=== PATIENT | male | born 1945 | race Caucasian/White ===

== ENCOUNTER 2020-02-03 16:01 | Outpatient (CLI) | payer MEDICARE, SELFPAY ==
--- NOTE | ~2020-02-03 | US_ITS ---
EXAMINATION: US venous doppler [facility] DATE: 02/03/2020 16:40 INDICATION: Right lower limb pain. TECHNIQUE: Grayscale ultrasound images without and with compression and Doppler ultrasound images of the bilateral lower extremity veins were obtained. COMPARISON: Ultrasound 01/27/2019 FINDINGS: The visualized portions of right common femoral vein, profunda (deep) femoral vein, femoral vein, pop liteal vein, peroneal veins, posterior tibial veins, and greater saphenous vein outflow are patent. The visualized portions of left common femoral vein, profunda femoral vein, femoral vein, popliteal v ein, peroneal veins, posterior tibial veins, and greater saphenous vein outflow are patent. IMPRESSION: 1. No deep venous thrombosis. Reviewed, dictated and finalized at location B.
== END 2020-02-03 16:02 | disposition home or self-care (01) ==
PROVIDERS: PCP Family Medicine; Visit Provider Physician Assistant Surgical
DX: M25.561 Pain in right knee (principal); R60.0 Localized edema
CPT/HCPCS: 93970

== ENCOUNTER 2020-06-23 09:00 | Outpatient (RCR) | payer MEDICARE, SELFPAY ==
--- NOTE | 2020-05-31 10:12 | PTOPEVAL ---
PHYSICAL THERAPY EVALUATION AND PLAN OF CARE 05-31-2020 Thank you for referring Orlando Dial to [facility] Rao is scheduled to be seen for therapy? 2-3 x/week for 3 weeks. Please review, sign, date and return this plan of care REEMA. I agree with and certify that the following plan of care is medically necessary. 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 ; Cardiovascular History Hx Hypertension Yes: Meds; Respiratory History Hx Respiratory Disorders No Significant History Gastrointestinal History Hx Gastrointestinal Disorders No Significant History Genitourinary History Hx Genitourinary Disorders No Significant History Musculoskeletal History Hx Musculoskeletal Disorders No Significant History Hematological History Hx Hematological Disorders No Significant History Endocrine History Hx Diabetes Yes: med control HEENT History Hx HEENT Disorders No Significant History Evaluation Information Problem Diagnosis B LE lymphedema Onset Jan 27, 2020 Prior Level of Function Activity Level (Last 3 Months) Occupation retired Activity of Daily Living Ability Independent Indoor/Home Mobility Independent Community Mobility Independent Stairs Ability Independent Functional Cognition (Planning, Shopping Independent , Taking Medications) Cooking Yes Cleaning Yes Laundry Yes Shopping Yes Driving Yes Home Setting Home Type House,Multiple Levels Environmental Barriers Stairs, Greater than 4 Living Situation With Spouse Mobility Assistive Devices (Used Last 3 None,Cane Months) Comments Additional Prior Level of Function have steps at home, but stays Comments on main level most of the time ; use cane in community and for distances; no falls since fall in January, that started swelling problems; Pain Assessment Timing of Pain Assessment Timing of Pain Assessment Assessment Self Report Self Report Pain Level 0 Pain Score Pain Score 0: Self Report Additional Pain Score Comments no
--- NOTE | 2020-06-14 14:23 | PCPTNOTE ---
Patient called & cancelled scheduled appointment this date due to broke her arm.]
--- NOTE | 2020-06-16 09:22 | PCPTNOTE ---
pt called and canceled today's appt due to having to care for his , who broke her arm and cannot be left alone at this time.
--- NOTE | 2020-06-23 09:53 | PTOPEVAL ---
PHYSICAL THERAPY DISCHARGE 06-23-2020 Refer to clinical summary below, for his status at discharge. He had been educated on lymphedema care and has compression knee highs, 20-30 mmHg to manage it. Thank you for referring Orlando Dial to [facility].? Please review, sign, date and return this discharge REEMA. I agree with and certify that the following plan of care is medically necessary. Referring Physician Date Attending Provider: Marquez Murray MD Document 06/23/20 09:05 AMAN (Rec: 06/23/20 09:44 AMAN [id number]) Assessment Status Discharge Subjective Information Rao reports: using the Query Text:As Reported By Patient/ compression knee highs; saw Family few days ago, have lost 35# ; is trying to walk more, but has been busy helping , since she fell and fractured her arm; agrees to discharge from PT services. Pain Assessment Timing of Pain Assessment Timing of Pain Assessment Assessment Self Report Self Report Pain Level 0 Pain Score Pain Score 0: Self Report Lower Extremity Range of Motion General Lower Extremity Range of Motion Gross Lower Extremity Range of Motion sitting: hip ER with R and L Comments is able to place foot on thigh - just above knee, with assist of UE's to move Lower Extremity Muscle Strength Testing General Lower Extremity Strength Gross Lower Extremity Strength supine R and L LE: SLR and hip abduction x 20 reps; indep with HEP for LE strengthening and increase walking and activity as toleraated; Gait Assessment Gait Assessment Ambulation Assistive Devices None,Cane Ambulation Ability Independent Additional Ambulation Comments use of cane in community/ at home is not using; Lymphedema Therapy Skin Inspection Location Left Lower Extremity,Right Lower Extremity Skin Observations Absence of Leg Hair,Dorsum Foot Swelling, Hyperpigmentation Lymphedema Stage I Skin Inspection Comment R lower leg with minimal to moderate brown discoloration, without redness; no fibrosis or tenderness over lower leg; minimal dorsum foot edema; L lower leg with minimal brown discoloration without redness
== END 2020-08-15 12:15 | disposition home or self-care (01) ==
LOC: ANHPT 09:00
PROVIDERS: PCP Family Medicine; Visit Provider Plastic Surgery
DX: I89.0 Lymphedema, not elsewhere classified (principal)
CPT/HCPCS: 97140; 97161

== ENCOUNTER 2020-10-19 17:54 | Emergency (ER) | payer MEDICARE, SELFPAY ==
--- NOTE | ~2020-10-19 | XR_ITS ---
EXAMINATION: XR ribs RT 2V w CXR 2V DATE: 10/19/2020 19:06 INDICATION: Lower right back and rib pain post fall TECHNIQUE: PA and lateral views of the chest and 4 views of the right ribs were obtained. COMPARISON: Chest radiograph dated 01/27/2019 FINDINGS: Chronic eventration along the right hemidiaphragm. Again seen are predominantly streaky opacities in the left mid and bilateral lower lung zones. No pleural effusion or pneumothorax. Cardiomegaly. No ev ident rib fractures. Moderate right glenohumeral osteoarthritis. There are bridging osteophytes at mu ltiple levels in the spine, consistent with diffuse idiopathic skeletal hyperostosis (DISH). IMPRESSION: 1. No rib fractures identified. 2. Streaky opacities in the left mid and bilateral lower lung zones and favor atelectasis over pneumo ella. 3. Cardiomegaly. Reviewed, dictated and finalized at location A. IMPRESSION: 1. No rib fractures identified. 2. Streaky opacities in the left mid and bilateral lower lung zones and favor a telectasis over pneumonia. 3. Cardiomegaly.
--- NOTE | ~2020-10-19 | CT_ITS ---
EXAMINATION: CT brain wo con DATE: 10/19/2020 18:54 INDICATION: Fall with head injury in a patient on blood thinners. TECHNIQUE: Computed tomography (CT) of the head was performed without intravenous contrast. Sagittal and coronal reconstructions were performed. The mA was adjusted according to patient size. Iterative reconstruction technique was employed. The dose-length product was 681.00 mGy-cm. COMPARISON: head CT dated 04/21/2009 FINDINGS: No fracture. Small old lacunar infarcts in the right rashid and in the body of the left caudate nucleus and adjacent left frontal davis radiata. No acute intracranial hemorrhage, acute infarction or abno rmal extra axial fluid collection. There is mild scattered white matter hypoattenuation consistent wi th chronic small vessel ischemic disease. Symmetric prominence of the sulci consistent with mild age -appropriate diffuse cerebral volume loss. Ventricles are normal and symmetric. No mass/mass effect. The orbits, paranasal sinuses and mastoid air cells are normal. Intracranial calcified cerebral athe rosclerosis is noted. IMPRESSION: 1. No fracture or acute intracranial process. 2. Small old lacunar infarcts at the left caudate nucleus and right rashid. 3. Age-related changes including mild diffuse volume loss and mild scattered white matter hypoattenua tion consistent with chronic small vessel ischemic disease. Reviewed, dictated and finalized at location A. IMPRESSION: 1. No fracture or acute intracranial process. 2. Small old lacunar infarcts at the left caudate nucleus and right rashid. 3. Age-related changes including mild diffuse volume loss and mild scattered wh ite matter hypoattenuation consistent with chronic small vessel ischemic diseas e.
[2020-10-19 18:23] VITALS: BP 140/64; PULSE 57; RESP 16; TEMP 36.1; O2SAT 95
--- NOTE | 2020-10-19 18:28 | ECG_ITS ---
Measurements Intervals [place] Rate: 60 P: [place]: 0 QRS: -35 QRSD: 85 T: 0 QT: 417 QTc: 418 Interpretive Statements ATRIAL FIBRILLATION LOW QRS VOLTAGE IN PRECORDIAL LEADS ANTEROSEPTAL INFARCT, AGE INDETERMINATE INFERIOR INFARCT, AGE INDETERMINATE BASELINE ARTIFACT- I, II, V4-V6 ABNORMAL ECG Electronically Signed On 10-20-2020 7:06:44 CDT by Richardson Berger D.O.
--- NOTE | 2020-10-19 22:05 | ED.FALL ---
HPI - Fall General Chief Complaint: Fall Stated Complaint: fall with head and back injury, takes coumadin Time Seen by Provider: 10/19/20 21:05 Source: patient Mode of arrival: ambulatory Limitations: no limitations History of Present Illness HPI Narrative: Patient is a 75-year-old male complaining of head and right rib pain after he slipped and fell at home. Patient states that his pain is moderate. Patient denies any neck, chest, back, pelvis, hip or any extremity pain/injury. Related Data Allergies Allergy/AdvReac Type Severity Reaction Status Date / Time No Known Allergies Allergy Verified 06/07/20 14:50 Review of Systems Review of Systems: All systems reviewed & are unremarkable except as noted in HPI and below Constitutional: Constitutional: Denies body ache(s), Denies chills, Denies excessive sweating, Denies fatigue, Denies fever(s), Denies headache(s), Denies lethargy, Denies malaise, Denies weakness and Denies weight loss Eyes: Eyes: Denies blurry vision, Denies change in vision and Denies loss of vision ENT: Denies dizziness, Denies ear discharge, Denies headache(s), Denies lip swelling, Denies epistaxis, Denies nasal congestion, Denies neck pain, Denies throat swelling and Denies tongue swelling Cardiovascular: Cardiovascular: Denies chest pain, Denies chest pain at rest, Denies chest pain with activity, Denies diaphoresis, Denies rapid heart rate, Denies edema, Denies irregular heart rhythm, Denies lightheadedness, Denies palpitations, Denies dyspnea and Denies dyspnea on exertion Respiratory: Respiratory: Denies chest congestion, Denies cough, Denies hemoptysis, Denies dyspnea and Denies dyspnea on exertion Gastrointestinal: Gastrointestinal: Denies abdominal pain, Denies melena, Denies hematochezia, Denies diarrhea, Denies nausea, Denies vomiting and Denies hematemesis Musculoskeletal: Musculoskeletal: Denies abnormal gait, Denies deformity, Denies joint swelling, Denies limited range of motion, Denies neck pain and Denies numbness Neurologic: Denies Abnormal speech present, Denies abnormal gait, Denies confusion, Denies dizziness, Denies headache(s), Denies focal weakness, Denies loss of vision, Denies numbness, Denies Other visual disturbances, Denies Sensory deficit (Neuro) and Denies weakness Psychiatric: Psychiatric: Denies confusion, Denies depression, Denies auditory hallucinations, Denies homicidal ideation and Denies suicidal ideation Endocrine: Endocrine: Denies cold intolerance, Denies excessive sweating, Denies fatigue, Denies heat intolerance and Denies palpitations Hematologic/Lymphatic: Hematologic/Lymphatic: Denies easy bleeding and Denies easy bruising Allergic/Immunologic: Allergic/Immunologic: Denies lip swelling, Denies throat swelling and Denies tongue swelling PMFSH Past Medical History Medical History Arthritis Cancer Cardiac arrhythmia Diabetes Essential hypertension Myocardial infarction Right knee pain Stroke Testicular hypofunction Surgical History Surgical History History of cataract extraction History of tonsillectomy Family History Family History Mother Hypertension Family history of cardiovascular disease Cerebrovascular accident Father Hypertension Cerebrovascular accident Sibling Family history of cardiovascular disease Social History Social History Smoking status: Never smoker Second hand tobacco smoke exposure: No Alcohol intake: never Substance use: never Substance use type: does not use Gender identity (if verbalized by the patient): Male Spiritual care concerns: Yes Agree to blood products: Yes Exam Const: General: cooperative, healthy appearing, comfortable, no acute distress, well developed, alert and awake; No
[2020-10-19] MEDS: HYDROcodone/acetaminophen (*CRX) 5-325 MG TABLET 1 TAB PO (22:53)
[2020-10-19] MEDS: TETANUS,DIPHTHERIA,AC PERTUSSIS ADULT (0.5 ML) BOOSTRIX IM (22:53)
[2020-10-20 00:03] LABS: Glucose Point of Care 225 (65-105)
[2020-10-20 00:39] VITALS: BP 132/86; PULSE 75; RESP 16; TEMP 36.3; O2SAT 97
== END 2020-10-20 00:40 | disposition home or self-care (01) ==
PROVIDERS: Emergency Provider Emergency Medicine; PCP Physician Assistant
DX: S20.211A Contusion of right front wall of thorax, initial encounter (principal); S09.90XA Unspecified injury of head, initial encounter; I48.91 Unspecified atrial fibrillation; Z23 Encounter for immunization; M19.90 Unspecified osteoarthritis, unspecified site; I10 Essential (primary) hypertension; E11.9 Type 2 diabetes mellitus without complications; I25.2 Old myocardial infarction; Z86.73 Personal history of transient ischemic attack (TIA), and cerebral infarction without residual deficits; Z98.49 Cataract extraction status, unspecified eye; Z79.01 Long term (current) use of anticoagulants; R94.31 Abnormal electrocardiogram [ECG] [EKG]; W01.0XXA Fall on same level from slipping, tripping and stumbling without subsequent striking against object, initial encounter
CPT/HCPCS: 70450; 71046; 71100; 82948; 90471; 90715; 93005; 99284; A9270

== ENCOUNTER 2021-08-01 10:27 | Outpatient (CLI) | payer MEDICARE, SELFPAY ==
--- NOTE | ~2021-08-01 | US_ITS ---
EXAMINATION: US venous doppler LE RT DATE: 08/01/2021 11:17 INDICATION: Open wound at the right lower limb. TECHNIQUE: Grayscale ultrasound images without and with compression and Doppler ultrasound images of the right lower extremity veins were obtained. COMPARISON: 02/03/2020 FINDINGS: The visualized portions of right common femoral vein, profunda (deep) femoral vein, femoral vein, pop liteal vein, peroneal trunk, posterior tibial veins, peroneal veins, gastrocnemius vein and greater s aphenous vein outflow are patent. IMPRESSION: 1. No deep venous thrombosis in the right lower limb. Reviewed, dictated and finalized at location A. ERENTIAL SPECIALIST
== END 2021-08-01 10:28 | disposition home or self-care (01) ==
PROVIDERS: PCP Family Medicine; Visit Provider Family Medicine
DX: M79.89 Other specified soft tissue disorders (principal)
CPT/HCPCS: 93971

== ENCOUNTER 2021-08-18 07:29 | Outpatient (RCR) | payer MEDICARE, SELFPAY ==
[2021-08-10 09:38] VITALS: BMI 40.9
--- NOTE | 2021-08-17 09:02 | PCWOUND ---
WOCN NOTE patient called to cancel appointment for today due to the weather conditions. Rescheduled for tomorrow 08/18/21 at 1230. Patient to call and cancel if weather still bad.
--- NOTE | 2021-08-29 15:15 | PCWOUND ---
WOCN NOTE patient called to cancel his appointment on 08/31/21, states that the wound is healed. Will contact wound center for any questions or concerns in the future.
== END 2021-10-31 08:47 | disposition home or self-care (01) ==
LOC: ANHWOC 07:29
PROVIDERS: PCP Family Medicine; Visit Provider Family Medicine
DX: I83.009 Varicose veins of unspecified lower extremity with ulcer of unspecified site (principal); L97.909 Non-pressure chronic ulcer of unspecified part of unspecified lower leg with unspecified severity
CPT/HCPCS: 99212; G0463

== ENCOUNTER → 2021-10-31 11:06 | Outpatient (CLI) | payer MEDICARE, SELFPAY ==
--- NOTE | ~2021-10-31 | XR_ITS ---
XR chest 2V DATE: 10/31/2021 11:43 INDICATION: Shortness of breath TECHNIQUE: 2 projections, 3 radiographs COMPARISON: October 19, 2020 PA and lateral chest FINDINGS: Cardiomegaly. Aortic arch calcification. There is pulmonary vascular congestion and redistribution. There infiltrates and/atelectasis in the m id and particularly lower lung zones. There is mild blunting of costophrenic angle suggesting bilater al small pleural effusions. Diffuse osteopenia. IMPRESSION: Cardiac megaly, congestive change Bilateral mid and predominantly lower lung infiltrate and/or atelectasis Reviewed, dictated and finalized at location B.
== END ==
PROVIDERS: PCP Family Medicine; Visit Provider Physician Assistant
DX: R06.02 Shortness of breath (principal); I51.7 Cardiomegaly
CPT/HCPCS: 71046

== ENCOUNTER 2021-11-24 10:04 | Outpatient (CLI) | payer MEDICARE, SELFPAY ==
--- NOTE | ~2021-11-24 | NM_ITS ---
EXAMINATION: NM kimberly stress w perfusion DATE: 11/24/2021 13:30 INDICATION: Obesity presenting with heart failure TECHNIQUE: Rest images were obtained following intravenous administration of 9.8 mCi Tc99m tetrofosmi n (Myoview). The patient was infused intravenously with Lexiscan (Regadenoson). Then, 21.77 mCi Tc99m tetrofosmin (Myoview) was administered intravenously, and stress images were obtained. Data was gadiel nstructed into short axis and horizontal and vertical long axis SPECT images. Gated SPECT images were also obtained. COMPARISON: None. FINDINGS: Perfusion defect on the stress images at the apical anterior, apical lateral, mid anterolat eral, mid inferolateral and basilar inferolateral segments which is primarily reversible consistent w ith ischemia. Small mild nonreversible infarct evident on the rest images at the apical lateral and m id anterolateral segments. There is normal left ventricular chamber size, wall motion and ejection f raction. Left ventricular ejection fraction measures >70%. IMPRESSION: 1. Mild predominantly reversible ischemia involving a significant portion of the left circumflex yony nary artery vascular distribution with small mild nonreversible infarct at the apical lateral and mid anterolateral segments. 2. Left ventricular ejection fraction measuring >70%. Reviewed, dictated and finalized at location B. IMPRESSION: 1. Mild predominantly reversible ischemia involving a significant portion of th e left circumflex coronary artery vascular distribution with small mild nonreve rsible infarct at the apical lateral and mid anterolateral segments. 2. Left ventricular ejection fraction measuring >70%.
--- NOTE | 2021-11-24 10:14 | EST_ITS ---
Patient Info Name: Orlando Dial Age: 76 years : 1945 Gender: Male Ht: 72 in Wt: 299 lbs BSA: 2.68 m2 Exam Date: 11/24/2021 11:22 AM Exam Location: [facility] Stress Patient Status: Outpatient Admit Date: 11/24/2021 Staff Ordering Physician: Richardson Berger DO Attending Provider: Richardson Berger DO Exercise Technologist: Betzaida Lara RDCS Exercise Physician: Richardson Berger DO Exam Type: CA stress kimberly w NM Study Info Indications - HEART FAILURE A regadenoson stress test was performed. Summary 1. 1. Negative lexiscan stress test for ischemic ST changes by ECG criteria. 2. 2. Baseline hypertension. 3. 3. Nuclear scan to follow and will be reported separately. Please correlate with it. 4. 4. Patient informed of the above results. Protocol: Lexiscan Stress ECG Details Stage: REST Duration (min): 0 min : 48 sec HR (bpm): 76 SBP (mmHg): 143 DBP (mmHg): 97 Stage: REST Duration (min): 6 min : 17 sec HR (bpm): 77 SBP (mmHg): 143 DBP (mmHg): 97 Stage: STAGE 1 Duration (min): 1 min : 0 sec HR (bpm): 89 SBP (mmHg): 125 DBP (mmHg): 82 Stage: RECOVERY Duration (min): 1 min : 0 sec HR (bpm): 83 SBP (mmHg): 125 DBP (mmHg): 82 Stage: RECOVERY Duration (min): 2 min : 0 sec HR (bpm): 87 SBP (mmHg): 153 DBP (mmHg): 70 Stage: RECOVERY Duration (min): 3 min : 0 sec HR (bpm): 84 SBP (mmHg): 153 DBP (mmHg): 70 Stage: RECOVERY Duration (min): 3 min : 25 sec HR (bpm): 77 SBP (mmHg): 134 DBP (mmHg): 68 Rest HR: 77 bpm Peak HR: 95 bpm Rest Sys BP: 143 mmHg Peak Sys BP: 153 mmHg Max Pred HR: 142 bpm % Max Pred HR: 67 % Target HR: 121 bpm Max RPP: 14,535 bpm*mmHg Termination Reason: Completed protocol Cardiac Symptoms: None Total Time: 1 min : 0 sec Rest Tsang BP: 97 mmHg Peak Tsang BP: 70 mmHg Total Dose: 0.4 mg Resting ECG Atrial fibrillation, low voltage in diffuse leads, borderline ST abnormality in diffuse leads. Stress ECG No ST changes. Arrhythmias None. Report Signatures
== END 2021-11-24 10:05 | disposition home or self-care (01) ==
PROVIDERS: PCP Family Medicine; Visit Provider Internal Medicine Cardiovascular Disease
DX: I50.9 Heart failure, unspecified (principal)
CPT/HCPCS: 78452; 93017; A9502; J2785

== ENCOUNTER 2021-11-27 07:25 | Outpatient (CLI) | payer MEDICARE, SELFPAY ==
--- NOTE | 2021-11-27 07:30 | ECHO_ITS ---
Patient Info Name: Orlando Dial Age: 76 years : 1945 Gender: Male Ht: 72 in Wt: 300 lbs BSA: 2.69 m2 HR: 70 bpm BP: 127 / 69 mmHg Heart Rhythm: Atrial Fibrillation Technical Quality: Fair Exam Date: 11/27/2021 8:03 AM Exam Location: [facility] Patient Status: Outpatient Admit Date: 11/27/2021 Staff Ordering Physician: Richardson Berger DO Facilities Engineering Manager: Betzaida Lara RDCS Attending Provider: Richardson Berger DO Referring Physician: Ab HERNANDEZ; Exam Type: CA echo doppler color flow Study Info Indications I50.9 - Heart failure, unspecified Complete two-dimensional, color flow and Doppler transthoracic echocardiogram is performed. Summary 1. Complete two-dimensional, color flow and Doppler transthoracic echocardiogram is performed. 2. Left ventricular chamber dimension is normal. 3. Left ventricular systolic function is normal, estimated at 50-55%. 4. The left ventricular diastolic function is abnormal. 5. E/e' 11 is mildly elevated. 6. Global longitudinal strain is abnormal at -12.8%. 7. Atrial fibrillation. 8. Right ventricular chamber dimension is mildly enlarged. 9. Right ventricular systolic function is moderately reduced and with abnormal TAPSE 1.3 cm. 10. Left atrial chamber dimension is severely enlarged. 11. Right atrial chamber dimension is severely enlarged. 12. There is mild aortic valve sclerosis. 13. There is mild mitral valve regurgitation. 14. There is trace tricuspid valve regurgitation. 15. Severe pulmonary hypertension, estimated pulmonary arterial systolic pressure is 64 mmHg. 16. There is trace pulmonic regurgitation. 17. Dilated inferior vena cava with >50% collapse upon inspiration consistent with elevated right atrial pressure, 10 mmHg. 18. There is small circumferential pericardial effusion. Left Ventricle E/e' 11 is mildly elevated. Global longitudinal strain is abnormal at -12.8%. Atrial fibrillation. Left ventricular chamber dimension is normal. Left ventricular systolic function is normal, estimated at 50-55%. The left ventricular diastolic function is abnormal. Right Ventricle Right ventricular systolic function is moderately reduced and with abnormal TAPSE 1.3 cm. Right ventricular chamber dimension is mildly enlarged. Left Atria Left atrial chamber dimension is severely enlarged. Right Atria Right atrial chamber dimension is severely enlarged. Aortic Valve The aortic valve is trileaflet. There is mild aortic valve sclerosis. There is no aortic valve stenosis. There is no aortic valve regurgitation. Pulmonic Valve There is trace pulmonic regurgitation. Mitral Valve There is no mitral valve stenosis. There is mild mitral valve regurgitation. Tricuspid Valve There is trace tricuspid valve regurgitation. Severe pulmonary hypertension, estimated pulmonary arterial systolic pressure is 64 mmHg. Pericardium/Pleural There is small circumferential pericardial effusion. Inferior Vena Cava Dilated inferior vena cava with >50% collapse upon inspiration consistent with elevated right atrial pressure, 10 mmHg. Aorta The aortic root size at the sinus of Valsalva is normal. Left Ventricular Outflow Tract Name Value Normal LVOT 2D LVOT Rolanda
== END 2021-11-27 07:26 | disposition home or self-care (01) ==
PROVIDERS: PCP Family Medicine; Visit Provider Internal Medicine Cardiovascular Disease
DX: I50.9 Heart failure, unspecified (principal); I48.91 Unspecified atrial fibrillation; R93.1 Abnormal findings on diagnostic imaging of heart and coronary circulation; I08.3 Combined rheumatic disorders of mitral, aortic and tricuspid valves; I27.20 Pulmonary hypertension, unspecified; I31.3 Pericardial effusion (noninflammatory)
CPT/HCPCS: 93306

== ENCOUNTER 2023-04-03 09:19 | Outpatient (CLI) | payer MEDICARE, SELFPAY ==
[2023-04-03 10:50] LABS: Influenza A QL RT-PCR Negative (Negative); Influenza B QL RT-PCR Negative (Negative); RSV RNA, RT-PCR Negative (Negative); SARS-CoV-2 RNA PCR Negative (Negative)
== END 2023-04-03 09:20 | disposition home or self-care (01) ==
LOC: ANHLAB 09:21
PROVIDERS: PCP Family Medicine; Visit Provider Physician Assistant
DX: R05.9 Cough, unspecified (principal); Z20.822 Contact with and (suspected) exposure to COVID-19
CPT/HCPCS: 87637

== ENCOUNTER 2023-10-08 09:43 | Emergency (ER) | payer MEDICARE, SELFPAY ==
[2023-10-08] VITALS (22 sets, daily range): BP systolic 120–149; BP diastolic 61–83; PULSE 51–72; RESP 13–30; TEMP 36.5; O2SAT 94–98
--- NOTE | ~2023-10-08 | XR_ITS ---
XR chest 1V 10/08/2023 11:35 Indication: CVA. Hypertension. Procedure: AP view of the chest Comparison: No prior studies for comparison. Findings: Cardiomegaly. Mild interstitial edema appear elevated right diaphragm. No significant effus ion. No pneumothorax. Impression: 1: Cardiomegaly with interstitial edema. Reviewed, dictated and finalized at location B. Impression: 1: Cardiomegaly with interstitial edema.
--- NOTE | ~2023-10-08 | CT_ITS ---
EXAMINATION: CTA BRAIN/CAROTID DATE: 10/08/2023 11:27 INDICATION: Stroke with 3 days of dizziness TECHNIQUE: Computed tomographic angiography (CTA) of the head and neck was performed with 100 mL Omni paque-350 intravenous contrast. Multiplanar reconstructions and maximum intensity projection 3D-recon structions of the carotid arteries and of the intracranial arteries were created by the technologist on a separate workstation. Precontrast CT of the head was also obtained. Automated exposure control and iterative reconstruction technique were employed.The dose-length product was 1876.77 mGy-cm. COMPARISON: None. FINDINGS: Carotid arteries: Visualized aortic arch is normal in caliber with no dissection. There is a small amount of nonhemodyn amically significant atherosclerotic plaque along the bilateral common carotid arteries. There is sma ll amount of atherosclerotic plaque with 0% stenosis of the right carotid bulb relative to normal dis earl artery lumen diameter (NASCET criteria). The more cephalad cervical portion of the bilateral inte rnal carotid arteries are tortuous. Visualized upper lungs are clear. 1.3 cm left thyroid nodule. Cer vical soft tissues and superior mediastinum are unremarkable. Mild thoracic spondylosis. Head: Small old lacunar infarct at the left parietal lobe davis radiata. No acute intracranial hemorrhage, acute infarction or abnormal extra axial fluid collection. There is mild scattered white matter hypo attenuation consistent with chronic small vessel ischemic disease. Symmetric prominence of the sulci consistent with mild to moderate age-appropriate diffuse cerebral volume loss. Ventricles are normal and symmetric. No mass/mass effect. Changes of bilateral intraocular lens replacement. The orbits, paranasal sinuses and mastoid air cells are normal. Intracranial arteries Right vertebral artery is dominant. There is small amount of nonhemodynamically significant atheroscl erotic plaque along the bilateral vertebral arteries and at the bilateral carotid siphons. Bilateral A1 and P1 segments are patent. There is also a patent anterior communicating artery. There is some at herosclerotic plaque along the bilateral M1 segments. In addition there are irregular contours to sev eral of the smaller arteries including the left M1 and bilateral P1 segments and the left vertebral a rteries segments with beads on a string appearance which can be seen with fibromuscular dysplasia. Th ere is a severe >70% stenosis at the bifurcation of the left M1 segment. There is a moderate 50-70% s tenosis at the left P1 segment and along the left vertebral artery. There are no aneurysms identified . Cerebral arterial arborization appears symmetric. IMPRESSION: 1. Small amount of atherosclerotic plaque with 0% stenosis of the right and left carotid bulbs relati ve to normal distal artery lumen diameter (NASCET criteria). 2. Irregular contour to many of the smaller intracranial arteries with beads on a string appearance c onsistent with fibromuscular dysplasia. This is most prominent at the left vertebral and left P1 segm ents where there is of 50-70% stenosis and at the bifurcation of the left M1 segment where there is a >70% stenosis. 3. Small old lacunar infarct at the left parietal lobe davis radiata. 3. Age-related changes including mild to moderate diffuse volume loss and mild scattered white matter hypoattenuation consistent with chronic small vessel ischemic disease. Reviewed, dictated and finalized at location A. IMPRESSION: 1. Small amount of atherosclerotic plaque with 0% stenosis of the right and lef t carotid bulbs relative to normal distal artery lumen diameter (NASCET criteri a). 2. Irregular contour to many of the smaller intracranial arteries with beads on a string appearance c
--- NOTE | 2023-10-08 10:15 | ECG_ITS ---
SEE SCANNED COPY FOR CONFIRMED REPORT MTDD
[2023-10-08 10:29] LABS: Basophils Absolute Auto 0.1 K/mm3 (0.0-0.1); Basophils Percent Auto 0.8 % (0.2-1.2); Eosinophils Absolute Auto 0.2 K/mm3 (0-0.3); Eosinophils Percent Auto 2.2 % (0-4.4); Hematocrit 44.7 % (42.0-52.0); Hemoglobin 14.4 g/dL (14.0-18.0); Immature Granulocyte Absolute 0.04 K/mm3 (0.00-0.031); Immature Granulocyte Percent A 0.5 % (0-0.5); Immature Platelet Fraction Pct 2.8 % (0.9-11.2); Lymphocytes Absolute Auto 1.37 K/mm3 (0.9-3.2); Lymphocytes Percent Auto 16.2 % (18.3-44.2); Mean Corpuscular HGB Conc 32.2 g/dl (32-36); Mean Corpuscular Hemoglobin 29.2 pg (26-34); Mean Corpuscular Volume 90.7 fl (80-100); Mean Platelet Volume 10.2 fl (7.4-10.4); Monocytes Absolute Auto 0.6 K/mm3 (0.1-0.6); Monocytes Percent Auto 6.6 % (2.6-8.5); Neutrophils Absolute Auto 6.3 K/mm3 (1.3-6.7); Neutrophils Percent Auto 73.7 % (45.5-73.1); Platelet Count Result 132 k/mm3 (150-375); Red Blood Count 4.93 M/mm3 (4.6-6.20); Red Cell Distribution Width 15.4 % (11.5-14.5); White Blood Count 8.5 K/mm3 (4.5-10.0)
[2023-10-08 10:37] LABS: Alanine Aminotransferase 15 U/L (6-50); Albumin Level 4.2 g/dL (3.5-5.1); Alkaline Phosphatase 107 U/L (38-126); Anion Gap 9 mmol/L (4-12); Aspartate Amino Transferase 22 U/L (17-59); Bilirubin,Total 1.4 mg/dL (0.2-1.3); Blood Urea Nitrogen 28 mg/dL (9-20); Calcium 9.2 mg/dL (8.4-10.2); Carbon Dioxide 24 mmol/L (22-30); Chloride 107 mmol/L (98-107); Estimated CRCL calculation 81 ml/min; Estimated Glomerular Filt Rate > 60; Glucose 169 mg/dL (65-110); Sodium 140 mmol/L (137-145)
[2023-10-08 10:43] LABS: INR 2.3; Prothrombin Time 26.8 Seconds (11.1-14.7)
--- NOTE | 2023-10-08 10:43 | ED.DIZZY ---
HPI - Dizziness General Chief Complaint: Dizziness Stated Complaint: dizzy Time Seen by Provider: 10/08/23 10:07 History of Present Illness HPI Narrative: 78-year-old male presenting to the emergency department for evaluation of onset vertigo symptoms that started at 2:00 a.m.. Patient states he is having no symptoms yesterday but woke up at 2:00 a.m. to walk to the bathroom he was having increased spinning sensation. Patient states when he is at rest he has no associated numbness weakness language changes or dizziness. But when he ambulates he has onset of a spinning sensation. 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 Related Data Allergies Allergy/AdvReac Type Severity Reaction Status Date / Time No Known Allergies Allergy Verified 10/08/23 09:52 Review of Systems Review of Systems: All systems reviewed & are unremarkable except as noted in HPI and below PMFSH Past Medical History Medical History Arthritis Cancer Cardiac arrhythmia Diabetes Essential hypertension Myocardial infarction Right knee pain Stroke Testicular hypofunction Urinary symptom or sign Surgical History Surgical History History of cataract extraction History of tonsillectomy Family History Family History Mother Hypertension Family history of cardiovascular disease Cerebrovascular accident Father Hypertension Cerebrovascular accident Sibling Family history of cardiovascular disease Social History Social History Smoking status: Never smoker Second hand tobacco smoke exposure: No Alcohol intake: never Substance use: never Substance use type: does not use Do You Feel Safe in your Home?: Yes Lack of Transportation: No Lack of Food: Never True Current Housing: I Have Housing Concerned About Future Housing: No Difficulty Paying Gas/Electric Bills: No Difficulty Paying for Meds: No Currently Unemployed: No Education: Master's Degree or Higher Difficulty w/ Childcare or Family Care: No Living arrangements: with family Occupation/Education: retired Gender identity (if verbalized by the patient): Male Spiritual care concerns: Yes Agree to blood products: Yes Exam Narrative: APPEARANCE: Well appearing, no pain, no distress, well-nourished. HEAD: normocephalic, atraumatic. EYES: PERRLA/EOMI, conjunctivae clear. NOSE: Normal no drainage EARS:TMS clear with good light reflex. THROAT: Pharynx clear, no exudate. NECK: Supple. No adenopathy, no masses. RESPIRATORY: Airway patent, respirations nonlabored. Clear to auscultation bilaterally, no rales, rhonchi, wheezing. CARDIOVASCULAR: Regular rate and rhythm without murmurs rubs or gallops. ABDOMINAL: Soft, nontender, nondistended, normal bowel sounds MUSCULOSKELETAL: Moves all extremities. Strength/ROM intact, No edema, No calf tenderness. NEURO: Alert. Cranial nerves II through XII intact. Normal strength reflexes with no focal deficit SKIN: Warm, dry. Normal Color Course Course Emergency Course: Patient did feel improved with treatment. Vital Signs Vital signs: Vital Signs Temperature 97.7 F 10/08/23 09:49 Pulse Rate 64 10/08/23 09:49 Respiratory Rate 18 10/08/23 09:49 Blood Pressure 130/61 10/08/23 09:49 Pulse Oximetry 97 10/08/23 09:49 Oxygen Delivery Room Air 10/08/23 09:49 Temperature 97.7 F 10/08/23 09:49 Pulse Rate 57 L 10/08/23 13:15 Respiratory Rate 21 H 10/08/23 13:15 Blood Pressure 130/70 10/08/23 13:01 Pulse Oximetry 97 10/08/23 13:15 Oxygen Delivery Room Air 10/08/23 09:49 MDM - Dizziness MDM Narrative Medical decision making narrative: 78-year-old male presenting to the emergency department for evaluation for acute onset of intermittent vertigo starting
[2023-10-08 10:44] LABS: Partial Thromboplastin Time 46.5 Seconds (22.3-36.8)
[2023-10-08 10:49] LABS: Troponin I < 0.012 ng/mL (0.000-0.034)
[2023-10-08] MEDS: MECLIZINE HCL 25 MG TABLET PO (11:47)
== END 2023-10-08 14:03 | disposition home or self-care (01) ==
PROVIDERS: Emergency Provider Emergency Medicine; PCP Family Medicine
DX: R42 Dizziness and giddiness (principal); I10 Essential (primary) hypertension; I25.2 Old myocardial infarction; E11.9 Type 2 diabetes mellitus without complications; M19.90 Unspecified osteoarthritis, unspecified site; Z86.73 Personal history of transient ischemic attack (TIA), and cerebral infarction without residual deficits; Z98.49 Cataract extraction status, unspecified eye; I51.7 Cardiomegaly; J81.1 Chronic pulmonary edema; I48.91 Unspecified atrial fibrillation
CPT/HCPCS: 36415; 70496; 70498; 71045; 80053; 84484; 85025; 85055; 85610; 85730; 93005; 99284; A9270; Q9967

== ENCOUNTER 2023-12-02 10:29 | Inpatient (IN) | payer MEDICARE, SELFPAY ==
--- NOTE | ~2023-12-02 | XR_ITS ---
XR foot RT min 3V Ordering provider: Rolando Felder APRN History: . fall yesterday pain RT ANKLE RADIATING INTO FOOT . Comparison: None. FINDINGS: BONES: Fracture of the medial and lateral malleolus is noted. Fracture of the distal calcaneus is als o noted. Fracture at the base of the proximal phalanx of the second and third toe with no displacemen t. The fractures are most likely extending to the joint. JOINT SPACES: Normal. No tarsal coalition. SOFT TISSUES: Normal. IMPRESSION: Fracture of the medial and lateral malleoli. Fracture of the distal calcaneus. Highly suggestive fracture at the base of the proximal phalanx of the second and third toes. Reviewed, dictated and finalized at location A. IMPRESSION: Fracture of the medial and lateral malleoli. Fracture of the distal calcaneus. Highly suggestive fracture at the base of the proximal phalanx of the second an d third toes.
--- NOTE | ~2023-12-02 | CT_ITS ---
EXAMINATION: CT ankle RT wo con DATE: 12/02/2023 12:12 INDICATION: Right ankle fracture TECHNIQUE: Computed tomography (CT) of the right ankle was performed without intravenous contrast. Au tomated exposure control and iterative reconstruction technique were employed. The dose-length produc t was 526.38 mGy-cm. COMPARISON: Right ankle radiographs dated 12/02/2023 FINDINGS: Marked diffuse osteopenia suspicious for pablito osteoporosis. Trimalleolar fracture at the right ankle with minimally displaced mildly comminuted fractures of the distal fibula which extends the oblique coronal plane from possible posteriorly to distal anteriorly with the fracture margin extending acros s the medial cortex anteriorly at the level of the tibiotalar joint line. There is also a minimally d isplaced transverse fracture across the medial malleolus and a nondisplaced coronally oriented fractu re extending across the posterior malleolus. There is also subtle linear calcific densities overlying the anteromedial and medial margins of the medial malleolus suspicious for mildly elevated small cor tical avulsion fractures. Alignment remains near-anatomic with congruent ankle mortise. No other frac tures identified at the talus or visualized mid or hindfoot. Prominent soft tissue in the subcutaneou s edema about the distal lower leg, ankle and extending over the dorsum of the hindfoot. No significa nt ankle joint effusion. Small enthesophytes and tiny enthesopathic ossicles at the calcaneal inserti on of the distal quadriceps tendon. IMPRESSION: 1. Minimally displaced trimalleolar fracture of the right ankle which remains in near-anatomic alignm ent. 2. Marked diffuse osteopenia suspicious for pablito osteoporosis. Reviewed, dictated and finalized at location A. IMPRESSION: 1. Minimally displaced trimalleolar fracture of the right ankle which remains i n near-anatomic alignment. 2. Marked diffuse osteopenia suspicious for pablito osteoporosis.
--- NOTE | ~2023-12-02 | XR_ITS ---
Right ankle Technique: AP, oblique, and lateral views were obtained. Clinical History: Pain Findings: There is an acute, oblique, mildly displaced fracture of the lateral meniscus, at and just proximal to the level ankle mortise. There is a transverse, minimally fracture of the medial malleolu s. Questionable posterior malleolus fracture on lateral view. Fractures overall minimally displaced. Ankle mortise and other visualized joint spaces are preserved. Diffuse soft tissue swelling noted. Impression: Acute fractures of the medial and lateral malleoli, as detailed above, with questionable additional p osterior malleolus fracture. Consider CT to confirm or exclude posterior malleolus fracture, as indic ated. Alignment of the ankle mortise is near anatomic. Soft tissue swelling. Reviewed, dictated and finalized at location . Impression: Acute fractures of the medial and lateral malleoli, as detailed above, with que stionable additional posterior malleolus fracture. Consider CT to confirm or ex clude posterior malleolus fracture, as indicated. Alignment of the ankle mortise is near anatomic. Soft tissue swelling.
[2023-12-02 10:30] VITALS: BP 161/58; PULSE 72; RESP 18; TEMP 36.4; O2SAT 96
--- NOTE | 2023-12-02 11:16 | ED.LOWEXIN ---
HPI - Extremity Injury (Lower) General Chief Complaint: Extremity Injury, Lower <Rolando Felder APRN - Last Filed: 12/02/23 15:37> Stated Complaint: fall, R. ankle pain <Rolando Felder APRN - Last Filed: 12/02/23 15:37> Time Seen by Provider: 12/02/23 10:32 <Rolando Felder APRN - Last Filed: 12/02/23 15:37> Source: patient <Rolando Felder APRN - Last Filed: 12/02/23 15:37> Mode of arrival: ambulatory <Rolando Felder APRN - Last Filed: 12/02/23 15:37> Limitations: no limitations <Rolando Felder APRN - Last Filed: 12/02/23 15:37> History of Present Illness HPI Narrative: Orlando is an 78-year-old male patient presenting to the emergency room with complaints of fall that occurred last night when coming down the stairs. He reports he injured his right ankle. Has right ankle swelling and tenderness. Is unable to bear weight without significant pain. <Rolando Felder APRN - Last Filed: 12/02/23 15:37> Related Data Home Medications: Home Medications Medication Instructions Recorded Confirmed insulin glargine 100 unit/mL (3 40 unit subcut HS 12/02/23 12/02/23 mL) subcutaneous pen (Lantus Solostar U-100 Insulin) metformin 500 mg tablet,extended 2,000 mg PO HS 12/02/23 12/02/23 release 24 hr <Rolando Felder APRN - Last Filed: 12/02/23 15:37> Allergies/Adverse Reactions: Allergies Allergy/AdvReac Type Severity Reaction Status Date / Time No Known Allergies Allergy Verified 10/15/23 09:17 <Rolando Felder APRN - Last Filed: 12/02/23 15:37> Review of Systems Review of Systems: Pertinent positives per HPI. Patient denies any fever, chills, rash, headache, visual changes, dizziness, cough, runny nose, sore throat, shortness of breath, chest pain, palpitations, nausea, vomiting, diarrhea, constipation, abdominal pain, or any urinary issues. <Rolando Felder APRN - Last Filed: 12/02/23 15:37> [facility] Past Medical History Medical History: Medical History Arthritis Cancer prostate cancer Cardiac arrhythmia atrial fibrillation Diabetes Essential hypertension Myocardial infarction Right knee pain Stroke Testicular hypofunction Urinary symptom or sign <Rolando Felder APRN - Last Filed: 12/02/23 15:37> Surgical History Surgical History: Surgical History History of cataract extraction History of tonsillectomy <Rolando Felder APRN - Last Filed: 12/02/23 15:37> Family History Family History: Family History Mother Hypertension Family history of cardiovascular disease Cerebrovascular accident Father Hypertension Cerebrovascular accident Sibling Family history of cardiovascular disease <Rolando Felder APRN - Last Filed: 12/02/23 15:37> Social History Social History: Social History Smoking status: Never smoker Second hand tobacco smoke exposure: No Alcohol intake: never Substance use: never Substance use type: does not use Do You Feel Safe in your Home?: Yes Lack of Transportation: No Lack of Food: Never True Current Housing: I Have Housing Concerned About Future Housing: No Difficulty Paying Gas/Electric Bills: No Difficulty Paying for Meds: No Currently Unemployed: No Education: Master's Degree or Higher Difficulty w/ Childcare or Family Care: No Living arrangements: with family Occupation/Education: retired Gender identity (if verbalized by the patient): Male Spiritual care concerns: Yes Agree to blood products: Yes <Rolando Felder APRN - Last Filed: 12/02/23 15:37> Comments At the time of my signature, I reviewed and agree with the nursing past medical, surgical, social, and family his
[2023-12-02] MEDS: HYDROcodone/acetaminophen (*CRX) 7.5-325 MG TABLET 1 TAB PO (12:59)
[2023-12-02 14:24] VITALS: BP 115/50; PULSE 66; RESP 18; O2SAT 98
--- NOTE | 2023-12-02 14:25 | PC.NURSE ---
Pt contacted for evaluation at this time.
[2023-12-02 16:08] VITALS: BP 123/56; PULSE 66; RESP 18; TEMP 36.4; O2SAT 95
[2023-12-02 16:19] LABS: Basophils Percent Auto 0.4 % (0.2-1.2); Eosinophils Absolute Auto 0.1 K/mm3 (0-0.3); Eosinophils Percent Auto 1.2 % (0-4.4); Hematocrit 42.2 % (42.0-52.0); Hemoglobin 13.5 g/dL (14.0-18.0); Immature Granulocyte Absolute 0.03 K/mm3 (0.00-0.031); Immature Granulocyte Percent A 0.3 % (0-0.5); Lymphocytes Absolute Auto 1.34 K/mm3 (0.9-3.2); Lymphocytes Percent Auto 14.5 % (18.3-44.2); Mean Corpuscular Hemoglobin 29.6 pg (26-34); Mean Corpuscular Volume 92.5 fl (80-100); Mean Platelet Volume 10.7 fl (7.4-10.4); Monocytes Absolute Auto 0.8 K/mm3 (0.1-0.6); Neutrophils Absolute Auto 6.9 K/mm3 (1.3-6.7); Neutrophils Percent Auto 74.6 % (45.5-73.1); Platelet Count Result 109 k/mm3 (150-375); Red Blood Count 4.56 M/mm3 (4.6-6.20); Red Cell Distribution Width 15.6 % (11.5-14.5); White Blood Count 9.3 K/mm3 (4.5-10.0)
--- NOTE | 2023-12-02 16:25 | PM.IMHP ---
H&P: HPI History of Present Illness Date/Time: 12/02/23 16:25 Chief Complaint: Fall Narrative: This is a pleasant 78-year-old gentleman with a past medical history significant for arthritis, prostate cancer, atrial fibrillation on Coumadin, diabetes on Lantus, hypertension, and stroke. The patient reported to the emergency room after sustaining a fall yesterday. He provides the following history. He states he was coming up the stairs from the basement when he tripped on the last step causing him to fall and injure his right ankle. He was able to walk on his foot with some discomfort, therefore he thought he had sprained his ankle. Over the next 24 hours pain increased and he had moderate swelling and ecchymosis to his right ankle. These symptoms prompted him to come to the emergency room for further evaluation. In the ER x-ray of his right ankle shows acute fractures of the medial and lateral malleoli with questionable posterior med malleolus fracture. Foot x-ray shows fracture of distal calcaneal and vanna suggestive fracture at the base of the proximal phalanx of the 2nd 3rd toes. There is also fracture of the medial and lateral malleoli as previously stated. Soft tissue swelling also noted. Further imaging under CT showed minimally displaced trimalleolar fracture of the right ankle in near anatomic alignment with marked diffuse osteopenia. Orthopedics was consulted and recommended posterior OCL splint placed with Radha and abdominal pad to the posterior heel. Patient is to be nonweightbearing. The patient was unable to tolerate crutch walking and therefore required admission for PT OT consult with need for possible placement in the interim until swelling can decrease in surgery can be performed. Cardiology was also consulted in the ER given patient's Coumadin. Cardiology is okay with holding Coumadin 5 days prior to surgery. They have been consulted for surgical clearance. In the ED lab significant for hemoglobin 13.5, platelet 109, BUN 30, creatinine 1.0, glucose 276. His vitals are stable with a blood pressure 123/56, heart rate 66. His medications have been reviewed and restarted. [facility] Past Medical History Medical History Arthritis Cancer prostate cancer Cardiac arrhythmia atrial fibrillation Diabetes Essential hypertension Myocardial infarction Right knee pain Stroke Testicular hypofunction Urinary symptom or sign Surgical History Surgical History History of cataract extraction History of tonsillectomy Family History Family History Mother Hypertension Family history of cardiovascular disease Cerebrovascular accident Father Hypertension Cerebrovascular accident Sibling Family history of cardiovascular disease Social History Social History Smoking status: Never smoker Second hand tobacco smoke exposure: No Alcohol intake: never Substance use: never Substance use type: does not use Do You Feel Safe in your Home?: Yes Lack of Transportation: No Lack of Food: Never True Current Housing: I Have Housing Concerned About Future Housing: No Difficulty Paying Gas/Electric Bills: No Difficulty Paying for Meds: No Currently Unemployed: No Education: Master's Degree or Higher Difficulty w/ Childcare or Family Care: No Living arrangements: with family Occupation/Education: retired Gender identity (if verbalized by the patient): Male Spiritual care concerns: Yes Agree to blood products: Yes Meds Home Medications and Allergies Home Medications Medication Instructions Recorded Confirmed Type blood sugar diagnostic #100 ea 03/01/21 12/02/23 Rx furosemide 40 mg tablet See Rx Instructions .Route 07/10/22 12/02/23 Rx .COMPLEX #180 tabs warfarin 1
[2023-12-02 16:27] LABS: Alanine Aminotransferase 15 U/L (6-50); Albumin Level 3.9 g/dL (3.5-5.1); Alkaline Phosphatase 97 U/L (38-126); Anion Gap 8 mmol/L (4-12); Aspartate Amino Transferase 20 U/L (17-59); Bilirubin,Total 1.1 mg/dL (0.2-1.3); Blood Urea Nitrogen 30 mg/dL (9-20); Calcium 8.5 mg/dL (8.4-10.2); Carbon Dioxide 23 mmol/L (22-30); Chloride 106 mmol/L (98-107); Estimated CRCL calculation 74 ml/min; Estimated Glomerular Filt Rate > 60; Glucose 276 mg/dL (65-110); Potassium 4.2 mmol/L (3.4-5.0); Sodium 137 mmol/L (137-145)
--- NOTE | 2023-12-02 16:37 | ADMGEN ---
This patient, Orlando Dial, was admitted to Medical Room 341-01. Patient/family oriented to hospital policies and general routines including ID bracelet, bed and alarms, visiting hours, pain management, procedures, bathroom and other care routines, personal items, smoking policy, room service/diet, and visiting hours. Information on how to activate the Rapid Response Team has been discussed. Patient/Family are encouraged to report perceived risks to care and to ask questions if they do not understand what they are told or what they should do.
[2023-12-02 17:20] VITALS: BMI 40.4
[2023-12-02] MEDS: ACETAMINOPHEN 325 MG TABLET 650 MG PO (20:47)
[2023-12-02] MEDS: TAMSULOSIN HCL 0.4 MG CAPSULE PO (20:53)
[2023-12-02 21:02] VITALS: BP 151/68; PULSE 68; RESP 18; TEMP 36.3; O2SAT 96
[2023-12-02] MEDS: INSULIN GLARGINE (*BKC) 100 UNITS/ML 32 UNITS SUB-Q (21:05)
[2023-12-02 21:38] LABS: Glucose Point of Care 209 mg/dl (65-105)
[2023-12-03] MEDS: ACETAMINOPHEN 325 MG TABLET 650 MG PO ×3 (01:02→20:19)
[2023-12-03 04:20] VITALS: BP 126/58; PULSE 68; RESP 18; TEMP 36.5; O2SAT 96
[2023-12-03 06:29] LABS: Basophils Percent Auto 0.5 % (0.2-1.2); Eosinophils Absolute Auto 0.3 K/mm3 (0-0.3); Eosinophils Percent Auto 3.3 % (0-4.4); Hematocrit 40.6 % (42.0-52.0); Hemoglobin 12.9 g/dL (14.0-18.0); Immature Granulocyte Absolute 0.03 K/mm3 (0.00-0.031); Immature Granulocyte Percent A 0.4 % (0-0.5); Immature Platelet Fraction Pct 4.1 % (0.9-11.2); Lymphocytes Absolute Auto 1.55 K/mm3 (0.9-3.2); Lymphocytes Percent Auto 18.7 % (18.3-44.2); Mean Corpuscular HGB Conc 31.8 g/dl (32-36); Mean Corpuscular Hemoglobin 29.7 pg (26-34); Mean Corpuscular Volume 93.5 fl (80-100); Mean Platelet Volume 11.3 fl (7.4-10.4); Monocytes Absolute Auto 0.8 K/mm3 (0.1-0.6); Neutrophils Absolute Auto 5.6 K/mm3 (1.3-6.7); Neutrophils Percent Auto 67.1 % (45.5-73.1); Platelet Count Result 93 k/mm3 (150-375); Red Blood Count 4.34 M/mm3 (4.6-6.20); Red Cell Distribution Width 15.8 % (11.5-14.5); White Blood Count 8.3 K/mm3 (4.5-10.0)
[2023-12-03 07:15] LABS: Alanine Aminotransferase 11 U/L (6-50); Albumin Level 3.5 g/dL (3.5-5.1); Alkaline Phosphatase 85 U/L (38-126); Anion Gap 7 mmol/L (4-12); Aspartate Amino Transferase 19 U/L (17-59); Bilirubin,Total 1.5 mg/dL (0.2-1.3); Blood Urea Nitrogen 30 mg/dL (9-20); Calcium 8.6 mg/dL (8.4-10.2); Carbon Dioxide 28 mmol/L (22-30); Chloride 105 mmol/L (98-107); Estimated CRCL calculation 74 ml/min; Estimated Glomerular Filt Rate > 60; Glucose 155 mg/dL (65-110); Potassium 4.6 mmol/L (3.4-5.0); Sodium 140 mmol/L (137-145)
[2023-12-03 07:45] LABS: Magnesium 2.2 mg/dL (1.6-2.3)
[2023-12-03] MEDS: allopurinoL 300 MG TABLET PO (08:23)
[2023-12-03] MEDS: DOCUSATE SODIUM 100 MG CAPSULE PO ×2 (08:23→17:18)
[2023-12-03] MEDS: FUROSEMIDE 40 MG TABLET BY MOUTH (08:24)
[2023-12-03] MEDS: SIMVASTATIN 10 MG TABLET PO (08:24)
[2023-12-03] MEDS: IRBESARTAN 150 MG TABLET 300 MG PO (08:24)
[2023-12-03] MEDS: EMPAGLIFLOZIN 25 MG TABLET BY MOUTH (08:39)
[2023-12-03] MEDS: glipiZIDE XL 5 MG TABCR 10 MG BY MOUTH (08:39)
[2023-12-03 08:46] LABS: Glucose Point of Care 170 mg/dl (65-105)
[2023-12-03 09:29] VITALS: O2SAT 96
--- NOTE | 2023-12-03 10:09 | P.PNIM_ITS ---
Progress Note: A&P Assessment and Plan (1) Closed trimalleolar fracture: Qualifiers: Encounter type: initial encounter Laterality: right Qualified Code(s): S82.851A - Displaced trimalleolar fracture of right lower leg, initial encounter for closed fracture Code(s): S82.853A - Displaced trimalleolar fracture of unspecified lower leg, initial encounter for closed fracture Status: Acute Assessment and Plan: 12/02/23: Orthopedics recommending splint and non-weight bearing status. Will need surgical intervention once the swelling has decreased. * splint placed in the ED * PT/OT consult for placement--may need fpc short stay until surgery can be completed * NWB to right foot * Tylenol, ibuprofen, norco, morphine for pain per scale * Elevate and ICE RLE 12/03/23: * Continue with pain control * Nonweightbearing right lower extremity * Continue to elevate and ice right lower extremity * PT and OT ordered * Plan for surgery once swelling has decreased (2) CHF (congestive heart failure): Code(s): I50.9 - Heart failure, unspecified Status: Acute Assessment and Plan: 12/02/23: Stable. Appears euvolemic. * Continue Lasix 40 mg, Irbesartan in 300 mg, * ECHO from 2021 shows LV systolic function normal with EF of 50-55%, abnormal diastolic dysfunction, a-fib, RV systolic function moderately reduced, left and right atrial chambers severely enlarged. * Repeat ECHO if recommended by cards 12/03/23: * No change to current treatment plan (3) Atrial fibrillation and flutter: Code(s): I48.91 - Unspecified atrial fibrillation; I48.92 - Unspecified atrial flutter Status: Acute Assessment and Plan: 12/02/23: EKG ordered and pending collection History of a-fib on Coumadin Coumadin currently on hold due to edema and surgery pending. Cardiology consulted for surgical clearance. 12/03/23: * Coumadin currently on hold due to pending surgery * Cardiology to see patient today for cardiac clearance for surgery (4) Diabetes: Qualifiers: Diabetes mellitus complication status: with hyperglycemia Diabetes mellitus usp insulin use: without intermediate school teacher use Diabetes mellitus type: type 2 Qualified Code(s): E11.65 - Type 2 diabetes mellitus with hyperglycemia Code(s): E11.9 - Type 2 diabetes mellitus without complications Status: Acute Assessment and Plan: 12/02/23: * Hgb A1C 7.9% * Lantus restarted at 20% reduction of home dose * high dose SSI * hypoglycemia protocol 12/03/23: * Blood glucose ranging 155-170 * Continue high-dose sliding scale insulin * Continue hypoglycemic protocol * Increase Lantus to 40 units subQ HS * Continue glipizide * Continue to hold metformin (5) BENNY on CPAP: Code(s): G47.33 - Obstructive sleep apnea (adult) (pediatric); Z99.89 - Dependence on other enabling machines and devices Status: Acute Assessment and Plan: 12/02/23: * Auto titration of home CPAP settings 12/03/23: * No change to current treatment plan Time Spent With Patient Time with patient: 25 - 35 minutes Subjective Date/time seen: 12/03/23 10:09 Interval history: 12/02/23: This is a pleasant 78-year-old gentleman with a past medical history significant for arthritis, prostate cancer, atrial fibrillation on Coumadin, diabetes on Lantus, hypertension, and stroke. The patient reported to the emergency room after sustaining a fall yesterday. He provides the following history. He states he was coming up the stairs from the bas
--- NOTE | 2023-12-03 10:09 | PM.IMPN ---
Progress Note: A&P Assessment and Plan (1) Closed trimalleolar fracture: Qualifiers: Encounter type: initial encounter Laterality: right Qualified Code(s): S82.851A - Displaced trimalleolar fracture of right lower leg, initial encounter for closed fracture Code(s): S82.853A - Displaced trimalleolar fracture of unspecified lower leg, initial encounter for closed fracture Status: Acute Assessment and Plan: 12/02/23: Orthopedics recommending splint and non-weight bearing status. Will need surgical intervention once the swelling has decreased. splint placed in the ED PT/OT consult for placement--may need care home short stay until surgery can be completed NWB to right foot Tylenol, ibuprofen, norco, morphine for pain per scale Elevate and ICE RLE 12/03/23: Continue with pain control Nonweightbearing right lower extremity Continue to elevate and ice right lower extremity PT and OT ordered Plan for surgery once swelling has decreased (2) CHF (congestive heart failure): Code(s): I50.9 - Heart failure, unspecified Status: Acute Assessment and Plan: 12/02/23: Stable. Appears euvolemic. Continue Lasix 40 mg, Irbesartan in 300 mg, ECHO from 2021 shows LV systolic function normal with EF of 50-55%, abnormal diastolic dysfunction, a-fib, RV systolic function moderately reduced, left and right atrial chambers severely enlarged. Repeat ECHO if recommended by cards 12/03/23: No change to current treatment plan (3) Atrial fibrillation and flutter: Code(s): I48.91 - Unspecified atrial fibrillation; I48.92 - Unspecified atrial flutter Status: Acute Assessment and Plan: 12/02/23: EKG ordered and pending collection History of a-fib on Coumadin Coumadin currently on hold due to edema and surgery pending. Cardiology consulted for surgical clearance. 12/03/23: Coumadin currently on hold due to pending surgery Cardiology to see patient today for cardiac clearance for surgery (4) Diabetes: Qualifiers: Diabetes mellitus complication status: with hyperglycemia Diabetes mellitus alf insulin use: without supervisor intermediates use Diabetes mellitus type: type 2 Qualified Code(s): E11.65 - Type 2 diabetes mellitus with hyperglycemia Code(s): E11.9 - Type 2 diabetes mellitus without complications Status: Acute Assessment and Plan: 12/02/23: Hgb A1C 7.9% Lantus restarted at 20% reduction of home dose high dose SSI hypoglycemia protocol 12/03/23: Blood glucose ranging 155-170 Continue high-dose sliding scale insulin Continue hypoglycemic protocol Increase Lantus to 40 units subQ HS Continue glipizide Continue to hold metformin (5) BENNY on CPAP: Code(s): G47.33 - Obstructive sleep apnea (adult) (pediatric); Z99.89 - Dependence on other enabling machines and devices Status: Acute Assessment and Plan: 12/02/23: Auto titration of home CPAP settings 12/03/23: No change to current treatment plan Time Spent With Patient Time with patient: 25 - 35 minutes Subjective Date/time seen: 12/03/23 10:09 Interval history: 12/02/23: This is a pleasant 78-year-old gentleman with a past medical history significant for arthritis, prostate cancer, atrial fibrillation on Coumadin, diabetes on Lantus, hypertension, and stroke. The patient reported to the emergency room after sustaining a fall yesterday. He provides the following history. He states he was coming up the stairs from the basement when he tripped on the last step causing him to fall and injure his right ankle. He was able to walk on his foot with some discomfort, therefore he thought he had sprained his ankle. Over the next 24 hours pain increased and he had moderate swelling and ecchymosis to his right ankle. These symptoms prompted him to come to the emergency room for further evaluation. In the ER x-ray of his right ankle shows acute fractures of
--- NOTE | 2023-12-03 10:30 | ECG_ITS ---
Test Date: 2023-12-03 10:29:53 Measurements Intervals [place] Rate: 74 P: 0 HI: 0 QRS: -6 QRSD: 88 T: -5 QT: 371 QTc: 413 Interpretive Statements ATRIAL FIBRILLATION LOW QRS VOLTAGE IN PRECORDIAL LEADS [QRS DEFLECTION < 1.0 mV IN CHEST LEADS] INFERIOR MYOCARDIAL INFARCTION , PROBABLY OLD [40+ ms Q WAVE AND/OR ST/T ABNORMALITY IN II/aVF] No previous ECG available for comparison Electronically Signed On 12-03-2023 10:54:02 CDT by Claudio Vides M.D.
[2023-12-03 12:37] LABS: Glucose Point of Care 156 mg/dl (65-105)
[2023-12-03 14:00] VITALS: BP 137/63; PULSE 80; RESP 18; TEMP 36.1; O2SAT 98
--- NOTE | 2023-12-03 14:53 | PCOTNOTE ---
Pt declines therapy this afternoon due to being too fatigued and getting back to bed recently.
[2023-12-03 17:14] LABS: Glucose Point of Care 188 mg/dl (65-105)
[2023-12-03 20:00] VITALS: PULSE 72; RESP 18; O2SAT 94
[2023-12-03] MEDS: INSULIN GLARGINE (*BKC) 100 UNITS/ML 40 UNITS SUB-Q (20:19)
[2023-12-03 20:37] VITALS: BP 123/51; PULSE 72; RESP 18; TEMP 36.8; O2SAT 94
[2023-12-03 22:30] VITALS: PULSE 72; RESP 23; O2SAT 97
[2023-12-03 22:43] LABS: Glucose Point of Care 261 mg/dl (65-105)
--- NOTE | 2023-12-04 | ECHO_ITS ---
Patient Info Name: Orlando Dial Age: 78 years : 1945 Gender: Male Ht: 72 in Wt: 297 lbs BSA: 2.67 m2 HR: 95 bpm BP: 153 / 90 mmHg Technical Quality: Fair Exam Date: 12/04/2023 12:17 PM Exam Location: Echo Lab Patient Status: Inpatient Admit Date: 12/02/2023 Staff Ordering Physician: Sarai Seals APRN Real Estate Representative: Sonali Chiu RDCS Attending Provider: Danya Cardona APRN Referring Physician: Arnel JESUS; Exam Type: CA echo doppler color flow Study Info Indications I48.1 - Persistent atrial fibrillation Complete two-dimensional, color flow and Doppler transthoracic echocardiogram is performed. Summary 1. Complete two-dimensional, color flow and Doppler transthoracic echocardiogram is performed. 2. Left ventricular chamber dimension is normal. 3. D shape interventricular septum in systole and diastole suggests right ventricular pressure and volume overload. 4. Left ventricular systolic function is normal, estimated at 60-65%. 5. The left ventricular diastolic function is indeterminate. 6. Atrial fibrillation. 7. Right ventricular chamber dimension is mildly enlarged. 8. Left atrial chamber dimension is moderately enlarged. 9. There is moderate aortic valve sclerosis. 10. The mitral valve has mildly calcified annulus. 11. There is mild tricuspid valve regurgitation. 12. Moderate pulmonary hypertension, estimated pulmonary arterial systolic pressure is 51 mmHg. Left Ventricle Tissue doppler is not performed. Atrial fibrillation. D shape interventricular septum in systole and diastole suggests right ventricular pressure and volume overload. Left ventricular chamber dimension is normal. Left ventricular systolic function is normal, estimated at 60-65%. The left ventricular diastolic function is indeterminate. Right Ventricle Right ventricular systolic function is normal and with normal TAPSE 2.1 cm. Right ventricular chamber dimension is mildly enlarged. Left Atria Left atrial chamber dimension is moderately enlarged. Right Atria Right atrial chamber dimension is normal. Aortic Valve The aortic valve is trileaflet. There is moderate aortic valve sclerosis. There is no aortic valve stenosis. There is no aortic valve regurgitation. Pulmonic Valve There is no pulmonic regurgitation. Mitral Valve The mitral valve has mildly calcified annulus. There is no mitral valve stenosis. There is no mitral valve regurgitation. Tricuspid Valve There is mild tricuspid valve regurgitation. Moderate pulmonary hypertension, estimated pulmonary arterial systolic pressure is 51 mmHg. Pericardium/Pleural There is no pericardial effusion. Inferior Vena Cava Normal inferior vena cava with >50% collapse upon inspiration consistent with normal right atrial pressure, 5 mmHg. Aorta The aortic root size at the sinus of Valsalva is normal. Left Ventricular Outflow Tract Name Value Normal LVOT 2D LVOT Diameter 2.2 cm LVOT Doppler LVOT Peak Gradient 3 mmHg LVOT Mean Gradient 2 mmHg LVOT VTI 17 cm LVOT VTI/AV VTI Ratio 0.9 LVOT Stroke Volume
[2023-12-04 05:34] VITALS: BP 153/90; PULSE 65; RESP 20; TEMP 36.4; O2SAT 94
[2023-12-04 05:42] LABS: Basophils Absolute Auto 0.1 K/mm3 (0.0-0.1); Basophils Percent Auto 0.6 % (0.2-1.2); Eosinophils Absolute Auto 0.4 K/mm3 (0-0.3); Eosinophils Percent Auto 3.9 % (0-4.4); Hematocrit 39.9 % (42.0-52.0); Hemoglobin 12.6 g/dL (14.0-18.0); Immature Granulocyte Absolute 0.07 K/mm3 (0.00-0.031); Immature Granulocyte Percent A 0.8 % (0-0.5); Immature Platelet Fraction Pct 3.3 % (0.9-11.2); Lymphocytes Absolute Auto 1.39 K/mm3 (0.9-3.2); Lymphocytes Percent Auto 14.9 % (18.3-44.2); Mean Corpuscular HGB Conc 31.6 g/dl (32-36); Mean Corpuscular Hemoglobin 29.5 pg (26-34); Mean Corpuscular Volume 93.4 fl (80-100); Mean Platelet Volume 10.7 fl (7.4-10.4); Monocytes Absolute Auto 0.9 K/mm3 (0.1-0.6); Monocytes Percent Auto 10.1 % (2.6-8.5); Neutrophils Absolute Auto 6.5 K/mm3 (1.3-6.7); Neutrophils Percent Auto 69.7 % (45.5-73.1); Platelet Count Result 111 k/mm3 (150-375); Red Blood Count 4.27 M/mm3 (4.6-6.20); Red Cell Distribution Width 15.6 % (11.5-14.5); White Blood Count 9.3 K/mm3 (4.5-10.0)
[2023-12-04 05:55] LABS: Alanine Aminotransferase 11 U/L (6-50); Albumin Level 3.6 g/dL (3.5-5.1); Alkaline Phosphatase 87 U/L (38-126); Anion Gap 5 mmol/L (4-12); Aspartate Amino Transferase 15 U/L (17-59); Bilirubin,Total 1.2 mg/dL (0.2-1.3); Blood Urea Nitrogen 28 mg/dL (9-20); Calcium 8.3 mg/dL (8.4-10.2); Carbon Dioxide 27 mmol/L (22-30); Chloride 107 mmol/L (98-107); Estimated CRCL calculation 82 ml/min; Estimated Glomerular Filt Rate > 60; Glucose 167 mg/dL (65-110); Magnesium 2.2 mg/dL (1.6-2.3); Potassium 3.7 mmol/L (3.4-5.0); Sodium 139 mmol/L (137-145)
--- NOTE | 2023-12-04 07:46 | PM.PNORT ---
Progress Note: A&P Assessment and Plan (1) Closed trimalleolar fracture: Qualifiers: Encounter type: initial encounter Laterality: right Qualified Code(s): S82.851A - Displaced trimalleolar fracture of right lower leg, initial encounter for closed fracture Code(s): S82.853A - Displaced trimalleolar fracture of unspecified lower leg, initial encounter for closed fracture Status: Acute Plan I have just discovered that the patient is admitted. I spoke to the emergency room physician about him on 12/01. There was a question of whether he would be admitted and in fact he was admitted but I was never notified of the admission nor was the patient's name put on our patient list and I think the same holds true with . The ER nurse practitioner put in a consult for both of us. I have spoken to the special weapons unit officer and she will call Dr. Berger and put the patient's name on Dr. Berger's list as well. Patient has a right trimalleolar ankle fracture that has some displacement of the medial and lateral malleoli. There is a minimally displaced posterior malleolus fracture that on the CT scan shows minimal displacement and could be left alone. There is an x-ray report on his foot x-ray of the right foot that indicates a calcaneus fracture. I did not appreciate that on my review of the x-rays and the CT scan of the hindfoot includes the calcaneus and I did not see a calcaneus fracture nor did the radiologist note 1. Patient was admitted with significant swelling and his Coumadin was put on hold. He has never had an INR during this hospitalization and I will order daily INRs to start with today. Swelling usually takes approximately 2 weeks to sufficiently resolved to the point it is safe to proceed with surgery. I am going to plan on scheduling his surgery for 12/16/2023. He has a history of a small chronic lacunar stroke seen on prior CT scan. I do not know of a history of an embolic stroke from his atrial fibrillation. The question would be whether to keep him off the Coumadin until surgery and if that route were chosen, because of his morbid obesity and age, I would recommend DVT prophylaxis with Lovenox 40 mg subQ daily. The Lovenox would then be stopped 1 day before surgery. The other option would be to continue with his Coumadin, resuming it and then stopping it 5 days before surgery to make sure that his INR returns to normal for his surgery. DVT prophylaxis dosing of Lovenox 40 mg once daily could be started the day after his last dose of Coumadin for a little added protection and then stopped 1 day before surgery. I will defer that decision to the energy manager and his recommendation. The meantime he will require strict elevation and strict nonweightbearing on the right ankle. Physical therapy can work with him for transfers as long as he can maintain strict nonweightbearing status Subjective Subjective Date/Time Seen: 12/04/23 07:46 Objective Data Vital Signs Vital Signs: Vital Signs - 24 hr 12/03/23 08:00 12/03/23 09:29 12/03/23 14:00 Temperature 36.1 C L Pulse Rate 80 Respiratory Rate 18 Blood Pressure 137/63 Pulse Oximetry 96 98 Oxygen Delivery Room Air Room Air Fraction of Inspired Oxygen 21 12/03/23 20:37 12/03/23 20:00 12/03/23 22:30 Temperature 36.8 C Pulse Rate 72 72 72 Respiratory Rate 18 18 23 H Blood Pressure 123/51 L Pulse Oximetry 94 94 97 Oxygen Delivery Room Air Autopap Fraction of Inspired Oxygen 12/04/23 05:34 Temperature 36.4 C L Pulse Rate 65 Respiratory Rate 20 Blood Pressure 153/90 H Pulse Oximetry 94 Oxygen Delivery Fraction of Inspired Oxygen Intake/Output Intake/Output: Intake & Output 12/01/23 12/02/23 12/03/23 12/04/23 23:59 23:59 23:59 23:59 Intake Total 480 1790 480 Output Total 400 1900 1050 Balance 80 110 -903 Meds/Results Medications: Active Medications Generic Name Dose Route Start Last Admin Tra
--- NOTE | 2023-12-04 07:55 | P.PNIM_ITS ---
Progress Note: A&P Assessment and Plan (1) Closed trimalleolar fracture: Qualifiers: Encounter type: initial encounter Laterality: right Qualified Code(s): S82.851A - Displaced trimalleolar fracture of right lower leg, initial encounter for closed fracture Code(s): S82.853A - Displaced trimalleolar fracture of unspecified lower leg, initial encounter for closed fracture Status: Acute (2) CHF (congestive heart failure): Code(s): I50.9 - Heart failure, unspecified Status: Acute (3) Atrial fibrillation and flutter: Code(s): I48.91 - Unspecified atrial fibrillation; I48.92 - Unspecified atrial flutter Status: Acute (4) Diabetes: Qualifiers: Diabetes mellitus complication status: with hyperglycemia Diabetes mellitus technician terminal and repeater insulin use: without senior living use Diabetes mellitus type: type 2 Qualified Code(s): E11.65 - Type 2 diabetes mellitus with hyperglycemia Code(s): E11.9 - Type 2 diabetes mellitus without complications Status: Acute (5) BENNY on CPAP: Code(s): G47.33 - Obstructive sleep apnea (adult) (pediatric); Z99.89 - Dependence on other enabling machines and devices Status: Acute (6) Obesity: Code(s): E66.9 - Obesity, unspecified Status: Acute Plan Closed trimalleolar fracture * Orthopedics recommending splint and non-weight bearing status. Will need surgical intervention once the swelling has decreased. * Surgery planned for 12/15 * splint placed in the ED * PT/OT consult for placement--may need group home short stay until surgery can be completed * NWB to right foot * Tylenol, ibuprofen, norco, morphine for pain per scale * Elevate and ICE RLE * Will need to be off Anticoagulation prior to surgery * cardiology consulted for cardiac clearance * Echo pending * Lovenox DVT prophylaxis pending Cardiology recommendation Chronic diastolic heart failure with reserved EF * Stable * cardiology consulted * Resumed PO Lasix * previous echocardiogram results 2021: EF of 50-55%, abnormal diastolic dysfunction, a-fib, RV systolic function moderately reduced, left and right atrial chambers severely enlarged. * echocardiogram pending * EKG: AFIB AFIB/AFLUTTER * EKG AFIB controlled * Coumadin on hold for surgery but surgery is not until 12/15 * ECHO pending * Cardiology consulted for clearance and recommendations on anticoagulation prior to surgery Diabetes * Accu-Cheks a.c. HS * sliding scale insulin * hold oral diabetic medications * resume patient's home long-acting * Diabetic diet * consult to dietitian * encourage lifestyle modifications and weight loss * Optimize Sarkis inhibitors and statins. * Watch for hypoglycemia/hypoglycemic protocol ordered Obesity * encourage increased on physical activity and lifestyle modifications * encourage outpatient weight loss clinic * BMI . * Diet exercise counseling done. * consult to dietitian HX BENNY: resumed CPAP Code status: Full Code DVT prophylaxis: Lovenox Stress ulcer prophylaxis: Protonix 40 daily PT/OT notes: non-weight bearing Disposition: Patient admitted to the medical unit for RT ankle fracture with non-weight bearing status. Surgery will not be scheduled until 12/15 to allow for swelling to improve. CC currently working on short stay to [facility]/SNF prior to surgery. Time Spent With Patient Time with patient: 15 - 25 minutes Subjective Date/time seen: 12/04/23 07:
--- NOTE | 2023-12-04 07:55 | PM.IMPN ---
Progress Note: A&P Assessment and Plan (1) Closed trimalleolar fracture: Qualifiers: Encounter type: initial encounter Laterality: right Qualified Code(s): S82.851A - Displaced trimalleolar fracture of right lower leg, initial encounter for closed fracture Code(s): S82.853A - Displaced trimalleolar fracture of unspecified lower leg, initial encounter for closed fracture Status: Acute (2) CHF (congestive heart failure): Code(s): I50.9 - Heart failure, unspecified Status: Acute (3) Atrial fibrillation and flutter: Code(s): I48.91 - Unspecified atrial fibrillation; I48.92 - Unspecified atrial flutter Status: Acute (4) Diabetes: Qualifiers: Diabetes mellitus complication status: with hyperglycemia 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 Will need surgical intervention once the swelling has decreased. Surgery planned for 12/15 splint placed in the ED PT/OT consult for placement--may need long term short stay until surgery can be completed NWB to right foot Tylenol, ibuprofen, norco, morphine for pain per scale Elevate and ICE RLE Will need to be off Anticoagulation prior to surgery cardiology consulted for cardiac clearance Echo pending Lovenox DVT prophylaxis pending Cardiology recommendation Chronic diastolic heart failure with reserved EF Stable cardiology consulted Resumed PO Lasix previous echocardiogram results 2021: EF of 50-55%, abnormal diastolic dysfunction, a-fib, RV systolic function moderately reduced, left and right atrial chambers severely enlarged. echocardiogram pending EKG: AFIB AFIB/AFLUTTER EKG AFIB controlled Coumadin on hold for surgery but surgery is not until 12/15 ECHO pending Cardiology consulted for clearance and recommendations on anticoagulation prior to surgery Diabetes Accu-Cheks a.c. HS sliding scale insulin hold oral diabetic medications resume patient's home long-acting Diabetic diet consult to dietitian encourage lifestyle modifications and weight loss Optimize Sarkis inhibitors and statins. Watch for hypoglycemia/hypoglycemic protocol ordered Obesity encourage increased on physical activity and lifestyle modifications encourage outpatient weight loss clinic BMI . Diet exercise counseling done. consult to dietitian HX BENNY: resumed CPAP Code status: Full Code DVT prophylaxis: Lovenox Stress ulcer prophylaxis: Protonix 40 daily PT/OT notes: non-weight bearing Disposition: Patient admitted to the medical unit for RT ankle fracture with non-weight bearing status. Surgery will not be scheduled until 12/15 to allow for swelling to improve. CC currently working on short stay to [facility]/SNF prior to surgery. Time Spent With Patient Time with patient: 15 - 25 minutes Subjective Date/time seen: 12/04/23 07:55 Interval history: 12/02/23: This is a pleasant 78-year-old gentleman with a past medical history significant for arthritis, prostate cancer, atrial fibrillation on Coumadin, diabetes on Lantus, hypertension, and stroke. The patient reported to the emergency room after sustaining a fall yesterday. He provides the following history. He states he was coming up the stairs from the basement when he tripped on the last step causing him to fall and injure his right ankle. He was able to walk on his vinh
[2023-12-04 08:15] LABS: Glucose Point of Care 181 mg/dl (65-105)
[2023-12-04 08:35] LABS: INR 1.7; Prothrombin Time 20.2 Seconds (11.1-14.7)
[2023-12-04] MEDS: DOCUSATE SODIUM 100 MG CAPSULE PO ×2 (09:30→17:21)
[2023-12-04] MEDS: IRBESARTAN 150 MG TABLET 300 MG PO (09:31)
[2023-12-04] MEDS: EMPAGLIFLOZIN 25 MG TABLET BY MOUTH (09:31)
[2023-12-04] MEDS: FUROSEMIDE 40 MG TABLET BY MOUTH (09:31)
[2023-12-04] MEDS: allopurinoL 300 MG TABLET PO (09:31)
[2023-12-04] MEDS: PANTOPRAZOLE 40 MG TABLET PO (09:31)
[2023-12-04] MEDS: SIMVASTATIN 10 MG TABLET PO (09:31)
[2023-12-04] MEDS: polyethylene glycoL 3350 17 GM POWD.PACK PO (09:33)
[2023-12-04] MEDS: ENOXAPARIN 40 MG/0.4 ML SYRINGE SUB-Q (09:33)
--- NOTE | 2023-12-04 12:03 | PM.CNCAR ---
Assessment and Plan Assessment and plan (1) Preop cardiovascular exam: Code(s): Z01.810 - Encounter for preprocedural cardiovascular examination Status: Acute Assessment and Plan: He is at low cardiac risk and he may proceed to noncardiac surgery without further cardiac workup. He has been holding Warfarin for a couple of days and INR today is 1.7. On Lovenox 40 mg daily for DVT prophylaxis. I would rather start him on Eliquis 5 mg BID until 2 days prior to scheduled surgery and resume a day after surgery if OK with surgeon. Stop Lovenox. (2) Atrial fibrillation: Qualifiers: Atrial fibrillation type: paroxysmal Qualified Code(s): I48.0 - Paroxysmal atrial fibrillation Code(s): I48.91 - Unspecified atrial fibrillation Status: Acute Assessment and Plan: Asymptomatic. Rate is normal. [id number] which is high risk for cardioembolism off anticoagulation. Was on Warfarin and was getting INR regularly and being followed by PCP for it. (3) Essential hypertension: Code(s): I10 - Essential (primary) hypertension Status: Acute Assessment and Plan: Stable. (4) Dyslipidemia: Code(s): E78.5 - Hyperlipidemia, unspecified Status: Acute Assessment and Plan: On Simvastatin. History of Present Illness History of Present Illness Consult date/time: 12/04/23 12:03 Reason For Visit: Closed Trimalleolar Frac of the R Ankle/R Calcanea Narrative: Patient is a 78 yr old man who is my regular cardiology patient presents to hospital for fractured ankle. He has a history of atrial fibrillation ([id number] at least 4. On Coumadin and rate control. Asymptomatic. INR being followed by PCP.), hypertension, DM, dyslipidemia, CVA (Had a total of 5 strokes with slurred speech and weakness, resolved. Unknown etiology.), PAD, BENNY intolerant of CPAP. States he was walking up from basement, made it to top step and twisted his ankle and fell. He has fractured right ankle needing surgery. He has GIBBS at minimal distance and edema of both legs are improving with lasix. Denies chest pain, sob, orthopnea, palpitations. Cardiovascular Procedures Head Of Stock:: 12/22/[address] Garcia: Ectatic coronaries with sluggish flow but no focal stenosis. Echo/MUGA:: 11/27/21 Echo: EF 50-55%, diastolic dysfunction (E/e' 11), mild RVE and mod hypokinesis, severe biatrial enlargement, mild MR, trace TR, RVSP 64 mmHg, small pericardial effusion. Echo (EF 60-65%, mod LVE, mod LVH, diastolic dysfunction (E/e' 12), atrial fib, mild LAE, mild-mod MR, RVSP 50 mmHg, trace PI, trace pericardial effusion.) - 03/03/2019 Electrophysiology:: 11/17/21 EKG: Atrial fibrillation at 44 bpm, PVC, PRWP, consider anterior infarct, low voltage in diffuse leads, borderline ST-T wave in diffuse leads. 10/19/20 EKG: Atrial fibrillation at 60, anteroseptal infarct, inferior infarct, age indeterminate. EKG (Atrial fibrillation with HR 59 bpm, low voltage, BRWP, borderline T wave in inferior leads.) - 01/27/2019 Stress Tests:: 11/24/21 Lexiscan myoview: Abnormal with mild ischemia of LCx distribution and fixed apical lateral and mid anterolateral defects; EF >70%. NADEEM (NADEEM right 0.97, TBI 0.51; NADEEM left 1.13, TBI 0.6.) - 03/06/2019 Venous Duplex (Negative for DVT of right leg.) - 01/27/2019 Sleep Study (Mod BENNY with desaturation to 86%.) - 10/16/2016 Review of Systems Review of Systems: All systems reviewed & are unremarkable except as noted in HPI and below Constitutional: Constitutional: Reports as per HPI, Denies chills and Denies fever(s) Cardiovascular: Cardiovascular: Reports as per HPI, Denies chest pain and Denies irregular heart rhythm Respiratory: Respiratory: Reports as per HPI and Denies dyspnea Gastrointestinal: Gastrointestinal: Reports as per HPI and Denies abdominal pain Genitourinary: Genitourinary: Reports as per HPI and Denies dysuria Musculoskeletal: Musculoskeletal: Reports as per HPI and Reports arthralg
--- NOTE | 2023-12-04 12:11 | PCPTNOTE ---
The patient treatment was not able to be completed due to patient receiving test at bedside. Will plan to continue treatment per plan of care.
[2023-12-04 12:58] LABS: Glucose Point of Care 175 mg/dl (65-105)
[2023-12-04 14:12] VITALS: BP 128/62; PULSE 72; RESP 20; TEMP 36.2; O2SAT 97
[2023-12-04] MEDS: ACETAMINOPHEN 325 MG TABLET 650 MG PO ×2 (14:37→20:54)
[2023-12-04 17:05] LABS: Glucose Point of Care 165 mg/dl (65-105)
--- NOTE | 2023-12-04 17:11 | PM.CNOR ---
Assessment and Plan Assessment and plan (1) Closed trimalleolar fracture: Qualifiers: Encounter type: initial encounter Laterality: right Qualified Code(s): S82.851A - Displaced trimalleolar fracture of right lower leg, initial encounter for closed fracture Code(s): S82.853A - Displaced trimalleolar fracture of unspecified lower leg, initial encounter for closed fracture Status: Acute Assessment and Plan: 78-year-old male who has a displaced unstable right trimalleolar ankle fracture. Again it is most likely going to take approximately 10 days for the swelling to go down so that it is safe to proceed with surgery. It is not going to be a safe situation for the patient to go home as he has minimal help. He is also morbidly obese and there is a risk that he is going to step on the right ankle at home since he does not have the help he needs there. Is going to be best for the patient to go to rehab facility so that he has proper care and has a safe environment to keep leg elevated to get the swelling down to proceed with surgery. Cardiology is seeing the patient today and has done an echo and has been cleared for surgery. He has been taken off his Coumadin and Eliquis 5 mg b.i.d. has been started. the Eliquis 48 hours prior to surgery and then resume it the day after surgery. Cardiology is in agreement with this plan. We will plan to do surgery on Saturday the to proceed with ORIF of the medial and lateral malleolus. Surgical procedures well as risks and complications were discussed in detail all questions were answered. I am going to order a vitamin-D 25 hydroxy as well as an hemoglobin A1c since he is diabetic. Care coordination has been consulted they will get the patient to a rehab facility. History of Present Illness HPI Consult date: 12/04/23 Chief complaint: Closed Trimalleolar Frac of the R Ankle/R Calcanea Narrative: 78-year-old male who is well known to myself who fell Saturday 3 days ago at home. He missed this footing and fell landing awkwardly on the right lower extremity. He had pain and swelling in the ankle. At he thought he only had sprained it and he walked on it throughout the day on Saturday and Saturday morning he continued pain that became more severe in the ankle and was brought to the emergency room by ambulance. X-rays in the ER demonstrate a displaced medial and lateral malleolar fracture of the right ankle. He had a CT scan done of the ankle which also showed some small fracturing of the posterior malleolus. Patient was placed into a posterior OCL splint. He was admitted due to the inability to care for himself at home due to the fact that he is strict nonweightbearing. Patient has been on Coumadin chronically for his AFib and Dr. Mann at spoke to the ER physician prior to patient being placed in a splint. Patient already had significant swelling in the foot and ankle. Typically these trimalleolar ankle fractures will swell quite a bit but also with the patient being on Coumadin this is going to increase the swelling unfortunately. felt that the safest course of action would be to allow the swelling to improve over the course of the next 10 days before proceeding with surgery. This is a displaced trimalleolar fracture and it will need to be fixed with ORIF of the medial and lateral malleolus. The small fracture to the posterior malleolus will be allowed to heal without surgical intervention. Patient has past medical history of AFib as well as type 2 diabetes. [facility] Past Medical History Medical History Arthritis Cancer prostate cancer Cardiac arrhythmia atrial fibrillation Diabetes Essential hypertension Myocardial infarction Right knee pain Stroke Testicular hypofunction Urinary symptom or sign Surgical History Surgical History History of cataract ex
[2023-12-04 19:18] LABS: Vitamin D 25 Hydroxy 47.1 ng/mL
[2023-12-04 20:00] VITALS: PULSE 72; RESP 20; O2SAT 97
[2023-12-04 20:33] LABS: Hemoglobin A1C 7.3 % (<5.7)
[2023-12-04 20:50] LABS: Glucose Point of Care 200 mg/dl (65-105)
[2023-12-04] MEDS: APIXABAN 5 MG TABLET PO (20:54)
[2023-12-04] MEDS: INSULIN GLARGINE (*BKC) 100 UNITS/ML 40 UNITS SUB-Q (20:55)
[2023-12-04 21:05] VITALS: BP 106/59; PULSE 60; RESP 20; TEMP 36.1; O2SAT 98
[2023-12-04] MEDS: TOLNAFTATE 1% POWDER 45 GM BTL 1 APPLIC TOPICAL (21:45)
[2023-12-05 06:00] VITALS: BP 112/67; PULSE 77; RESP 18; TEMP 35.9; O2SAT 97
[2023-12-05 06:13] LABS: Hematocrit 40.7 % (42.0-52.0); Hemoglobin 12.7 g/dL (14.0-18.0); Immature Platelet Fraction Pct 3.9 % (0.9-11.2); Mean Corpuscular HGB Conc 31.2 g/dl (32-36); Mean Corpuscular Volume 92.9 fl (80-100); Mean Platelet Volume 10.4 fl (7.4-10.4); Platelet Count Result 130 k/mm3 (150-375); Red Blood Count 4.38 M/mm3 (4.6-6.20); Red Cell Distribution Width 15.6 % (11.5-14.5); White Blood Count 9.1 K/mm3 (4.5-10.0)
[2023-12-05 06:21] LABS: Alanine Aminotransferase 11 U/L (6-50); Albumin Level 3.6 g/dL (3.5-5.1); Alkaline Phosphatase 90 U/L (38-126); Anion Gap 6 mmol/L (4-12); Aspartate Amino Transferase 18 U/L (17-59); Bilirubin,Total 1.4 mg/dL (0.2-1.3); Blood Urea Nitrogen 26 mg/dL (9-20); Calcium 8.5 mg/dL (8.4-10.2); Carbon Dioxide 31 mmol/L (22-30); Chloride 102 mmol/L (98-107); Estimated CRCL calculation 68 ml/min; Estimated Glomerular Filt Rate > 60; Glucose 148 mg/dL (65-110); Potassium 4.1 mmol/L (3.4-5.0); Sodium 139 mmol/L (137-145)
[2023-12-05 06:22] LABS: INR 1.6; Prothrombin Time 19.7 Seconds (11.1-14.7)
--- NOTE | 2023-12-05 07:38 | PM.PNCARD ---
Progress Note: A&P Assessment and Plan (1) Preop cardiovascular exam: Code(s): Z01.810 - Encounter for preprocedural cardiovascular examination Status: Acute Assessment and Plan: He is at low cardiac risk and he may proceed to noncardiac surgery without further cardiac workup. He has been holding Warfarin for a couple of days and INR was 1.7. On Lovenox 40 mg daily for DVT prophylaxis. Started 12/04/23 on Eliquis 5 mg BID until 2 days prior to scheduled surgery and resume a day after surgery if OK with surgeon. Stopped Lovenox. Will sign off. Please call with any questions. He has regular f/u with me already. (2) Atrial fibrillation: Qualifiers: Atrial fibrillation type: paroxysmal Qualified Code(s): I48.0 - Paroxysmal atrial fibrillation Code(s): I48.91 - Unspecified atrial fibrillation Status: Acute Assessment and Plan: Asymptomatic. Rate is normal. [id number] which is high risk for cardioembolism off anticoagulation. Was on Warfarin and was getting INR regularly and being followed by PCP for it. (3) Essential hypertension: Code(s): I10 - Essential (primary) hypertension Status: Acute Assessment and Plan: Stable. (4) Dyslipidemia: Code(s): E78.5 - Hyperlipidemia, unspecified Status: Acute Assessment and Plan: On Simvastatin. Subjective Date/time seen: 12/05/23 07:38 Interval history: Denies chest pain or sob. Exam Const: General: cooperative, healthy appearing, comfortable and obese Nutritional Appearance: obese Orientation/consciousness: oriented to person, oriented to place and oriented to time Resp: Auscultation: clear to auscultation bilaterally, no crackles, no rales, no rhonchi and no wheezes Cardio: Rate: regular rate Rhythm: abnormal rhythm Heart sounds: no murmurs Peripheral pulses: dorsalis pedis present Neuro: General: oriented to person, oriented to place and oriented to time Extrem: Left lower extremity: no edema Other: Right leg wrapped Objective Data Vital Signs Vital Signs: Vital Signs - 24 hr 12/04/23 08:00 12/04/23 11:32 12/04/23 14:12 Temperature 97.2 F L Pulse Rate 72 Respiratory Rate 20 Blood Pressure 128/62 Pulse Oximetry 97 Oxygen Delivery Room Air Room Air Fraction of Inspired Oxygen 12/04/23 20:00 12/04/23 21:05 12/05/23 06:00 Temperature 96.9 F L 96.7 F L Pulse Rate 72 60 77 Respiratory Rate 20 20 18 Blood Pressure 106/59 L 112/67 Pulse Oximetry 97 98 97 Oxygen Delivery Room Air Fraction of Inspired Oxygen 21 Intake/Output Intake/Output: Intake & Output 12/02/23 12/03/23 12/04/23 12/05/23 23:59 23:59 23:59 23:59 Intake Total 480 1790 1500 480 Output Total 400 1900 1650 675 Balance 80 -110 -150 -195 Meds/Results Medications: Active Medications Generic Name Dose Route Start Last Admin Trade Name Freq PRN Reason Stop Dose Admin Acetaminophen 650 mg 12/02/23 17:19 12/04/23 20:54 Acetaminophen 325 Mg Tablet PO 650 mg Q4H PRN Administration Mild Pain (1-3) or Fever Hydrocodone Bitart/Acetaminophen 1 tab 12/02/23 17:19 Hydrocodone/Acetaminophen (*Crx) 5-325 Mg Tablet PO Q4H PRN Moderate Pain (4-6) Allopurinol 300 mg 12/03/23 09:00 12/04/23 09:31 Allopurinol 300 Mg Tablet PO 300 mg DAILY RHODA Administration Apixaban 5 mg 12/04/23 21:00 12/04/23 20:54 Apixaban 5 Mg Tablet PO 12/13/23 21:00 5 mg Q12HR RHODA Administration Dextrose 12.5 gm 12/02/23 17:24 Dextrose 50% 25 Gm/50 Ml Syringe IV PUSH PRN PRN Hypoglycemia Protocol Docusate Sodium 100 mg 12/03/23 09:00 12/04/23 17:21 Docusate Sodium 100 Mg Capsule PO 100 mg BID RHODA Administration Empagliflozin 25 mg 12/03/23 09:00 12/04/23 09:31 Empagliflozin 25 Mg Tablet BY MOUTH 25 mg DAILY RHODA Administration Furosemide 40 mg 12/03/23 09:00 12/04/23 09:31 Furosemide 40 Mg Tablet B
--- NOTE | 2023-12-05 08:12 | P.PNIM_ITS ---
Progress Note: A&P Assessment and Plan (1) Closed trimalleolar fracture: Qualifiers: Encounter type: initial encounter Laterality: right Qualified Code(s): S82.851A - Displaced trimalleolar fracture of right lower leg, initial encounter for closed fracture Code(s): S82.853A - Displaced trimalleolar fracture of unspecified lower leg, initial encounter for closed fracture Status: Acute (2) CHF (congestive heart failure): Code(s): I50.9 - Heart failure, unspecified Status: Acute (3) Atrial fibrillation and flutter: Code(s): I48.91 - Unspecified atrial fibrillation; I48.92 - Unspecified atrial flutter Status: Acute (4) Diabetes: Qualifiers: Diabetes mellitus complication status: with hyperglycemia 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 Will need surgical intervention once the swelling has decreased. * Surgery planned for 12/15 * splint placed in the ED * PT/OT consult for placement--may need [facility] short stay until surgery can be completed * NWB to right foot * Tylenol, ibuprofen, norco, morphine for pain per scale * Elevate and ICE RLE * Will need to be off Anticoagulation prior to surgery * cardiology consulted for cardiac clearance * Echo pending * Lovenox DVT prophylaxis pending Cardiology recommendation Chronic diastolic heart failure with reserved EF * Stable * cardiology consulted * Resumed PO Lasix * previous echocardiogram results 2021: EF of 50-55%, abnormal diastolic dysfunction, a-fib, RV systolic function moderately reduced, left and right atrial chambers severely enlarged. * echocardiogram pending * EKG: AFIB AFIB/AFLUTTER * EKG AFIB controlled * Coumadin on hold for surgery but surgery is not until 12/15 * ECHO pending * Cardiology consulted for clearance and recommendations on anticoagulation prior to surgery Diabetes * Accu-Cheks a.c. HS * sliding scale insulin * hold oral diabetic medications * resume patient's home long-acting * Diabetic diet * consult to dietitian * encourage lifestyle modifications and weight loss * Optimize Sarkis inhibitors and statins. * Watch for hypoglycemia/hypoglycemic protocol ordered Obesity * encourage increased on physical activity and lifestyle modifications * encourage outpatient weight loss clinic * BMI . * Diet exercise counseling done. * consult to dietitian HX BENNY: resumed CPAP Code status: Full Code DVT prophylaxis: Eliquis Stress ulcer prophylaxis: Protonix 40 daily PT/OT notes: non-weight bearing Disposition: Patient admitted to the medical unit for RT ankle fracture with non-weight bearing status. Surgery will not be scheduled until 12/15 to allow for swelling to improve. CC currently working on short stay to [facility]NF prior to surgery. Time Spent With Patient Time with patient: 15 - 25 minutes Subjective Date/time seen: 12/05/23 08:
--- NOTE | 2023-12-05 08:12 | PM.IMPN ---
Progress Note: A&P Assessment and Plan (1) Closed trimalleolar fracture: Qualifiers: Encounter type: initial encounter Laterality: right Qualified Code(s): S82.851A - Displaced trimalleolar fracture of right lower leg, initial encounter for closed fracture Code(s): S82.853A - Displaced trimalleolar fracture of unspecified lower leg, initial encounter for closed fracture Status: Acute (2) CHF (congestive heart failure): Code(s): I50.9 - Heart failure, unspecified Status: Acute (3) Atrial fibrillation and flutter: Code(s): I48.91 - Unspecified atrial fibrillation; I48.92 - Unspecified atrial flutter Status: Acute (4) Diabetes: Qualifiers: Diabetes mellitus complication status: with hyperglycemia 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 Will need surgical intervention once the swelling has decreased. Surgery planned for 12/15 splint placed in the ED PT/OT consult for placement--may need group home short stay until surgery can be completed NWB to right foot Tylenol, ibuprofen, norco, morphine for pain per scale Elevate and ICE RLE Will need to be off Anticoagulation prior to surgery cardiology consulted for cardiac clearance Echo pending Lovenox DVT prophylaxis pending Cardiology recommendation Chronic diastolic heart failure with reserved EF Stable cardiology consulted Resumed PO Lasix previous echocardiogram results 2021: EF of 50-55%, abnormal diastolic dysfunction, a-fib, RV systolic function moderately reduced, left and right atrial chambers severely enlarged. echocardiogram pending EKG: AFIB AFIB/AFLUTTER EKG AFIB controlled Coumadin on hold for surgery but surgery is not until 12/15 ECHO pending Cardiology consulted for clearance and recommendations on anticoagulation prior to surgery Diabetes Accu-Cheks a.c. HS sliding scale insulin hold oral diabetic medications resume patient's home long-acting Diabetic diet consult to dietitian encourage lifestyle modifications and weight loss Optimize Sarkis inhibitors and statins. Watch for hypoglycemia/hypoglycemic protocol ordered Obesity encourage increased on physical activity and lifestyle modifications encourage outpatient weight loss clinic BMI . Diet exercise counseling done. consult to dietitian HX BENNY: resumed CPAP Code status: Full Code DVT prophylaxis: Eliquis Stress ulcer prophylaxis: Protonix 40 daily PT/OT notes: non-weight bearing Disposition: Patient admitted to the medical unit for RT ankle fracture with non-weight bearing status. Surgery will not be scheduled until 12/15 to allow for swelling to improve. CC currently working on short stay to [facility]NF prior to surgery. Time Spent With Patient Time with patient: 15 - 25 minutes Subjective Date/time seen: 12/05/23 08:12 Interval history: 12/02/23: This is a pleasant 78-year-old gentleman with a past medical history significant for arthritis, prostate cancer, atrial fibrillation on Coumadin, diabetes on Lantus, hypertension, and stroke. The patient reported to the emergency room after sustaining a fall yesterday. He provides the following history. He states he was coming up the stairs from the basement when he tripped on the last step causing him to fall and injure his right ankle. He was able to walk on his vinh
[2023-12-05 08:28] LABS: Glucose Point of Care 189 mg/dl (65-105)
[2023-12-05] MEDS: SIMVASTATIN 10 MG TABLET PO (08:41)
[2023-12-05] MEDS: PANTOPRAZOLE 40 MG TABLET PO (08:41)
[2023-12-05] MEDS: TOLNAFTATE 1% POWDER 45 GM BTL 1 APPLIC TOPICAL (08:42)
[2023-12-05] MEDS: TAMSULOSIN HCL 0.4 MG CAPSULE PO (08:42)
[2023-12-05] MEDS: polyethylene glycoL 3350 17 GM POWD.PACK PO (08:42)
[2023-12-05] MEDS: IRBESARTAN 150 MG TABLET 300 MG PO (08:42)
[2023-12-05] MEDS: allopurinoL 300 MG TABLET PO (08:42)
[2023-12-05] MEDS: APIXABAN 5 MG TABLET PO (08:42)
[2023-12-05] MEDS: EMPAGLIFLOZIN 25 MG TABLET BY MOUTH (08:42)
[2023-12-05] MEDS: FUROSEMIDE 40 MG TABLET BY MOUTH (08:42)
[2023-12-05] MEDS: DOCUSATE SODIUM 100 MG CAPSULE PO (08:42)
[2023-12-05] MEDS: HYDROcodone/acetaminophen (*CRX) 5-325 MG TABLET 1 TAB PO (08:45)
[2023-12-05 11:49] LABS: Glucose Point of Care 197 mg/dl (65-105)
--- NOTE | 2023-12-05 12:47 | P.DS_ITS ---
DS: Admitting Diagnosis Discharge Date 12/05/2023 Admitting Diagnosis Closed trimalleolar fracture: DS: Discharge Diagnosis Discharge Diagnosis (1) Closed trimalleolar fracture: Qualifiers: Encounter type: initial encounter Laterality: right Qualified Code(s): S82.851A - Displaced trimalleolar fracture of right lower leg, initial encounter for closed fracture Code(s): S82.853A - Displaced trimalleolar fracture of unspecified lower leg, initial encounter for closed fracture Status: Acute (2) CHF (congestive heart failure): Code(s): I50.9 - Heart failure, unspecified Status: Acute (3) Atrial fibrillation and flutter: Code(s): I48.91 - Unspecified atrial fibrillation; I48.92 - Unspecified atrial flutter Status: Acute (4) Diabetes: Qualifiers: Diabetes mellitus complication status: with hyperglycemia Diabetes mellitus senior living insulin use: without senior living use Diabetes mellitus type: type 2 Qualified Code(s): E11.65 - Type 2 diabetes mellitus with hyperglycemia Code(s): E11.9 - Type 2 diabetes mellitus without complications Status: Acute (5) BENNY on CPAP: Code(s): G47.33 - Obstructive sleep apnea (adult) (pediatric); Z99.89 - Dependence on other enabling machines and devices Status: Acute (6) Obesity: Code(s): E66.9 - Obesity, unspecified Status: Acute Plan Plan Closed trimalleolar fracture * Orthopedics recommending splint and non-weight bearing status. Will need surgical intervention once the swelling has decreased. * Surgery planned for 12/15 * splint placed in the ED * PT/OT consult for placement--may need group home short stay until surgery can be completed * NWB to right foot * Tylenol, ibuprofen, norco, morphine for pain per scale * Elevate and ICE RLE * Will need to be off Anticoagulation prior to surgery * cardiology consulted for cardiac clearance * Echo pending * Lovenox DVT prophylaxis pending Cardiology recommendation Chronic diastolic heart failure with reserved EF * Stable * cardiology consulted * Resumed PO Lasix * previous echocardiogram results 2021: EF of 50-55%, abnormal diastolic dysfunction, a-fib, RV systolic function moderately reduced, left and right atrial chambers severely enlarged. * echocardiogram pending * EKG: AFIB AFIB/AFLUTTER * EKG AFIB controlled * Coumadin on hold for surgery but surgery is not until 12/15 * ECHO pending * Cardiology consulted for clearance and recommendations on anticoagulation prior to surgery Diabetes * Accu-Cheks a.c. HS * sliding scale insulin * hold oral diabetic medications * resume patient's home long-acting * Diabetic diet * consult to dietitian * encourage lifestyle modifications and weight loss * Optimize Sarkis inhibitors and statins. * Watch for hypoglycemia/hypoglycemic protocol ordered Obesity * encourage increased on physical activity and lifestyle modifications * encourage outpatient weight loss clinic * BMI . * Diet exercise counseling done. * consult to dietitian HX BENNY: resumed CPAP Code status: Full Code DVT prophylaxis: Lovenox Stress ulcer prophylaxis: Protonix 40 daily PT/OT notes: non-weight bearing Disposition: Patient admitted to the medical unit for RT ankle fracture with non-weight bearing status. Surgery will not be scheduled until 12/15 to allow for swelling to improve. CC currently working on short stay to [facility]NF prior to surgery. DS: Summary
--- NOTE | 2023-12-05 12:47 | PM.DS ---
DS: Admitting Diagnosis Discharge Date 12/05/2023 Admitting Diagnosis Closed trimalleolar fracture: DS: Discharge Diagnosis Discharge Diagnosis (1) Closed trimalleolar fracture: Qualifiers: Encounter type: initial encounter Laterality: right Qualified Code(s): S82.851A - Displaced trimalleolar fracture of right lower leg, initial encounter for closed fracture Code(s): S82.853A - Displaced trimalleolar fracture of unspecified lower leg, initial encounter for closed fracture Status: Acute (2) CHF (congestive heart failure): Code(s): I50.9 - Heart failure, unspecified Status: Acute (3) Atrial fibrillation and flutter: Code(s): I48.91 - Unspecified atrial fibrillation; I48.92 - Unspecified atrial flutter Status: Acute (4) Diabetes: Qualifiers: Diabetes mellitus complication status: with hyperglycemia Diabetes mellitus jail insulin use: without jail use Diabetes mellitus type: type 2 Qualified Code(s): E11.65 - Type 2 diabetes mellitus with hyperglycemia Code(s): E11.9 - Type 2 diabetes mellitus without complications Status: Acute (5) BENNY on CPAP: Code(s): G47.33 - Obstructive sleep apnea (adult) (pediatric); Z99.89 - Dependence on other enabling machines and devices Status: Acute (6) Obesity: Code(s): E66.9 - Obesity, unspecified Status: Acute Plan Plan Closed trimalleolar fracture Orthopedics recommending splint and non-weight bearing status. Will need surgical intervention once the swelling has decreased. Surgery planned for 12/15 splint placed in the ED PT/OT consult for placement--may need detention short stay until surgery can be completed NWB to right foot Tylenol, ibuprofen, norco, morphine for pain per scale Elevate and ICE RLE Will need to be off Anticoagulation prior to surgery cardiology consulted for cardiac clearance Echo pending Lovenox DVT prophylaxis pending Cardiology recommendation Chronic diastolic heart failure with reserved EF Stable cardiology consulted Resumed PO Lasix previous echocardiogram results 2021: EF of 50-55%, abnormal diastolic dysfunction, a-fib, RV systolic function moderately reduced, left and right atrial chambers severely enlarged. echocardiogram pending EKG: AFIB AFIB/AFLUTTER EKG AFIB controlled Coumadin on hold for surgery but surgery is not until 12/15 ECHO pending Cardiology consulted for clearance and recommendations on anticoagulation prior to surgery Diabetes Accu-[place]atherks aDarrylcDarryl HS sliding scale insulin hold oral diabetic medications resume patient's home long-acting Diabetic diet consult to dietitian encourage lifestyle modifications and weight loss Optimize Sarkis inhibitors and statins. Watch for hypoglycemia/hypoglycemic protocol ordered Obesity encourage increased on physical activity and lifestyle modifications encourage outpatient weight loss clinic BMI . Diet exercise counseling done. consult to dietitian HX BENNY: resumed CPAP Code status: Full Code DVT prophylaxis: Lovenox Stress ulcer prophylaxis: Protonix 40 daily PT/OT notes: non-weight bearing Disposition: Patient admitted to the medical unit for RT ankle fracture with non-weight bearing status. Surgery will not be scheduled until 12/15 to allow for swelling to improve. CC currently working on short stay to [facility] prior to surgery. DS: Summary Hospital Course Reason for hospitalization: Closed trimalleolar fracture: Hospital Course: Interval history: 12/02/23: This is a pleasant 78-year-old gentleman with a past medical history significant for arthritis, prostate cancer, atrial fibrillation on Coumadin, diabetes on Lantus, hypertension, and stroke. The patient reported to the emergency room after sustaining a fall yesterday. He provides the following history. He states he was coming up the stairs from the basement whe
[2023-12-05 13:26] LABS: SARS-CoV-2 RNA PCR Negative (Negative)
== END 2023-12-05 15:38 | DRG 563 ==
LOC: ANHED 15:24 → ANH3MED 16:04
PROVIDERS: Nurse Practitioner Acute Care; Physician Assistant Surgical; Admitting Provider Internal Medicine; Emergency Provider Nurse Practitioner Family; PCP Family Medicine; Visit Provider Nurse Practitioner Family
DX: S82.851A Displaced trimalleolar fracture of right lower leg, initial encounter for closed fracture (principal); I48.92 Unspecified atrial flutter; I50.32 Chronic diastolic (congestive) heart failure; S92.514A Nondisplaced fracture of proximal phalanx of right lesser toe(s), initial encounter for closed fracture; S92.044A Nondisplaced other fracture of tuberosity of right calcaneus, initial encounter for closed fracture; I11.0 Hypertensive heart disease with heart failure; I48.0 Paroxysmal atrial fibrillation; E11.65 Type 2 diabetes mellitus with hyperglycemia; W19.XXXA Unspecified fall, initial encounter; G47.33 Obstructive sleep apnea (adult) (pediatric); E78.5 Hyperlipidemia, unspecified; M19.90 Unspecified osteoarthritis, unspecified site; I73.9 Peripheral vascular disease, unspecified; E66.01 Morbid (severe) obesity due to excess calories; Z68.34 Body mass index [BMI] 34.0-34.9, adult; Z11.52 Encounter for screening for COVID-19; Z85.46 Personal history of malignant neoplasm of prostate; I25.2 Old myocardial infarction; Z86.73 Personal history of transient ischemic attack (TIA), and cerebral infarction without residual deficits; Z98.49 Cataract extraction status, unspecified eye; Z79.01 Long term (current) use of anticoagulants
CPT/HCPCS: 29515; 36415; 73610; 73630; 73700; 80053; 82306; 82948; 83036; 83735; 85025; 85027; 85055; 85610; 87635; 93005; 93306; 97110; 97161; 97166; 97530; 99285; A9270; J1650; J1815

== ENCOUNTER 2023-12-10 13:34 | Outpatient (CLI) | payer MEDICARE, SELFPAY | END 2023-12-10 13:35 | disposition home or self-care (01) | LOC: ANHSURGERY 13:39 | PROVIDERS: PCP Family Medicine; Visit Provider Orthopaedic Surgery | DX: Z01.818 Encounter for other preprocedural examination (principal); S82.891A Other fracture of right lower leg, initial encounter for closed fracture | CPT/HCPCS: 87081 ==

== ENCOUNTER 2023-12-17 13:47 | Observation (INO) | payer MEDICARE, SELFPAY ==
--- NOTE | 2023-12-09 11:52 | PC.NURSE ---
Report to the Outpatient Waiting Room, entrance under the green pavilion located off [facility], at time ___6:00 AM____ on date _12/16/23 . Planned Procedure Time: _7:30 AM . Time changes happen often and if your time is changed the preop area will call you the afternoon before. - You and your visitor will be asked to self-screen and do not enter if you have any COVID symptoms. - A mask is optional within the hospital at this time. Patients may have clear liquids (water, carbonated beverages, clear teas, apple juice) until 3 hours prior to surgery( 4:30 AM) with a maximum of 20 ounces. - No food from midnight until time of surgery - Infants may have breast milk until 4 hours before surgery, infant formula 6 hours prior to surgery. - Children will be allowed to drink immediately following surgery. If applicable, please bring a bottle or sippy cup to assist with drinking. Juice, water, soda, and popsicles are readily available. For infants on formula, please bring formula the day of surgery. Pacifiers are allowed. Take the following medications with a SIP of water the morning of surgery: _MAY TAKE HYDROCODONE IF NEEDED FOR PAIN DO NOT STOP ANY OF YOUR OTHER PRESCRIPTION MEDICATIONS PRIOR TO SURGERY ?EXCEPT THE FOLLOWING Medications to discontinue per physician ___HOLD ELIQUIS 2 DAYS PRE OP .PER DR WILD/DR MORA . LAST DOSE 12/13/23 Please no make-up, nail gibraltarian, hairspray, perfume, deodorant, or body powder the day of surgery. No jewelry (including any body piercings) or valuables the day of surgery, leave them at home. Please take a shower or bath the night before, or the morning of, surgery with an antibacterial soap. Wear comfortable, loose fitting clothing. Children are encouraged to wear pajamas. - Jewelry must be removed prior to entering the operating room. Rings and piercings that are not removed may be cut off. - The hospital will not accept responsibility for valuables. - Please leave all valuables, including medications, at home the day of surgery. If you are going home after surgery, a licensed special needs bus driver must drive you home. - NO public transportation without another adult if you receive anesthesia. - We recommend that an adult stay with you for 24 hours following discharge. - We also recommend that you do not drive, make important decision, drink alcoholic beverages, or take any drugs that were not prescribed by your health care provider for at least 24 hours after your discharge time. Follow any additional instructions given to you from your surgeon. If you or anyone in your household have experienced Covid symptoms in the past week, please notify your surgeon or the nurse liaison at the phone number below for possible testing. Telephone instructions given to _FAXED TO [facility] ATTEN: RODRIGO SHANKAR and asked if any additional questions and then verbalized understanding. Patient advised to call surgeon office or pre surgery nurse liaison [phone] if any additional questions.
[2023-12-09 12:02] VITALS: BMI 40.4
--- NOTE | 2023-12-13 11:24 | PM.IMHP ---
H&P: HPI History of Present Illness Date/Time: 12/13/23 11:24 Chief Complaint: Right trimalleolar ankle fracture Narrative: 78-year-old male who fell on 12/01 at home. He had immediate pain in the ankle is brought to the emergency room here at [facility] x-ray showed displaced right trimalleolar ankle fracture. He was placed into a posterior OCL splint. He was admitted. Patient was on Coumadin chronically due to AFib and had significant amount of swelling in the ankle and a surgery for the ankle had to be delayed to allow swelling to decrease. Patient has been nonweightbearing since 12/01. He has been in a rehab facility keeping the leg elevated to decrease the swelling. When patient was admitted to the hospital he had echocardiogram done he is also seen by Dr. Berger the wellness ambassador. He was switched to Eliquis off of his Coumadin and cardiology plans on keeping him on Eliquis chronically after surgery as well. His Eliquis was stopped on Saturday night. Patient presents today for ORIF of the right ankle today. Review of Systems Review of Systems: All systems reviewed & are unremarkable except as noted in HPI and below PMFSH Past Medical History Medical History Arthritis Cancer prostate cancer Cardiac arrhythmia atrial fibrillation Diabetes Essential hypertension Myocardial infarction Right knee pain Stroke Testicular hypofunction Urinary symptom or sign Surgical History Surgical History History of cataract extraction History of tonsillectomy Family History Family History Mother Hypertension Family history of cardiovascular disease Cerebrovascular accident Father Hypertension Cerebrovascular accident Sibling Family history of cardiovascular disease Social History Social History Smoking status: Never smoker Second hand tobacco smoke exposure: No Alcohol intake: never Substance use: never Substance use type: does not use Do You Feel Safe in your Home?: Yes Lack of Transportation: No Lack of Food: Never True Current Housing: I Have Housing Concerned About Future Housing: No Difficulty Paying Gas/Electric Bills: No Difficulty Paying for Meds: No Currently Unemployed: No Education: Master's Degree or Higher Difficulty w/ Childcare or Family Care: No Living arrangements: retirement Occupation/Education: retired Gender identity (if verbalized by the patient): Male Spiritual care concerns: No Agree to blood products: Yes Meds Home Medications and Allergies Home Medications Medication Instructions Recorded Confirmed Type blood sugar diagnostic #100 ea 03/01/21 12/02/23 Rx furosemide 40 mg tablet See Rx Instructions .Route 07/10/22 12/09/23 Rx .COMPLEX #180 tabs blood sugar diagnostic (OneTouch #100 ea 04/10/23 12/02/23 Rx Ultra Test strips) glipizide 10 mg tablet, extended See Rx Instructions .Route 06/26/23 12/09/23 Rx release 24 hr .COMPLEX #90 tabs lancets 30 gauge (OneTouch Delica See Rx Instructions .Route 07/12/23 12/09/23 Rx Plus Lancet) .COMPLEX #100 ea empagliflozin 25 mg tablet See Rx Instructions .Route 08/28/23 12/09/23 Rx (Jardiance) .COMPLEX #90 tabs simvastatin 10 mg tablet See Rx Instructions .Route 08/28/23 12/09/23 Rx .COMPLEX #90 tabs allopurinol 300 mg tablet 300 mg PO DAILY #90 tabs 10/15/23 12/09/23 Rx irbesartan 300 mg tablet See Rx Instructions .Route 10/15/23 12/09/23 Rx .COMPLEX #90 tabs meclizine 25 mg tablet 25 mg PO BID PRN dizziness #20 tabs 10/15/23 12/09/23 Rx pen needle, diabetic 31 gauge x #100 ea 10/15/23 12/02/23 Rx 5/16 (Advocate Pen Needle) tamsulosin 0.4 mg capsule 0.4 mg PO QHS #30 caps 10/28/23 12/09/23 Rx insulin glargine 100 unit/mL (3 40 unit subcut HS 12/02/2312/08
[2023-12-16] VITALS (18 sets, daily range): BP systolic 98–136; BP diastolic 45–69; PULSE 62–81; RESP 14–20; TEMP 35.6–36.9; O2SAT 94–99
[2023-12-16] MEDS: LACTATED RINGERS 1,000 ML 30 ML IV CONT ×2 (06:45→10:44)
[2023-12-16] MEDS: VANCOMYCIN 2,000 MG/NS 500 ML BAG 250 MG IVPB (06:50)
[2023-12-16] MEDS: KETOROLAC 15 MG/ML VIAL (*BKC) IV PUSH (06:54)
[2023-12-16] MEDS: ACETAMINOPHEN 500 MG TABLET 1000 MG PO (06:55)
[2023-12-16 07:04] LABS: Glucose Point of Care 140 mg/dl (65-105)
--- NOTE | 2023-12-16 07:04 | WPDANESEPPF ---
Anes - Initial Pre Proc Eval Procedure: Operation Date: 12/16/23 07:30 Proposed Procedures p Open Reduction Internal Fixation Right Ankle Trimalleolar Fracture, Possible Open Reduction Internal Fixation Medial Malleolar Fracture - Dennis Mann MD Date/Time: 12/16/23 07:04 Surgeon: Dennis Mann MD Pre Op Diagnosis: Rt Trimalleolar Ankle Fx Patient Data Age: 78 Gender: M Height: 1.83 m Weight: 133.4 kg Allergies Allergy/AdvReac Type Severity Reaction Status Date / Time No Known Allergies Allergy Verified 12/16/23 06:36 Home Medications Medication Instructions Recorded Confirmed Type blood sugar diagnostic #100 ea 03/01/21 12/02/23 Rx furosemide 40 mg tablet See Rx Instructions .Route 07/10/22 12/09/23 Rx .COMPLEX #180 tabs blood sugar diagnostic (OneTouch #100 ea 04/10/23 12/02/23 Rx Ultra Test strips) glipizide 10 mg tablet, extended See Rx Instructions .Route 06/26/23 12/09/23 Rx release 24 hr .COMPLEX #90 tabs lancets 30 gauge (OneTouch Delica See Rx Instructions .Route 07/12/23 12/09/23 Rx Plus Lancet) .COMPLEX #100 ea empagliflozin 25 mg tablet See Rx Instructions .Route 08/28/23 12/09/23 Rx (Jardiance) .COMPLEX #90 tabs simvastatin 10 mg tablet See Rx Instructions .Route 08/28/23 12/09/23 Rx .COMPLEX #90 tabs allopurinol 300 mg tablet 300 mg PO DAILY #90 tabs 10/15/23 12/09/23 Rx irbesartan 300 mg tablet See Rx Instructions .Route 10/15/23 12/09/23 Rx .COMPLEX #90 tabs meclizine 25 mg tablet 25 mg PO BID PRN dizziness #20 tabs 10/15/23 12/09/23 Rx pen needle, diabetic 31 gauge x #100 ea 10/15/23 12/02/23 Rx 5/16 (Advocate Pen Needle) tamsulosin 0.4 mg capsule 0.4 mg PO QHS #30 caps 10/28/23 12/09/23 Rx insulin glargine 100 unit/mL (3 40 unit subcut HS 12/02/23 12/09/23 History mL) subcutaneous pen (Lantus Solostar U-100 Insulin) metformin 500 mg tablet,extended 2,000 mg PO HS 12/02/23 12/09/23 History release 24 hr apixaban 5 mg tablet (Eliquis) 5 mg PO Q12HR AIFB #18 tabs 12/05/23 12/09/23 Rx docusate sodium 100 mg capsule 100 mg PO BID #60 caps 12/05/23 12/09/23 Rx hydrocodone 5 mg-acetaminophen 325 1 tablet PO Q6-8H PRN Moderate 12/05/23 12/09/23 Rx mg tablet Pain (4-6) #25 tabs pantoprazole 40 mg tablet,delayed 40 mg PO QAM #9 tabs 12/05/23 12/09/23 Rx release acetaminophen 325 mg tablet 650 mg PO PRN PRN Pain 12/09/23 12/09/23 History tolnaftate 1 % topical powder 1 applic topical Q12HR BILAT GROIN 12/09/23 12/09/23 History Laboratory Tests 12/16/23 07:01 POC Capillary Glucose 140 H mg/dl (65-105) Patient hx anesthesia problems: none Family hx anesthesia problems: none Results Review: All pre-operative results and documents have been reviewed as part of the pre-operative evaluation. [facility] Past Medical History Medical History Arthritis Cancer prostate cancer Cardiac arrhythmia atrial fibrillation Diabetes Essential hypertension Myocardial infarction Right knee pain Stroke Testicular hypofunction Urinary symptom or sign Surgical History Surgical History History of cataract extraction History of tonsillectomy Family History Family History Mother Hypertension Family history of cardiovascular disease Cerebrovascular accident Father Hypertension Cerebrovascular accident Sibling Family history of cardiovascular disease Social History Social History Smoking status: Never smoker Second hand tobacco smoke exposure: No Alcohol intake: never Substance use: never Substance use type: does not use Do You Feel Safe in your Home?: Yes Lack of Transportation: No Lack of Food: Never True Current Housing: I Have Housing Concerned About Future Housing: No Difficul
--- NOTE | 2023-12-16 07:13 | WPDHPUPDATE1 ---
History and Physical Update Update Date/Time: 12/16/23 07:13 History and Physical has been reviewed, including an updated exam of the patient. There are NO changes in the patient's condition. Risks, benefits, and alternatives have been discussed and questions answered. Patient agrees to proceed with procedure.
[2023-12-16] MEDS: ceFAZolin 3 GM/D5W 100 ML 100 ML IVPB (07:41)
[2023-12-16] MEDS: ceFAZolin SODIUM 1 GM VIAL (08:28)
--- NOTE | 2023-12-16 10:23 | W.PM.PROC2 ---
Procedure Note - Detailed Date of Procedure 12/16/23 Pre-op Diagnosis Rt Trimalleolar Ankle Fx Post-op Diagnosis Same Procedure Performed Open reduction internal fixation right trimalleolar ankle fracture without fixation of posterior malleolus. Surgeon Dennis Mann MD [employer] Kaleb SALDANA Anesthesia General Description of Procedure Patient was brought to the operating room and general anesthesia was administered. He received weight based vancomycin and 3 g of Ancef preoperatively. He has significant venous stasis skin changes in the right lower extremity and chronic [place] edema making the surgery little more difficult because of depth of the wounds and the poor soft tissue mobility. Skin was completely intact however without blisters or abrasions. After removal of the splint the mediolateral aspects of the ankle were carefully scrubbed with the chlorhexidine cloth. Two blankets were placed under the buttock and large roll of blankets placed behind the knee and the right foot and calf prepped draped usual fashion. Limb was exsanguinated tourniquet elevated to 300 mmHg. A 6 in longitudinal incision was made centered over the fracture site of the distal fibula and lateral malleolus. We looked for branches of superficial peroneal nerve but did not visualize any. Careful dissection brought us to the fracture which was exposed hematoma evacuated. One could see that the bone quality was very poor. The a small area of periosteal surface of bone was noted to be peeled off closed the fracture site centrally in the lateral malleolus. The fracture was carefully evacuated of hematoma which was organized. And anatomic reduction was achieved and held with lobster claw type clamp proximally in the shaft and towel clip style reduction clamp distally. It was a long oblique fracture pattern. Therefore we chose interfragmentary fixation with two 2.0 mm screws placed in lag fashion, the 1st 1 more proximal was placed from posterior to anterior because the spike was on the posterolateral surface of the distal fibular shaft and the 2nd screw, a cm more distal. was placed from anterior to posterior. Both screws obtained satisfactory purchase but we did leave the lobster claw type clamp on for additional security. We chose a 7 hole 1/3 tubular locking plate from the [employer] set and this was carefully contoured. The wound was thoroughly irrigated the plate irrigated and plate was stabilized with the olive wire the distal hole. Proximally the plate rested on the lateral edge of the fibular shaft. A cortical screw from the 3rd from proximal hole was placed compressing the plate well to the bone and there was no loss of fixation from the interfragmentary fixation. Two locking screws placed in the distal 2 holes. Two additional cortical screws placed in the proximal 2 holes and we placed another locking screw from the 3rd from most distal hole the middle hole left open as it was over the fracture. Proper length of screws was confirmed fluoroscopically. Unfortunately the small medial malleolus fracture which involved the anterior colliculus and was fairly transverse, remained displaced by at least 3 mm. I therefore proceeded with open reduction internal fixation of the medial malleolus fragment or it would go on to nonunion with certainty. A 2-1/2 inch longitudinal incision was made centered over the medial malleolus. We did not encounter the saphenous nerve or saphenous vein. The deltoid ligament and periosteum was infolded into the fracture and this was extracted and reduction was achieved with 2 towel clips style clamps. The fragment was only being a for a single screw which was placed after placing the guidewire in proper position perpendicular the fracture between the clamps and a 4.0 40 mm longer thread partially-threaded cannulated screw was placed and obtained excellent purchase and compression without fragmenting the small fragment. Final radiographs were obtained
[2023-12-16 11:21] LABS: Glucose Point of Care 164 mg/dl (65-105)
[2023-12-16] MEDS: oxyCODONE HCL (*CRX) 5 MG TAB IR PO ×2 (12:58→16:26)
[2023-12-16] MEDS: SODIUM CHLORIDE 0.9% IV 1,000 ML 125 ML IV CONT (13:00)
--- NOTE | 2023-12-16 13:36 | ADMGEN ---
This patient, Orlando Dial, was admitted to 3 [facility] Surg Room 307-01. Patient/family oriented to hospital policies and general routines including ID bracelet, bed and alarms, visiting hours, pain management, procedures, bathroom and other care routines, personal items, smoking policy, room service/diet, and visiting hours. Information on how to activate the Rapid Response Team has been discussed. Patient/Family are encouraged to report perceived risks to care and to ask questions if they do not understand what they are told or what they should do. Report from Akila in PACU
[2023-12-16] MEDS: MORPHINE SULFATE (*CRX) 2 MG/ML INJ IV PUSH (14:39)
--- NOTE | 2023-12-16 15:19 | WPDCN ---
Assessment and Plan Assessment and plan (1) Trimalleolar fracture of right ankle: Code(s): S82.851A - Displaced trimalleolar fracture of right lower leg, initial encounter for closed fracture Status: Acute Assessment and Plan: Postoperative day 0 status post open reduction internal fixation. Wound care, pain control, and DVT prophylaxis deferred to Dr. Mann. (2) Type 2 diabetes mellitus: Code(s): E11.9 - Type 2 diabetes mellitus without complications Status: Acute Assessment and Plan: Continue basal insulin. Resume oral medications when tolerating diet. Initiate sliding scale insulin, Accu-Cheks, and hypoglycemic protocol. (3) Atrial fibrillation: Code(s): I48.91 - Unspecified atrial fibrillation Status: Acute Assessment and Plan: Rate controlled. Resume anticoagulation when okay with Dr. Mann. (4) Obstructive sleep apnea on CPAP: Code(s): G47.33 - Obstructive sleep apnea (adult) (pediatric) Status: Acute Assessment and Plan: CPAP will be provided for the patient to use while hospitalized. (5) Diastolic dysfunction: Code(s): I51.89 - Other ill-defined heart diseases Status: Acute Assessment and Plan: Appears euvolemic at this time. Avoid over-hydration. Monitor daily weights and I/O. (6) Benign prostatic hyperplasia: Code(s): N40.0 - Benign prostatic hyperplasia without lower urinary tract symptoms Status: Acute Assessment and Plan: P.r.n. bladder scan to monitor for postoperative retention. Continue tamsulosin. (7) Essential hypertension: Code(s): I10 - Essential (primary) hypertension Status: Acute Assessment and Plan: Blood pressures were reviewed and they have been a bit soft. Hold antihypertensives for now and monitor blood pressures daily. Plan Thank you for allowing us to participate in this patient's care. Please do not hesitate to contact us with any questions. HPI Data of Consult Date/Time: 12/16/23 16:00 Requesting Physician: Dennis Mann MD Consult Narrative Reason for consult: Medical management. Narrative: This is an 78-year-old male with history of stroke, atrial fibrillation on chronic anticoagulation, hypertension, hyperlipidemia, type 2 diabetes mellitus, obstructive sleep apnea, gastroesophageal reflux disease, prostate cancer, benign prostatic hyperplasia, and gout whom the hospitalist service has been consulted for help managing his medical conditions postoperatively. He sustained a right trimalleolar fracture in a fall on 12/02/2023 and he presented today for open reduction internal fixation. His surgery was performed under general anesthesia with no immediate complications documented. At the time my evaluation he has minimal pain rated 1/10. Blood pressures have been a bit soft this evening though he is asymptomatic with that. He denies fever, chills, sweats, chest pain, shortness of breath, nausea, and vomiting. He is concerned where he is going on discharge as he is to be nonweightbearing for 6 weeks. He is hopeful that he will be accepted to [facility]. Review of Systems Review of Systems: 12 systems were reviewed and are negative except for as per HPI. [facility] Past Medical History Medical History Arthritis Atrial fibrillation Benign prostatic hyperplasia Congestive heart failure Essential hypertension Myocardial infarction Obstructive sleep apnea on CPAP Prostate cancer Stroke Testicular hypofunction Type 2 diabetes mellitus Surgical History Surgical History History of cataract extraction History of colonoscopy with polypectomy History of tonsillectomy Family History Family History Mother Hypertension Family history of cardio
[2023-12-16] MEDS: ceFAZolin 2 GM/D5W 50 ML 2 GM/50 ML BAG IVPB (15:41)
[2023-12-16] MEDS: SENNA/DOCUSATE SODIUM TABLET 2 TAB PO (16:26)
[2023-12-16] MEDS: ACETAMINOPHEN 325 MG TABLET 650 MG PO ×2 (16:26→20:51)
[2023-12-16 17:16] LABS: Glucose Point of Care 156 mg/dl (65-105)
[2023-12-16] MEDS: VANCOMYCIN 1,000 MG/NS 250 ML 1,000 MG/250 ML BAG 250 MG IVPB (18:00)
[2023-12-16 20:12] LABS: Glucose Point of Care 175 mg/dl (65-105)
[2023-12-16] MEDS: FAMOTIDINE 20 MG TABLET PO (20:51)
[2023-12-16] MEDS: TAMSULOSIN HCL 0.4 MG CAPSULE PO (20:51)
[2023-12-16] MEDS: metFORMIN HCL XR 500 MG TAB.SR.24H 2000 MG PO (20:51)
[2023-12-16] MEDS: SODIUM CHLORIDE 0.9% IV 500 ML IV CONT (20:57)
[2023-12-16] MEDS: INSULIN GLARGINE (*BKC) 100 UNITS/ML 40 UNITS SUB-Q (20:58)
[2023-12-16] MEDS: TOLNAFTATE 1% POWDER 45 GM BTL 1 APPLIC TOPICAL (22:32)
[2023-12-17] VITALS (13 sets, daily range): BP systolic 91–145; BP diastolic 40–80; PULSE 55–81; RESP 14–24; TEMP 36.3–36.6; O2SAT 93–98
--- NOTE | ~2023-12-17 | XR_ITS ---
EXAMINATION: XR surgery orthopedic DATE: 12/16/2023 10:36 INDICATION: ORIF right ankle fracture TECHNIQUE: 5 fluoroscopic images of the right ankle were obtained during procedure performed by Dr. Kobi murphy. Radiologist was not present for the imaging or procedure. The amount of fluoroscopy time used during this procedure was 1.1 minutes. COMPARISON: 12/02/2023 FINDINGS: Internal fixation of the lateral malleolar fracture with a couple interfragmentary screws and lateral plate and screws. The medial malleolar fractures fixed with a single cannulated lag screw. The poste rior malleolar fracture remains unfixed. The fracture also nondisplaced with near anatomic alignment including a congruent ankle mortise. Expected small amount of lucent gas at the anterior recess of th e ankle joint. Joint spaces appear normal. IMPRESSION: 1. Near-anatomic alignment post internal fixation of a trimalleolar fracture of the right ankle as de tailed above. See procedure note for further detail. Reviewed, dictated and finalized at location B. IMPRESSION: 1. Near-anatomic alignment post internal fixation of a trimalleolar fracture of the right ankle as detailed above. See procedure note for further detail.
[2023-12-17] MEDS: oxyCODONE HCL (*CRX) 5 MG TAB IR PO ×3 (00:27→09:15)
[2023-12-17] MEDS: ceFAZolin 2 GM/D5W 50 ML 2 GM/50 ML BAG IVPB ×2 (00:27→09:08)
[2023-12-17] MEDS: ACETAMINOPHEN 325 MG TABLET 650 MG PO ×6 (00:27→20:28)
[2023-12-17 05:42] LABS: Basophils Absolute Auto 0.1 K/mm3 (0.0-0.1); Eosinophils Absolute Auto 0.4 K/mm3 (0-0.3); Eosinophils Percent Auto 4.9 % (0-4.4); Hematocrit 39.5 % (42.0-52.0); Hemoglobin 11.9 g/dL (14.0-18.0); Immature Granulocyte Absolute 0.06 K/mm3 (0.00-0.031); Immature Granulocyte Percent A 0.8 % (0-0.5); Lymphocytes Absolute Auto 1.14 K/mm3 (0.9-3.2); Lymphocytes Percent Auto 14.5 % (18.3-44.2); Mean Corpuscular HGB Conc 30.1 g/dl (32-36); Mean Corpuscular Hemoglobin 28.7 pg (26-34); Mean Corpuscular Volume 95.4 fl (80-100); Mean Platelet Volume 9.7 fl (7.4-10.4); Monocytes Absolute Auto 0.6 K/mm3 (0.1-0.6); Neutrophils Absolute Auto 5.6 K/mm3 (1.3-6.7); Neutrophils Percent Auto 70.8 % (45.5-73.1); Platelet Count Result 204 k/mm3 (150-375); Red Blood Count 4.14 M/mm3 (4.6-6.20); Red Cell Distribution Width 15.5 % (11.5-14.5); White Blood Count 7.9 K/mm3 (4.5-10.0)
[2023-12-17 05:59] LABS: Alanine Aminotransferase 12 U/L (6-50); Albumin Level 3.2 g/dL (3.5-5.1); Alkaline Phosphatase 118 U/L (38-126); Anion Gap 4 mmol/L (4-12); Aspartate Amino Transferase 17 U/L (17-59); Bilirubin,Total 0.6 mg/dL (0.2-1.3); Blood Urea Nitrogen 26 mg/dL (9-20); Calcium 8.1 mg/dL (8.4-10.2); Carbon Dioxide 31 mmol/L (22-30); Chloride 104 mmol/L (98-107); Estimated CRCL calculation 66 ml/min; Estimated Glomerular Filt Rate 58; Glucose 142 mg/dL (65-110); Magnesium 2.2 mg/dL (1.6-2.3); Potassium 4.7 mmol/L (3.4-5.0); Sodium 139 mmol/L (137-145)
[2023-12-17] MEDS: VANCOMYCIN 1,000 MG/NS 250 ML 1,000 MG/250 ML BAG 250 MG IVPB (06:27)
[2023-12-17 07:37] LABS: Glucose Point of Care 135 mg/dl (65-105)
--- NOTE | 2023-12-17 08:49 | P.PNIM_ITS ---
Progress Note: A&P Assessment and Plan (1) Trimalleolar fracture of right ankle: Code(s): S82.851A - Displaced trimalleolar fracture of right lower leg, initial encounter for closed fracture Status: Acute (2) Atrial fibrillation: Code(s): I48.91 - Unspecified atrial fibrillation Status: Acute (3) Obstructive sleep apnea on CPAP: Code(s): G47.33 - Obstructive sleep apnea (adult) (pediatric) Status: Acute (4) Congestive heart failure: Code(s): I50.9 - Heart failure, unspecified Status: Acute (5) Benign prostatic hyperplasia: Code(s): N40.0 - Benign prostatic hyperplasia without lower urinary tract symptoms Status: Acute (6) Type 2 diabetes mellitus: Code(s): E11.9 - Type 2 diabetes mellitus without complications Status: Acute (7) Diabetes mellitus with peripheral angiopathy: Code(s): E11.51 - Type 2 diabetes mellitus with diabetic peripheral angiopathy without gangrene Status: Acute Plan Closed trimalleolar fracture * Post-op day 1 * Non-weight bearing 6 weeks * PT/OT consult for placement * pain control * Elevate and ICE RLE * Eliquis b.i.d. Chronic diastolic heart failure with reserved EF * Stable * cardiology consulted * Resumed PO Lasix * previous echocardiogram results 2021: EF of 50-55%, abnormal diastolic dysfun ction, a-fib, RV systolic function moderately reduced, left and right atrial chambers severely enlarged. * echocardiogram pending * EKG: AFIB AFIB/AFLUTTER * EKG AFIB controlled * Coumadin D/C prior to surgery can transition to Eliquis PO Diabetes * Accu-Cheks a.c. HS * sliding scale insulin * hold oral diabetic medications * resume patient's home long-acting * Diabetic diet * consult to dietitian * encourage lifestyle modifications and weight loss * Optimize Sarkis inhibitors and statins. * Watch for hypoglycemia/hypoglycemic protocol ordered Obesity * encourage increased on physical activity and lifestyle modifications * encourage outpatient weight loss clinic * BMI . * Diet exercise counseling done. * consult to dietitian HX BENNY: resumed CPAP Code status: Full Code DVT prophylaxis: eliquis Stress ulcer prophylaxis: Protonix 40 daily PT/OT notes: non-weight bearing Disposition: Post-op day 1 will need to be non-weight bearing 6 weeks CC working placement Discharging today Time Spent With Patient Time with patient: 15 - 25 minutes Subjective Date/time seen: 12/17/23 08:49 Interval history: 12/16: Patient doing well is being discharged today Review of Systems Review of Systems: 12 systems were reviewed and are negativ e except for as per HPI. All systems reviewed & are unremarkable except as noted in HPI and below Exam Narrative: General: Nontoxic-appearing elderly male HEENT: PERRL, EOMI. Sclera anicteric. Conjunctiva mildly injected. Oral mucosa moist. Neck: Supple. Respiratory: Lungs are clear to auscultation bilaterally. Cardiovascular: Irregularly irregular rate and rhythm. Gastrointestinal: Abdomen is soft, obese, nontender, and nondistended with positive bowel sounds. Skin: Warm and dry. Hyperpigmentation of the left lower leg due to chronic venous stasis. Musculoskeletal: Right lower leg is casted. He is neurovascularly intact distal to the surgical site. Extremities: No cya
--- NOTE | 2023-12-17 08:49 | PM.IMPN ---
Progress Note: A&P Assessment and Plan (1) Trimalleolar fracture of right ankle: Code(s): S82.851A - Displaced trimalleolar fracture of right lower leg, initial encounter for closed fracture Status: Acute (2) Atrial fibrillation: Code(s): I48.91 - Unspecified atrial fibrillation Status: Acute (3) Obstructive sleep apnea on CPAP: Code(s): G47.33 - Obstructive sleep apnea (adult) (pediatric) Status: Acute (4) Congestive heart failure: Code(s): I50.9 - Heart failure, unspecified Status: Acute (5) Benign prostatic hyperplasia: Code(s): N40.0 - Benign prostatic hyperplasia without lower urinary tract symptoms Status: Acute (6) Type 2 diabetes mellitus: Code(s): E11.9 - Type 2 diabetes mellitus without complications Status: Acute (7) Diabetes mellitus with peripheral angiopathy: Code(s): E11.51 - Type 2 diabetes mellitus with diabetic peripheral angiopathy without gangrene Status: Acute Plan Closed trimalleolar fracture Post-op day 1 Non-weight bearing 6 weeks PT/OT consult for placement pain control Elevate and ICE RLE Eliquis b.i.d. Chronic diastolic heart failure with reserved EF Stable cardiology consulted Resumed PO Lasix previous echocardiogram results 2021: EF of 50-55%, abnormal diastolic dysfunction, a-fib, RV systolic function moderately reduced, left and right atrial chambers severely enlarged. echocardiogram pending EKG: AFIB AFIB/AFLUTTER EKG AFIB controlled Coumadin D/C prior to surgery can transition to Eliquis PO Diabetes Accu-Cheks a.c. HS sliding scale insulin hold oral diabetic medications resume patient's home long-acting Diabetic diet consult to dietitian encourage lifestyle modifications and weight loss Optimize Sarkis inhibitors and statins. Watch for hypoglycemia/hypoglycemic protocol ordered Obesity encourage increased on physical activity and lifestyle modifications encourage outpatient weight loss clinic BMI . Diet exercise counseling done. consult to dietitian HX BENNY: resumed CPAP Code status: Full Code DVT prophylaxis: eliquis Stress ulcer prophylaxis: Protonix 40 daily PT/OT notes: non-weight bearing Disposition: Post-op day 1 will need to be non-weight bearing 6 weeks CC working placement Discharging today Time Spent With Patient Time with patient: 15 - 25 minutes Subjective Date/time seen: 12/17/23 08:49 Interval history: 6/25: Patient doing well is being discharged today Review of Systems Review of Systems: 12 systems were reviewed and are negative except for as per HPI. All systems reviewed & are unremarkable except as noted in HPI and below Exam Narrative: General: Nontoxic-appearing elderly male HEENT: PERRL, EOMI. Sclera anicteric. Conjunctiva mildly injected. Oral mucosa moist. Neck: Supple. Respiratory: Lungs are clear to auscultation bilaterally. Cardiovascular: Irregularly irregular rate and rhythm. Gastrointestinal: Abdomen is soft, obese, nontender, and nondistended with positive bowel sounds. Skin: Warm and dry. Hyperpigmentation of the left lower leg due to chronic venous stasis. Musculoskeletal: Right lower leg is casted. He is neurovascularly intact distal to the surgical site. Extremities: No cyanosis, clubbing, or significant left lower extremity edema. Radial and left pedal pulse palpable. Neurological: Alert. Cranial nerves 2-12 are grossly intact. No gross focal deficits to casual conversation. Psychiatric: Pleasant and cooperative with normal mood and affect. Judgment and insight intact. Objective Data Vital Signs Vital Signs: Vital Signs - 24 hr 12/16/23 10:44 12/16/23 10:55 12/16/23 11:10 Temperature 98.4 F Pulse Rate 70 66 66 Respiratory Rate 20 18 18 Blood Pressure 110/52 L 130/60 136/53 L Pulse Oximetry 98 98 94 Oxygen Delivery Simple Face Mask Simple Fa
--- NOTE | 2023-12-17 08:52 | PM.DS ---
DS: Admitting Diagnosis Discharge Date 12/17/2023 Admitting Diagnosis Trimalleolar right ankle fracture DS: Discharge Diagnosis Discharge Diagnosis (1) Trimalleolar fracture of right ankle: Qualifiers: Encounter type: subsequent encounter Fracture type: closed Fracture healing: with routine healing Qualified Code(s): S82.851D - Displaced trimalleolar fracture of right lower leg, subsequent encounter for closed fracture with routine healing Code(s): S82.851A - Displaced trimalleolar fracture of right lower leg, initial encounter for closed fracture Status: Acute DS: Summary Hospital Course Hospital Course: Patient underwent open reduction and internal fixation of right trimalleolar ankle fracture. This fracture was 2 weeks prior and we allowed for swelling reduction. He does have chronic lymphedema and significant venous stasis skin changes in the right upper leg. The edema poor dermis quality in the medial incision necessitated use of 4-0 nylon sutures for closure. The lateral incision was closed with subcutaneous sutures and glue Patient has extreme obesity with and was noted to have osteoporosis clinically and must be strict nonweightbearing. He is deconditioned and unable to hop with a walker and therefore he is going to be transferred back to the longterm. He was not happy with [facility] and asked that we have the care cord see if he would be a ?candidate for the acute Rehab [place] doubt and if not he would like to be considered for [place]. 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 He has chronic atrial fibrillation rate is in the 60s Clinically he is very comfortable not having any pain right now he wiggles his toes and denies numbness or tingling in his toes were top of the foot at this time. We will start Eliquis 2.5 mg q.12 hours this morning at 9:00 a.m. for DVT prophylaxis and then in 3 days on Tuesday 12/19, we will resume his home Eliquis 5 mg q.12 hours for prophylaxis against embolic events from his he I art. Time Spent with Patient Time attestation: Total time spent providing and/or coordinating discharge services: DS: Data Data Completed and Pending Labs on day of discharge: Labs from last 24 hours 12/17/23 12/17/23 12/16/23 07:34 05:03 20:01 WBC 7.9 RBC 4.14 L Hgb 11.9 L Hct 39.5 L MCV 95.4 MCH 28.7 MCHC 30.1 L RDW 15.5 H Plt Count 204 D MPV 9.7 Immature Gran % (Auto) 0.8 H Neut % (Auto) 70.8 Lymph % (Auto) 14.5 L [place] % (Auto) 8.0 Eos % (Auto) 4.9 H Baso % (Auto) 1.0 Lymph # (Auto) 1.14 [place] # (Auto) 0.6 Eos # (Auto) 0.4 H Baso # (Auto) 0.1 Abs Immat Gran (auto) 0.06 H Absolute Neuts (auto) 5.6 Absolute Nucleated RBC 0.000 Nucleated RBC % 0.0 Sodium 139 Potassium 4.7 Chloride 104 Carbon Dioxide 31 H Anion Gap 4 BUN 26 H Creatinine 1.20 Estim Creat Clear Calc 66 Estimated GFR 58 L Glucose 142 H POC Capillary Glucose 135 H 175 H Calcium 8.1 L Magnesium 2.2 Total Bilirubin 0.6 Direct Bilirubin 0.0 AST 17 ALT 12 Alkaline Phosphatase 118 Total Protein 6.0 L Albumin 3.2 L 12/16/23 12/16/23 17:11 10:52 WBC RBC Hgb Hct MCV MCH MCHC RDW Plt Count MPV Immature Gran % (Auto) Neut % (Auto) Lymph % (Auto) [place] % (Auto) Eos % (Auto) Baso % (Auto) Lymph # (Auto) [place] # (Auto) Eos # (Auto) Baso # (Auto) Abs Immat Gran (auto) Absolute Neuts (auto) Absolute Nucleated RBC Nucleated RBC % Sodium Potassium Chloride Carbon Dioxide Anion Gap BUN Creatinine Estim Creat Clear Calc Estimated GFR Glucose POC Capillary Glucose 156 H 164 H Calcium Magnesium Total Bilirubin Direct Bilirubin AST ALT Alkaline Phosphatase Total Protein Albumin Discharge Plan Discharge Patient Disposition: [facility] Disch
[2023-12-17] MEDS: APIXABAN 2.5 MG TABLET PO ×2 (09:14→20:28)
[2023-12-17] MEDS: TOLNAFTATE 1% POWDER 45 GM BTL 1 APPLIC TOPICAL ×2 (09:14→20:37)
[2023-12-17] MEDS: polyethylene glycoL 3350 17 GM POWD.PACK PO (09:14)
[2023-12-17] MEDS: SENNA/DOCUSATE SODIUM TABLET 2 TAB PO ×2 (09:15→16:45)
[2023-12-17] MEDS: SIMVASTATIN 10 MG TABLET BY MOUTH (09:15)
[2023-12-17] MEDS: FAMOTIDINE 20 MG TABLET PO ×2 (09:15→20:28)
[2023-12-17] MEDS: EMPAGLIFLOZIN 25 MG TABLET BY MOUTH (09:15)
[2023-12-17] MEDS: allopurinoL 300 MG TABLET PO (09:15)
[2023-12-17 11:40] LABS: Glucose Point of Care 175 mg/dl (65-105)
[2023-12-17] MEDS: CEFDINIR 300 MG CAPSULE PO ×2 (13:20→20:28)
--- NOTE | 2023-12-17 14:27 | PM.PNORT ---
Progress Note: A&P Assessment and Plan (1) Trimalleolar fracture of right ankle: Qualifiers: Encounter type: sequela Fracture type: closed Qualified Code(s): S82.851S - Displaced trimalleolar fracture of right lower leg, sequela Code(s): S82.851A - Displaced trimalleolar fracture of right lower leg, initial encounter for closed fracture Status: Acute Assessment and Plan: I spoke with the nurse who spoke with Dr. Berger who felt that it would be acceptable to use oral calcium supplementation and this is ordered. The care technician has contacted the acute Rehab [facility] but this not felt that he would qualify final ruling is pending. Per patient's request she non contacted [facility] but they do not have any bed openings The plan is for the patient to be transferred back to the [facility] but insurance authorization for the transfer back is still pending and I am notified that sometimes it may take 1 or 2 days for at not to get back to us so the patient will stay in the house in the hospital until that occurs course at which time upon approval he will be transferred back to [facility] where he will reside for approximately 6 weeks until he can be ambulatory. The patient is deconditioned he has extreme obesity with BMI of 45 and with his osteoporosis and extreme obesity he must be nonweightbearing particularly in light of his diabetes which puts him at higher risk for loss of fixation complications due to neuropathy issues. And for these reasons, he is unable to be at home with his until he can be weight-bearing. Subjective Subjective Date/Time Seen: 12/17/23 14:27 Objective Data Vital Signs Vital Signs: Vital Signs - 24 hr 12/16/23 16:00 12/16/23 18:00 12/16/23 20:15 Temperature 35.7 C L 36.3 C L Pulse Rate 78 81 64 Respiratory Rate 18 18 Blood Pressure 100/60 98/61 L Pulse Oximetry 97 97 Oxygen Delivery 12/16/23 22:04 12/16/23 22:05 12/16/23 20:00 Temperature Pulse Rate Respiratory Rate Blood Pressure 115/61 106/51 L Pulse Oximetry 97 Oxygen Delivery Room Air 12/16/23 20:00 12/16/23 23:27 12/17/23 03:15 Temperature 36.6 C 36.3 C L Pulse Rate 62 65 66 Respiratory Rate 16 18 Blood Pressure 114/59 L 109/66 Pulse Oximetry 96 93 Oxygen Delivery 12/17/23 00:00 12/17/23 04:00 12/17/23 07:59 Temperature Pulse Rate 60 68 Respiratory Rate Blood Pressure Pulse Oximetry Oxygen Delivery Room Air 12/17/23 09:12 12/17/23 08:00 12/17/23 09:48 Temperature 36.6 C Pulse Rate 81 62 62 Respiratory Rate 18 Blood Pressure 113/50 L 91/40 L Pulse Oximetry 97 Oxygen Delivery 12/17/23 12:04 12/17/23 12:00 Temperature Pulse Rate 63 Respiratory Rate Blood Pressure 110/70 Pulse Oximetry Oxygen Delivery Intake/Output Intake/Output: Intake & Output 12/14/23 12/15/23 12/16/23 12/17/23 23:59 23:59 23:59 23:59 Intake Total 1670 1190 Output Total 500 850 Balance 1170 340 Meds/Results Medications: Active Medications Generic Name Dose Route Start Last Admin Trade Name Freq PRN Reason Stop Dose Admin Acetaminophen 650 mg 12/16/23 13:00 12/17/23 12:03 Acetaminophen 325 Mg Tablet PO 650 mg Q4HR RHODA Administration Allopurinol 300 mg 12/17/23 09:00 12/17/23 09:15 Allopurinol 300 Mg Tablet PO 300 mg DAILY RHODA Administration Apixaban 2.5 mg 12/17/23 09:00 12/17/23 09:14 Apixaban 2.5 Mg Tablet PO 01/20/24 21:01 2.5 mg Q12HR RHODA Administration Cefdinir 300 mg 12/17/23 14:00 12/17/23 13:20 Cefdinir 300 Mg Capsule PO 300 mg Q12HR RHODA Administration Dextrose 12.5 gm 12/16/23 15:29 Dextrose 50% 25 Gm/50 Ml Syringe IV PUSH PRN PRN Hypoglycemia Protocol Empagliflozin 25 mg 12/17/23 09:00 12/17/23 09:15 Empagliflozin 25 Mg Tablet BY MOUTH 25 mg DAILY RHODA Administration Famotidine
--- NOTE | 2023-12-17 15:35 | P.PNAN_ITS ---
Anes - Prog Note Post-Op Date/Time: 12/17/23 15:35 Cardiovascular status: normal Respiratory status: normal Airway patency: baseline Mental status: baseline Post-Op hydration status: normal Vital Signs: Last Vital Signs Temp 36.6 C 12/17/23 09:48 Pulse 63 12/17/23 12:00 Resp 18 12/17/23 09:48 BP 110/70 12/17/23 12:04 Pulse Ox 97 12/17/23 09:48 O2 Del Method Room Air 12/17/23 07:59 O2 Flow Rate 8 12/16/23 10:55 Pain Score (VAS): 2 I/O: Intake & Output 12/16/23 12/17/23 12/17/23 23:59 07:59 15:59 Intake Total 1040 900 290 Output Total 500 850 Balance 540 50 290 Laboratory Tests 12/17/23 05:03 12/17/23 05:03 12/16/23 12/16/23 12/17/23 17:11 20:01 05:03 WBC 7.9 RBC 4.14 L Hgb 11.9 L Hct 39.5 L MCV 95.4 MCH 28.7 MCHC 30.1 L RDW 15.5 H Plt Count 204 D MPV 9.7 Immature Gran % (Auto) 0.8 H Neut % (Auto) 70.8 Lymph % (Auto) 14.5 L [place] % (Auto) 8.0 Eos % (Auto) 4.9 H Baso % (Auto) 1.0 Lymph # (Auto) 1.14 [place] # (Auto) 0.6 Eos # (Auto) 0.4 H Baso # (Auto) 0.1 Abs Immat Gran (auto) 0.06 H Absolute Neuts (auto) 5.6 Absolute Nucleated RBC 0.000 Nucleated RBC % 0.0 Sodium 139 Potassium 4.7 Chloride 104 Carbon Dioxide 31 H Anion Gap 4 BUN 26 H Creatinine 1.20 Estim Creat Clear Calc 66 Estimated GFR 58 L Glucose 142 H POC Capillary Glucose 156 H 175 H Calcium 8.1 L Magnesium 2.2 Total Bilirubin 0.6 Direct Bilirubin 0.0 AST 17 ALT 12 Alkaline Phosphatase 118 Total Protein 6.0 L Albumin 3.2 L 12/17/23 12/17/23 07:34 11:38 WBC RBC Hgb Hct MCV MCH MCHC RDW Plt Count MPV Immature Gran % (Auto) Neut % (Auto) Lymph % (Auto) [place] % (Auto) Eos % (Auto) Baso % (Auto) Lymph # (Auto) [place] # (Auto) Eos # (Auto) Baso # (Auto) Abs Immat Gran (auto) Absolute Neuts (auto) Absolute Nucleated RBC Nucleated RBC % Sodium Potassium Chloride Carbon Dioxide Anion Gap BUN Creatinine Estim Creat Clear Calc Estimated GFR Glucose POC Capillary Glucose 135 H 175 H Calcium Magnesium Total Bilirubin Direct Bilirubin AST ALT Alkaline Phosphatase Total Protein Albumin Post-procedural complaints: none Patient Feedback: Patient satisfied with anesthetic care.
[2023-12-17 16:46] LABS: Glucose Point of Care 143 mg/dl (65-105)
[2023-12-17] MEDS: TAMSULOSIN HCL 0.4 MG CAPSULE PO (20:28)
[2023-12-17] MEDS: INSULIN GLARGINE (*BKC) 100 UNITS/ML 40 UNITS SUB-Q (20:32)
[2023-12-17 20:35] LABS: Glucose Point of Care 171 mg/dl (65-105)
[2023-12-18] VITALS (9 sets, daily range): BP systolic 121–144; BP diastolic 61–70; PULSE 55–71; RESP 13–20; TEMP 35.7–36.4; O2SAT 95–98
[2023-12-18] MEDS: ACETAMINOPHEN 325 MG TABLET 650 MG PO ×4 (06:01→20:57)
[2023-12-18 08:09] LABS: Glucose Point of Care 147 mg/dl (65-105)
[2023-12-18] MEDS: CEFDINIR 300 MG CAPSULE PO ×2 (09:41→20:57)
[2023-12-18] MEDS: SIMVASTATIN 10 MG TABLET BY MOUTH (09:41)
[2023-12-18] MEDS: APIXABAN 2.5 MG TABLET PO ×2 (09:41→20:58)
[2023-12-18] MEDS: allopurinoL 300 MG TABLET PO (09:41)
[2023-12-18] MEDS: TOLNAFTATE 1% POWDER 45 GM BTL 1 APPLIC TOPICAL ×2 (09:41→20:58)
[2023-12-18] MEDS: SENNA/DOCUSATE SODIUM TABLET 2 TAB PO (09:41)
[2023-12-18] MEDS: EMPAGLIFLOZIN 25 MG TABLET BY MOUTH (09:41)
[2023-12-18] MEDS: polyethylene glycoL 3350 17 GM POWD.PACK PO (09:41)
[2023-12-18] MEDS: FAMOTIDINE 20 MG TABLET PO ×2 (09:41→20:58)
[2023-12-18 11:44] LABS: Glucose Point of Care 152 mg/dl (65-105)
--- NOTE | 2023-12-18 13:07 | PM.PNORT ---
Subjective Subjective Date/Time Seen: 12/18/23 13:07 Interval history: Postop day 2 patient is alert. He is afebrile vital signs are stable. His splint had blood staining on the lateral aspect. I took the splint and dressing off. He had some mild bloody drainage from the medial incision which was dry at this point. Lateral incision there was blood underneath the glue. I was able to open an area of the glue to allow the blood to drain out. I do not want incision to be saturated with blood as this could slow down skin healing. He has very poor skin especially laterally from chronic venous stasis skin changes as well as swelling. Skin edges underneath the glue looked good without any edge necrosis. The subcuticular sutures were holding. There is no gapping of the incision laterally. Medially the incision looks fine. Patient has no swelling in the ankle or foot. Ankle was redressed with a bulky 4x4s and soft roll. OCL splint was placed back on him with ABD in the heel. When I was changing patient stressing out and I had him move in the bed he was pushing his surgical heal into the bed to move himself and I strongly advised him that he is not to be putting weight in this ankle. He has severe fracture in the ankle and his bones were soft at the time surgery and if he does this multiple times he could cause problems with the healing in his ankle. At this point we are waiting on care coordination to find a facility for him to be transferred to. Patient is on low-dose Eliquis and will be on this for a week and then at that point he will resume his 5 mg twice a day. Objective Data Vital Signs Vital Signs: Vital Signs - 24 hr 12/17/23 13:48 12/17/23 16:00 12/17/23 21:18 Temperature 97.9 F 97.7 F Pulse Rate 64 79 77 Respiratory Rate 18 14 Blood Pressure 118/80 145/64 H Pulse Oximetry 97 98 Oxygen Delivery 12/17/23 22:30 12/17/23 20:00 12/18/23 00:00 Temperature Pulse Rate 55 L 80 61 Respiratory Rate 24 H Blood Pressure Pulse Oximetry Oxygen Delivery Autopap 12/18/23 04:00 12/18/23 05:49 Temperature 97.1 F L Pulse Rate 65 57 L Respiratory Rate 13 Blood Pressure 144/70 H Pulse Oximetry 96 Oxygen Delivery Intake/Output Intake/Output: Intake & Output 12/15/23 12/16/23 12/17/23 12/18/23 23:59 23:59 23:59 23:59 Intake Total 1670 1670 1106 Output Total 500 1340 1200 Balance 1170 330 -94 Meds/Results Medications: Active Medications Generic Name Dose Route Start Last Admin Trade Name Freq PRN Reason Stop Dose Admin Acetaminophen 650 mg 12/16/23 13:00 12/18/23 09:41 Acetaminophen 325 Mg Tablet PO 650 mg Q4HR RHODA Administration Allopurinol 300 mg 12/17/23 09:00 12/18/23 09:41 Allopurinol 300 Mg Tablet PO 300 mg DAILY RHODA Administration Apixaban 2.5 mg 12/17/23 09:00 12/18/23 09:41 Apixaban 2.5 Mg Tablet PO 12/19/23 23:59 2.5 mg Q12HR RHODA Administration Apixaban 5 mg 12/20/23 09:00 Apixaban 5 Mg Tablet BY MOUTH Q12HR RHODA Cefdinir 300 mg 12/17/23 14:00 12/18/23 09:41 Cefdinir 300 Mg Capsule PO 300 mg Q12HR RHODA Administration Dextrose 12.5 gm 12/16/23 15:29 Dextrose 50% 25 Gm/50 Ml Syringe IV PUSH PRN PRN Hypoglycemia Protocol Empagliflozin 25 mg 12/17/23 09:00 12/18/23 09:41 Empagliflozin 25 Mg Tablet BY MOUTH 25 mg DAILY RHODA Administration Famotidine 20 mg 12/16/23 21:00 12/18/23 09:41 Famotidine 20 Mg Tablet PO 20 mg Q12HR RHODA Administration Furosemide 40 mg 12/17/23 09:00 Furosemide 40 Mg Tablet BY MOUTH DAILY RHODA Glipizide 5 mg 12/17/23 08:00 Glipizide Xl 5 Mg Tabcr BY MOUTH DAILY@0800 RHODA Glucagon 1 mg 12/16/23 15:29 Glucagon For Inj 1 Mg Vial IM PRN PRN Hypoglycemia Protocol Glucose 15 gm 12/16/23 15:29 Glucose Oral Gel 15 Gm Of Glucse In 37.5 Gm Tube PO PRN PRN Hypoglycemia Protocol Dextrose 1,0
[2023-12-18 17:00] LABS: Glucose Point of Care 153 mg/dl (65-105)
[2023-12-18 19:41] LABS: Glucose Point of Care 204 mg/dl (65-105)
[2023-12-18] MEDS: TAMSULOSIN HCL 0.4 MG CAPSULE PO (20:58)
[2023-12-18] MEDS: INSULIN ASPART (*BKC) 100 UNITS/ML SUB-Q (21:00)
[2023-12-18] MEDS: INSULIN GLARGINE (*BKC) 100 UNITS/ML 40 UNITS SUB-Q (21:01)
[2023-12-19] VITALS (11 sets, daily range): BP systolic 138–161; BP diastolic 59–70; PULSE 55–78; RESP 20; TEMP 36.2–36.5; O2SAT 95–98
[2023-12-19] MEDS: ACETAMINOPHEN 325 MG TABLET 650 MG PO ×5 (01:41→21:07)
[2023-12-19 07:55] LABS: Glucose Point of Care 137 mg/dl (65-105)
[2023-12-19] MEDS: allopurinoL 300 MG TABLET PO (08:57)
[2023-12-19] MEDS: FAMOTIDINE 20 MG TABLET PO ×2 (08:57→21:07)
[2023-12-19] MEDS: APIXABAN 2.5 MG TABLET PO ×2 (08:57→21:07)
[2023-12-19] MEDS: EMPAGLIFLOZIN 25 MG TABLET BY MOUTH (08:57)
[2023-12-19] MEDS: polyethylene glycoL 3350 17 GM POWD.PACK PO (08:57)
[2023-12-19] MEDS: SIMVASTATIN 10 MG TABLET BY MOUTH (08:57)
[2023-12-19] MEDS: SENNA/DOCUSATE SODIUM TABLET 2 TAB PO ×2 (08:57→16:47)
[2023-12-19] MEDS: TOLNAFTATE 1% POWDER 45 GM BTL 1 APPLIC TOPICAL ×2 (08:58→21:10)
[2023-12-19] MEDS: CEFDINIR 300 MG CAPSULE PO ×2 (08:58→21:07)
--- NOTE | 2023-12-19 10:44 | PC.NURSE ---
Patient resting in bed for morning assessment. Toes equal bilaterally in color, temperature, and sensation. No reported pain. Patient educated on current DC plans, maintaining position of foot, and to use the call light of any needs. Patient very cooperative and interested what is the plan for DC today. Care coordination yet to see patient today.
[2023-12-19 11:21] LABS: Glucose Point of Care 164 mg/dl (65-105)
--- NOTE | 2023-12-19 11:53 | PM.PNORT ---
Subjective Subjective Date/Time Seen: 12/19/23 11:53 Interval history: Postop day 3 patient is alert. His pain is well controlled. He had a little bit increased pain yesterday after he changed his dressing but this subsided at this point is very comfortable. Dressing is intact in completely dry both medial and lateral. At this point we are still waiting for insurance approval so that he can be transferred to rehab facility. Objective Data Vital Signs Vital Signs: Vital Signs - 24 hr 12/18/23 14:20 12/18/23 12:00 12/18/23 16:00 Temperature 96.2 F L Pulse Rate 55 L 62 59 L Respiratory Rate 18 Blood Pressure 121/69 Pulse Oximetry 95 Oxygen Delivery 12/18/23 21:05 12/18/23 20:00 12/18/23 20:00 Temperature 97.6 F Pulse Rate 71 59 L Respiratory Rate 20 Blood Pressure 127/61 Pulse Oximetry 98 Oxygen Delivery Room Air 12/19/23 00:00 12/19/23 04:00 12/19/23 05:16 Temperature 97.7 F Pulse Rate 78 55 L 63 Respiratory Rate 20 Blood Pressure 146/59 H Pulse Oximetry 98 Oxygen Delivery 12/19/23 08:47 Temperature Pulse Rate Respiratory Rate Blood Pressure Pulse Oximetry 95 Oxygen Delivery Room Air Intake/Output Intake/Output: Intake & Output 12/16/23 12/17/23 12/18/23 12/19/23 23:59 23:59 23:59 23:59 Intake Total 1670 1670 1826 1160 Output Total 500 1340 2550 850 Balance 1170 330 -724 310 Meds/Results Medications: Active Medications Generic Name Dose Route Start Last Admin Trade Name Chrisq PRN Reason Stop Dose Admin Acetaminophen 650 mg 12/16/23 13:00 12/19/23 08:57 Acetaminophen 325 Mg Tablet PO 650 mg Q4HR RHODA Administration Allopurinol 300 mg 12/17/23 09:00 12/19/23 08:57 Allopurinol 300 Mg Tablet PO 300 mg DAILY RHODA Administration Apixaban 2.5 mg 12/17/23 09:00 12/19/23 08:57 Apixaban 2.5 Mg Tablet PO 12/19/23 23:59 2.5 mg Q12HR RHODA Administration Apixaban 5 mg 12/20/23 09:00 Apixaban 5 Mg Tablet BY MOUTH Q12HR RHODA Cefdinir 300 mg 12/17/23 14:00 12/19/23 08:58 Cefdinir 300 Mg Capsule PO 300 mg Q12HR RHODA Administration Dextrose 12.5 gm 12/16/23 15:29 Dextrose 50% 25 Gm/50 Ml Syringe IV PUSH PRN PRN Hypoglycemia Protocol Empagliflozin 25 mg 12/17/23 09:00 12/19/23 08:57 Empagliflozin 25 Mg Tablet BY MOUTH 25 mg DAILY RHODA Administration Famotidine 20 mg 12/16/23 21:00 12/19/23 08:57 Famotidine 20 Mg Tablet PO 20 mg Q12HR RHODA Administration Furosemide 40 mg 12/17/23 09:00 Furosemide 40 Mg Tablet BY MOUTH DAILY RHODA Glipizide 5 mg 12/17/23 08:00 Glipizide Xl 5 Mg Tabcr BY MOUTH DAILY@0800 RHODA Glucagon 1 mg 12/16/23 15:29 Glucagon For Inj 1 Mg Vial IM PRN PRN Hypoglycemia Protocol Glucose 15 gm 12/16/23 15:29 Glucose Oral Gel 15 Gm Of Glucse In 37.5 Gm Tube PO PRN PRN Hypoglycemia Protocol Dextrose 1,000 mls @ 100 mls/hr 12/16/23 15:29 Dextrose 5% 1,000 Ml IVPB PRN PRN Hypoglycemia Protocol Insulin Aspart 2 - 4 units 12/16/23 21:00 12/18/23 21:00 Insulin Aspart (*Bkc) 100 Units/Ml SUB-Q 2 units HS RHODA Administration Protocol Insulin Aspart 4 - 8 units 12/16/23 17:00 12/19/23 11:35 Insulin Aspart (*Bkc) 100 Units/Ml SUB-Q Not Given TIDWM [facility] Protocol Insulin Glargine 40 units 12/16/23 21:00 12/18/23 21:01 Insulin Glargine (*Bkc) 100 Units/Ml SUB-Q 40 units HS RHODA Administration Irbesartan 150 mg 12/17/23 09:00 Irbesartan 150 Mg Tablet BY MOUTH DAILY RHODA Meclizine HCl 25 mg 12/16/23 12:03 Meclizine Hcl 25 Mg Tablet PO BID PRN dizziness Metformin HCl 2,000 mg 12/16/23 21:00 12/16/23 20:51 Metformin Hcl Xr 500 Mg Tab.Sr.24h PO 2,000 mg HS [facility] Administration Morphine Sulfate 2 mg 12/16/23 12:03 12/16/23 14:39 Morphine Sulfate (*Crx) 2 Mg/Ml Inj IV PUSH 2 mg Q2H PRN
[2023-12-19 16:35] LABS: Glucose Point of Care 195 mg/dl (65-105)
[2023-12-19 20:19] LABS: Glucose Point of Care 180 mg/dl (65-105)
[2023-12-19] MEDS: INSULIN GLARGINE (*BKC) 100 UNITS/ML 40 UNITS SUB-Q (21:07)
[2023-12-20] VITALS: PULSE 51
[2023-12-20 04:00] VITALS: PULSE 55
[2023-12-20] MEDS: ACETAMINOPHEN 325 MG TABLET 650 MG PO ×4 (04:43→16:47)
[2023-12-20 05:20] VITALS: BP 144/76; PULSE 62; RESP 20; TEMP 36.2; O2SAT 98
[2023-12-20 08:00] VITALS: PULSE 59
[2023-12-20 08:01] LABS: Glucose Point of Care 148 mg/dl (65-105)
[2023-12-20] MEDS: polyethylene glycoL 3350 17 GM POWD.PACK PO (09:19)
[2023-12-20] MEDS: SENNA/DOCUSATE SODIUM TABLET 2 TAB PO ×2 (09:21→16:47)
[2023-12-20] MEDS: allopurinoL 300 MG TABLET PO (09:21)
[2023-12-20] MEDS: EMPAGLIFLOZIN 25 MG TABLET BY MOUTH (09:21)
[2023-12-20] MEDS: APIXABAN 5 MG TABLET BY MOUTH (09:22)
[2023-12-20] MEDS: SIMVASTATIN 10 MG TABLET BY MOUTH (09:22)
[2023-12-20] MEDS: FAMOTIDINE 20 MG TABLET PO (09:22)
[2023-12-20] MEDS: CEFDINIR 300 MG CAPSULE PO (09:22)
[2023-12-20] MEDS: TOLNAFTATE 1% POWDER 45 GM BTL 1 APPLIC TOPICAL (09:22)
--- NOTE | 2023-12-20 11:27 | PCPTNOTE ---
Patient refused treatment this session due to wanting to bathe first and requested to have OT. Informed LANZA.
[2023-12-20 11:29] LABS: Glucose Point of Care 190 mg/dl (65-105)
[2023-12-20 12:00] VITALS: PULSE 61
--- NOTE | 2023-12-20 12:47 | PM.PNORT ---
Subjective Subjective Date/Time Seen: 12/20/23 12:47 Interval history: POD 4 pt is alert, pain is well controlled. Splint remains dry. Waiting on word from [facility] to accept pt. Objective Data Vital Signs Vital Signs: Vital Signs - 24 hr 12/19/23 14:00 12/19/23 16:35 12/19/23 16:00 Temperature 97.2 F L Pulse Rate 58 L 62 Respiratory Rate 20 Blood Pressure 161/64 H 144/70 H Pulse Oximetry 97 Oxygen Delivery 12/19/23 21:12 12/19/23 20:00 12/19/23 20:00 Temperature 97.4 F L Pulse Rate 59 L 58 L Respiratory Rate 20 Blood Pressure 138/69 Pulse Oximetry 96 Oxygen Delivery Room Air 12/20/23 00:00 12/20/23 05:20 12/20/23 04:00 Temperature 97.1 F L Pulse Rate 51 L 62 55 L Respiratory Rate 20 Blood Pressure 144/76 H Pulse Oximetry 98 Oxygen Delivery 12/20/23 08:00 Temperature Pulse Rate 59 L Respiratory Rate Blood Pressure Pulse Oximetry Oxygen Delivery Intake/Output Intake/Output: Intake & Output 12/17/23 12/18/23 12/19/23 12/20/23 23:59 23:59 23:59 23:59 Intake Total 1670 1826 2520 650 Output Total 1340 2550 1950 1750 Balance 330 724 570 -1100 Meds/Results Medications: Active Medications Generic Name Dose Route Start Last Admin Trade Name Freq PRN Reason Stop Dose Admin Acetaminophen 650 mg 12/16/23 13:00 12/20/23 09:22 Acetaminophen 325 Mg Tablet PO 650 mg Q4HR RHODA Administration Allopurinol 300 mg 12/17/23 09:00 12/20/23 09:21 Allopurinol 300 Mg Tablet PO 300 mg DAILY RHODA Administration Apixaban 5 mg 12/20/23 09:00 12/20/23 09:22 Apixaban 5 Mg Tablet BY MOUTH 5 mg Q12HR RHODA Administration Cefdinir 300 mg 12/17/23 14:00 12/20/23 09:22 Cefdinir 300 Mg Capsule PO 300 mg Q12HR RHODA Administration Dextrose 12.5 gm 12/16/23 15:29 Dextrose 50% 25 Gm/50 Ml Syringe IV PUSH PRN PRN Hypoglycemia Protocol Empagliflozin 25 mg 12/17/23 09:00 12/20/23 09:21 Empagliflozin 25 Mg Tablet BY MOUTH 25 mg DAILY RHODA Administration Famotidine 20 mg 12/16/23 21:00 12/20/23 09:22 Famotidine 20 Mg Tablet PO 20 mg Q12HR RHODA Administration Furosemide 40 mg 12/17/23 09:00 Furosemide 40 Mg Tablet BY MOUTH DAILY RHODA Glipizide 5 mg 12/17/23 08:00 Glipizide Xl 5 Mg Tabcr BY MOUTH DAILY@0800 RHODA Glucagon 1 mg 12/16/23 15:29 Glucagon For Inj 1 Mg Vial IM PRN PRN Hypoglycemia Protocol Glucose 15 gm 12/16/23 15:29 Glucose Oral Gel 15 Gm Of Glucse In 37.5 Gm Tube PO PRN PRN Hypoglycemia Protocol Dextrose 1,000 mls @ 100 mls/hr 12/16/23 15:29 Dextrose 5% 1,000 Ml IVPB PRN PRN Hypoglycemia Protocol Insulin Aspart 2 - 4 units 12/16/23 21:00 12/19/23 21:10 Insulin Aspart (*Bkc) 100 Units/Ml SUB-Q Not Given HS [facility] Protocol Insulin Aspart 4 - 8 units 12/16/23 17:00 12/20/23 11:33 Insulin Aspart (*Bkc) 100 Units/Ml SUB-Q Not Given TIDWM [facility] Protocol Insulin Glargine 40 units 12/16/23 21:00 12/19/23 21:07 Insulin Glargine (*Bkc) 100 Units/Ml SUB-Q 40 units HS RHODA Administration Irbesartan 150 mg 12/17/23 09:00 Irbesartan 150 Mg Tablet BY MOUTH DAILY RHODA Meclizine HCl 25 mg 12/16/23 12:03 Meclizine Hcl 25 Mg Tablet PO BID PRN dizziness Metformin HCl 2,000 mg 12/16/23 21:00 12/16/23 20:51 Metformin Hcl Xr 500 Mg Tab.Sr.24h PO 2,000 mg HS RHODA Administration Morphine Sulfate 2 mg 12/16/23 12:03 12/16/23 14:39 Morphine Sulfate (*Crx) 2 Mg/Ml Inj IV PUSH 2 mg Q2H PRN Administration Breakthrough Pain Rated 4-6 or NPO Naloxone HCl 0.1 mg 12/16/23 12:03 Naloxone Hcl 0.4 Mg/Ml Vial IV PUSH Q2M PRN Opiate Reversal Ondansetron HCl 4 mg 12/16/23 12:03 Ondansetron Inj 4 Mg/2 Ml Vial IV PUSH Q4H PRN Nausea And Vomiting Oxycodone HCl 5 mg 12/16/23 13:00 12/20/23 09:18
--- NOTE | 2023-12-20 13:52 | PCOTNOTE ---
Decrease in frequency for OT services from Daily to 3-5x/wk
[2023-12-20 14:00] VITALS: BP 129/72; PULSE 63; RESP 20; TEMP 36.2; O2SAT 99
[2023-12-20 16:21] LABS: Glucose Point of Care 130 mg/dl (65-105)
[2023-12-20 17:30] LABS: SARS-CoV-2 RNA PCR Negative (Negative)
== END 2023-12-20 18:20 ==
LOC: ANHSURGERY 14:06 → ANH3MEDSUR 14:06
PROVIDERS: Nurse Practitioner Family; Physician Assistant; Physician Assistant Surgical; Admitting Provider Orthopaedic Surgery; PCP Family Medicine; Visit Provider Orthopaedic Surgery
PROC: (CPT 27822; principal; 2023-12-16 07:30)
DX: S82.851A Displaced trimalleolar fracture of right lower leg, initial encounter for closed fracture (principal); W19.XXXA Unspecified fall, initial encounter; I48.91 Unspecified atrial fibrillation; E11.9 Type 2 diabetes mellitus without complications; I11.0 Hypertensive heart disease with heart failure; I50.32 Chronic diastolic (congestive) heart failure; I25.2 Old myocardial infarction; G47.33 Obstructive sleep apnea (adult) (pediatric); N40.0 Benign prostatic hyperplasia without lower urinary tract symptoms; Z11.52 Encounter for screening for COVID-19; Z86.73 Personal history of transient ischemic attack (TIA), and cerebral infarction without residual deficits; Z85.46 Personal history of malignant neoplasm of prostate; Z79.84 Long term (current) use of oral hypoglycemic drugs; Z79.4 Long term (current) use of insulin; Z79.01 Long term (current) use of anticoagulants; E66.01 Morbid (severe) obesity due to excess calories; Z68.42 Body mass index [BMI] 45.0-49.9, adult
CPT/HCPCS: 27822; 36415; 80048; 80076; 82948; 83735; 85025; 87081; 87635; 97110; 97161; 97166; 97530; 97535; 99199; A9270; C1713; C1769; G0378; J0690; J1170; J1815; J1885; J2250; J2270; J2405; J2704; J3010; J3370; J7030; J7040; J7120

== ENCOUNTER 2024-03-06 12:29 | Outpatient (CLI) | payer MEDICARE, SELFPAY ==
--- NOTE | ~2024-03-06 | XR_ITS ---
EXAMINATION: [id number] DATE: 03/06/2024 12:54 INDICATION: Right knee pain. TECHNIQUE: 2 views of right knee standing were obtained. COMPARISON: None. FINDINGS: Alignment is normal. No fracture. There is mild tricompartmental osteoarthritis. No knee angel int effusion. IMPRESSION: 1. Mild right knee osteoarthritis. Reviewed, dictated and finalized at location A.
== END 2024-03-06 12:30 | disposition home or self-care (01) ==
PROVIDERS: PCP Family Medicine; Visit Provider Student in an Organized Health Care Education/Training Program
DX: M17.11 Unilateral primary osteoarthritis, right knee (principal)
CPT/HCPCS: 73560

== ENCOUNTER 2024-04-22 07:15 | Outpatient (RCR) | payer MEDICARE, SELFPAY ==
[2024-01-30 09:47] VITALS: BMI 39.9
== END 2024-04-29 23:59 | disposition home or self-care (01) ==
LOC: ANHWOC 07:15
PROVIDERS: PCP Family Medicine; Visit Provider Physician Assistant Surgical
DX: S82.851S Displaced trimalleolar fracture of right lower leg, sequela (principal); Z87.81 Personal history of (healed) traumatic fracture; Z98.890 Other specified postprocedural states; L97.912 Non-pressure chronic ulcer of unspecified part of right lower leg with fat layer exposed; Z48.00 Encounter for change or removal of nonsurgical wound dressing
CPT/HCPCS: 99213; 99214; A9270; G0463

== ENCOUNTER 2024-05-06 09:24 | Outpatient (RCR) | payer MEDICARE, SELFPAY ==
[2024-04-30 00:06] VITALS: BMI 39.9
== END 2024-07-20 14:29 | disposition home or self-care (01) ==
LOC: ANHWOC 09:24
PROVIDERS: PCP Family Medicine; Visit Provider Physician Assistant Surgical
DX: Z48.00 Encounter for change or removal of nonsurgical wound dressing (principal); S82.851S Displaced trimalleolar fracture of right lower leg, sequela; L97.912 Non-pressure chronic ulcer of unspecified part of right lower leg with fat layer exposed; Z87.81 Personal history of (healed) traumatic fracture; Z98.890 Other specified postprocedural states
CPT/HCPCS: 99212; G0463

== ENCOUNTER 2024-09-27 09:42 | Emergency (ER) | payer OTHER, MEDICARE, SELFPAY ==
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
--- OUTSIDE RECORDS SUMMARY | 2024-09-27 09:45 | XMS_ITS | Continuity of Care Document ---
Author Organization [facility] Address [id number] [place] [address] [address] [place] [address] Phone Care Team Providers Care Supervisor Cooler Service Name Role Phone Christian, Edrom Unavailable Unavailable Advance Directives Directive Yes / No Effective Date File Name No Information Encounters Encounter Description Practice Location Reason(s) For Visit Diagnoses Date Provider Providers Copied on Encounter [facility], [address], [place], [place], [id number], [place] tel:[phone] [facility] No Information Dec-2 0-200 0 Doisy Edward. [address] , [address], [place], [address], [place]. tel:[phone] Family History Family Member Type Diagnosis Age At Onset No Information Payers Payer name Insurance type Covered republican ID Authoriza tion(s) No Information Social History [...]
--- OUTSIDE RECORDS SUMMARY | 2024-09-27 09:45 | XMS_ITS | Clinical Summary ---
Author Organization [facility] Address [address] [place] [address] Care Team Providers Care Asparagus Buncher Name Role Phone Davide Navarro Primary Care Provider Unavaila ble Source Comments [facility],non-owned Affiliates and Associated Physician Practices is amultiple site organization consisting of ambulatory clinics and hospital sitesin [place] and [place]. This disclosure is being madepursuant to the Care Everywhere program and may not contain all information available regarding this patient. Last updated 18.[facility] Allergies No known active allergies Medications * Be aware that medications may not be up to date on this document. Alwaysverify current medications with the patient. Medication Sig Dispensed Refills Start Date End Date Status metFORMIN (GLUCOPHAGE) 500 MG tablet Take 500 mg by mouth once daily. 10/18/2014 Active glyBURIDE (DIABETA; MICRONASE) 5 MG tablet Take 5 mg by mouth 2 times daily. Take with a meal. 10/18/2014 Active metoprolol tartrate (LOPRESSOR) 50 MG tablet Take 50 mg by mouth 2 times daily. 10/18/2014 Active warfarin (COUMADIN) 5 MG tablet Take 5 mg by mouth. 10/18/2014 Activ e simvastatin (ZOCOR) 40 MG tablet Take 40 mg by mouth at bedtime. 10/18/2014 Active allopurinol (ZYLOPRIM) 300 MG tablet Take 300 mg by mouth once daily. 10/18/2014 Active tamsulosin (FLOMAX) 0.4 MG capsule Take 0.4 mg by mouth once daily. Take 30 minutes after a meal at the same time each day. 10/18/2014 Active dilTIAZem coated beads 24hr (CARDIZEM CD) 240 MG capsule Take 240 mg by mouth once daily. 10/18/2014 Active Other invarkana 10/18/2014 Active TESTOSTERONE CYPIONATE 250MG INJ 400mg 10/18/2014 Active Exenatide (BYETTA 10 MCG PEN SC) Inject subcutaneously. 10/18/2014 Active codeine-guaiFENesi n (ROBITUSSIN-AC) 100-10 MG/5ML solution Take 5 mL by mouth every 4 hours as needed for Cough. 100 mL 0 10/18/2014 Active Additional Information Patient not taking.Reported on 11/06/2020 empagliflozin (JARDIANCE) 25 MG tablet Take 25 mg by mouth once daily Active furosemide (LASIX) 40 MG tablet Take 40 mg by mouth once daily Active glimepiride (AMARYL) 4 MG tablet Take 4 mg by mouth daily with breakfast Active irbesartan (AVAPRO) 300 MG tablet Take 300 mg by mouth once daily Active pioglitazone (ACTOS) 45 MG tablet Take 45 mg by mouth once daily Active SEMAGLUTIDE, 1 MG/DOSE, SC Inject 0.5 mg subcutaneously every 7 days Active simvastatin (ZOCOR) 10 MG tablet Take 10 mg by mouth at bedtime Active warfarin (COUMADIN) 4 MG tablet Take 4 mg by mouth once daily 4mg daily except 2 days 5 mg Active Social History Tobacco Use Types Packs/Day Years Used Date Smoking Tobacco: Never Smokeless Tobacco: Never Sex and Gender Information Value Date Recorded Sex Assigned at Not on file Gender Identity Not on file Sexual Orientation Not on file Last Filed Vital Signs Vital Sign Reading Time Taken Comments Blood Pressure 118/72 11/06/2020 4:25 PM CDT Pulse 75 11/06/2020 4:25 PM CDT Temperature 36.4 C (97.6 F) 11/06/2020 4:25 PM CDT Respiratory Rate 14 11/06/2020 4:25 PM CDT Oxygen Saturation 96% 11/06/2020 4:25 PM CDT Inhaled Oxygen Concentration - - Weight 138.8 kg (306 lb) 11/06/2020 4:25 PM CDT Height 182.9 cm (6') 11/06/2020 4:25 PM CDT Body Mass Index 41.5 11/06/2020 4:25 PM CDT Plan of Treatment Health Maintenance Due Date Last Done Comments DTAP/TDAP/TD VACCINES (1 - Tdap) 1962 PNEUMOCOCCAL VACCINE 50+ (1 of 1 - PCV) 1993 ZOSTER VACCINE (1 of 2) 1993 Respiratory Syncytial Virus (RSV) Vaccine Pt: or over 60 yrs (1 - 1-dose 75+ series) 2018 COVID-19 VACCINE (3 - 2023-2 5 season) 2024 09/01/2020, 08/04/2020 INFLUENZA VACCINE (#1) 2024 04/07/2020 DEPRESSION SCREENING 06/24/2024 MEDICARE AWV CALENDAR YEAR 2024 HEPATITIS B VACCINE Aged Out No longe r eligible based on patient's age to complete this topic HIB VACCINE Aged Out No longer eligi ble based on patient's age to complete this topic HPV VACCINE Aged Out No longer eligi ble based on patient's age to complete this topic MENINGOCOCCAL (Group B) VACCINE SHARED DECISION-MAKING Aged Out No longer eligible based on patient's age to complete this topic MENINGOCOCCAL GROUPS A/C/Y/W VACCINE Aged Out No longer eligible b ased on patient's age to complete this topic Care Teams Asparagus Buncher Relationship Specialty Start Date End Date Davide Navarro Update Information PCP - General 11/06/20
--- OUTSIDE RECORDS SUMMARY | 2024-09-27 09:45 | XMS_ITS | Referral Summary ---
Author Organization [facility] Address [address] [place] [phone] Care Team Providers Care Interior Decorator Paperhanging Name Role Phone Nabila Sanon MD Primary Care Provider [phone] Allergies No known active allergies Medications allopurinoL (ZYLOPRIM) 300 mg tablet Take 300 mg by mouth daily 2 Active Jardiance 25 mg tablet Take 25 mg by mouth daily 2 Active furosemide (LASIX) 40 mg tablet Take 40 mg by mouth 2 (two) times a day with breakfast and lunch 2 Active glipiZIDE XL (GLUCOTROL XL) 10 mg 24 hr tablet Take 10 mg by mouth daily 2 Active LANTUS 100 unit/mL (3 mL) pen for injection 18 Units nightly 2 Active metFORMIN XR (GLUCOPHAGE XR) 500 mg 24 hr tablet Take 2,000 mg by mouth nightly 2 Active metoprolol tartrate (LOPRESSOR) 50 mg immediate release tablet Take 50 mg by mouth 2 (two) times a day 2 Active simvastatin (ZOCOR) 10 mg tablet Take 10 mg by mouth nightly 2 Active silver sulfadiazine (SILVADENE, SSD) 1 % cream as needed 2 Active cholecalciferol (VITAMIN D-3) 25 mcg (1,000 unit) tablet Take 2,000 Units by mouth daily Active warfarin (COUMADIN) 4 mg tablet Take 1 tablet (4 mg total) by mouth daily 5 mg on F4 mg 4 tablet 3 2 Active irbesartan (AVAPRO) 300 mg tablet Take 300 mg by mouth daily 2 Active silodosin (RAPAFLO) 4 mg capsule Take 4 mg by mouth nightly 2 Active Active Problems Problem Noted Date Diagnosed Date Dyspnea 12/01/2021 Overview (12/01/2021): Added automatically from request for surgery [id number] Abnormal stress test 12/01/2021 Overview (12/01/2021): Added automatically from request for surgery [id number] Social History Tobacco Use Types Packs/Day Years Used Date Smoking Tobacco: Never Smokeless Tobacco: Never AUDIT-C Answer Date Recorded Q1: How often do you have a drink containing alc ohol? Monthly or less 12/22/2021 Q2: How many drinks containi ng alcohol do you have on a typical day when you are drinking? 1 or 2 12/22/2021 Q3: How often do you have si x or more drinks on one occasion? Never 12/22/2021 Personal Safety Answer Date Recorded Getting School Help Needed Not on file 08/23 Sex and Gender Information Value Date Recorded Sex Assigned at Not on file Legal Sex Male 7:54 PM CDT Gender Identity Not on file Sexual Orientation Not on file Last Filed Vital Signs Vital Sign Reading Time Taken Comments Blood Pressure 135/83 03/24/2022 2:23 PM CDT Pulse 87 03/24/2022 2:23 PM CDT Temperature 36.4 C (97.6 F) 03/24/2022 2:23 PM CDT Respiratory Rate 20 03/24/2022 2:23 PM CDT Oxygen Saturation 98% 03/24/2022 2:23 PM CDT Inhaled Oxygen Concentration - - Weight 135.6 kg (299 lb) 03/24/2022 2:23 PM CDT Height 182.9 cm (6') 03/24/2022 2:23 PM CDT Body Mass Index 40.55 03/24/2022 2:23 PM CDT Plan of Treatment Not on file Medical Devices Implanted Type Area Supervisor Of Officials Device Identifier Shelf Expiration Date Model / Serial / Lot [employer] Device 10ml 5fr Closure Mynx Control 2 Mode Balloon Catheter [id number] - [id number] Implanted:Qty: 1 on 12/22/2021 by Jose Elias Garcia MD at [facility] [employer] 11/22/2023 [id number] / / [id number] Insurance [facility] MEDICARE ADVANTAGE [facility] Address: [facility] [id number] [place] [phone] Care Teams Interior Decorator Paperhanging Relationship Specialty Start Date End Date Nabila Sanon MD PCP - General 12/22/21
--- OUTSIDE RECORDS SUMMARY | 2024-09-27 09:45 | XMS_ITS | Clinical Summary ---
Author Organization [facility] Address [address] [place] [address] Care Team Providers Care Diamond Finishing Supervisor Name Role Phone Nabila Sanon MD Primary Care Provider [phone] Allergies No known active allergies Medications allopurinoL [...] (12/01/2021): Added automatically from request for surgery [id number] Abnormal stress test 12/01/2021 Overview (12/01/2021): Added automatically from request for surgery [id number] Surgical History Surgery Date Site/Laterality Comments PROSTATE BIOPSY CIRCUMCISION TONSILLECTOMY/ADENOIDECTOMY Medical History Medical History Date Comments Sleep apnea C pap recalled Hypertension HLD (hyperlipidemia) Abnormal cardiovascular stress test CAD (coronary artery disease) CHF (congestive heart failure) (HCC) Prostate cancer (HCC) Type 2 diabetes mellitus (HCC) Stroke (HCC) X 5 Gout Family History Medical History Relation Name Comments Diabetes Father Heart disease Father Tuberculosis Father Heart disease Mother Relation Name Status Comments Father Mother Social History Tobacco Use Types Packs/Day Years [...] on file Sexual Orientation Not on file Obstetrics History Last Filed Vital Signs Vital Sign Reading [...] 03/24/2022 2:23 PM CDT Plan of Treatment Health Maintenance Due Date Last Done Comments Depression Screening 1943 DTaP/Tdap/Td Vaccine (1 - Tdap) 1954 Hepatitis B Screening 1961 Pneumococcal vaccine 65+ (1 of 1 - PCV) 1993 Zoster Vaccine (1 of 2) 1993 Well Visit 65+ 02/27/2008 Fall Risk Assessment 12/22/2022 12/22/2021 Influenza Vaccine (#1) 2024 Medical Devices Implanted Type Area Electrical Electronics Engineers Device Identifier Shelf Expiration Date Model / Serial / Lot [employer] Device 10ml 5fr Closure Mynx Control 2 Mode Balloon Catheter [id number] - [id number] Implanted:Qty: 1 on 12/22/2021 by Jose Elias Garcia MD at [facility] [employer] 11/22/2023 [id number] / / [id number] Insurance [facility] [place] [address] Care Teams Diamond Finishing Supervisor Relationship Specialty Start Date End Date Nabila Sanon MD [facility] - General 12/22/21
[2024-09-27 10:17] VITALS: BP 155/60; PULSE 66; RESP 16; TEMP 36.6; O2SAT 95
--- OUTSIDE RECORDS SUMMARY | 2024-09-27 11:38 | XMS_ITS | Referral Summary ---
Author Organization [facility] Address [address] [place] [address] Care Team Providers Care Canine Service Instructor Trainer Name Role Phone Nabila Sanon MD Primary Care Provider [phone] Allergies No known active allergies Medications allopurinoL [...] (12/01/2021): Added automatically from request for surgery [id number] Abnormal stress test 12/01/2021 Overview (12/01/2021): Added automatically from request for surgery [id number] Social History Tobacco Use Types Packs/Day Years [...] on file Medical Devices Implanted Type Area Caponizer Device Identifier Shelf Expiration Date Model / Serial / Lot [employer] Device 10ml 5fr Closure Mynx Control 2 Mode Balloon Catheter [id number] - [id number] Implanted:Qty: 1 on 12/22/2021 by Jose Elias Garcia MD at [facility] [employer] 11/22/2023 [id number] / / [id number] Insurance [facility] MEDICARE ADVANTAGE Care Teams Canine Service Instructor Trainer Relationship Specialty Start Date End Date Nabila Sanon MD PCP - General 12/22/21
--- OUTSIDE RECORDS SUMMARY | 2024-09-27 11:38 | XMS_ITS | Clinical Summary ---
Author Organization [facility] Address [address] [place] [address] Care Team Providers Care Oil Expeller Name Role Phone Davide Navarro Primary Care Provider Unavaila ble Source Comments [facility],non-owned Affiliates and Associated Physician Practices is amultiple site organization consisting of ambulatory clinics and hospital sitesin [place], [place], [place] and [place]. This disclosure is being madepursuant to the Care Everywhere program and may not contain all information available regarding this patient. Last updated 18.[facility] Allergies No known active allergies Medications * [...] age to complete this topic Care Teams Oil Expeller Relationship Specialty Start Date End Date Davide Navarro Update Information PCP - General 11/06/20
--- OUTSIDE RECORDS SUMMARY | 2024-09-27 11:38 | XMS_ITS | Continuity of Care Document ---
Author Organization [facility] Address [address] [place] [address] [address] [place] [address] Phone Care Team Providers Care Ward Aide Name Role Phone Christian, Edrom Unavailable Unavailable Advance Directives Directive Yes / No Effective Date File Name No Information Encounters Encounter Description Practice Location Reason(s) For Visit Diagnoses Date Provider Providers Copied on Encounter [facility], [address], [place], [place], [id number], [place] tel:[phone] [facility] No Information Dec-2 0-200 0 Doisy Edward. [address], [place], [address], [place]. tel:[phone] Family History Family Member Type Diagnosis Age [...]
--- OUTSIDE RECORDS SUMMARY | 2024-09-27 11:38 | XMS_ITS | Clinical Summary ---
Author Organization [facility] Address [address] [place] [address] Care Team Providers Care Elementary Education Teacher Name Role Phone Nabila Sanon MD Primary Care Provider [phone] Allergies No known active allergies Medications allopurinoL [...] (12/01/2021): Added automatically from request for surgery [id number] Abnormal stress test 12/01/2021 Overview (12/01/2021): Added automatically from request for surgery [id number] Surgical History Surgery Date Site/Laterality Comments PROSTATE [...] (#1) 2024 Medical Devices Implanted Type Area Batch Unloader Device Identifier Shelf Expiration Date Model / Serial / Lot [employer] Device 10ml 5fr Closure Mynx Control 2 Mode Balloon Catheter [id number] - [id number] Implanted:Qty: 1 on 12/22/2021 by Jose Elias Garcia MD at [facility] [employer] 11/22/2023 [id number] / / [id number] Insurance [facility] MEDICARE ADVANTAGE Care Teams Elementary Education Teacher Relationship Specialty Start Date End Date Nabila Sanon MD [facility] - General 12/22/21
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
[2024-09-27 12:48] VITALS: BP 108/71; PULSE 75; RESP 18; O2SAT 94
== END 2024-09-27 12:50 | disposition home or self-care (01) ==
PROVIDERS: Emergency Provider Family Medicine; PCP Family Medicine
DX: S00.03XA Contusion of scalp, initial encounter (principal); Z79.01 Long term (current) use of anticoagulants; Z79.84 Long term (current) use of oral hypoglycemic drugs; Z79.899 Other long term (current) drug therapy; Z79.4 Long term (current) use of insulin; V43.53XA Car driver injured in collision with pick-up truck in traffic accident, initial encounter
CPT/HCPCS: 70450; 99284

== ENCOUNTER 2025-03-05 16:55 | Outpatient (CLI) | payer MEDICARE, SELFPAY ==
--- OUTSIDE RECORDS SUMMARY | 2000-06-12 04:15 | XMS_ITS | Continuity of Care Document ---
Author Organization [facility] Address [id number] [place] [address] [address] [place] [address] Phone Care Team Providers Care Set Up Person Name Role Phone Christian, Edrom Unavailable Unavailable Advance Directives Directive Yes / No Effective Date File Name No Information Encounters Encounter Description Practice Location Reason(s) For Visit Diagnoses Date Provider Providers Copied on Encounter [facility], [address], [place], [place], [id number], [place] tel:[phone] [facility] No Information Dec-2 0-200 0 Doisy Edward. [address] , [address], [place], [address], [place]. tel:[phone] Family History Family Member Type Diagnosis Age At Onset No Information Payers Payer name Insurance type Covered libertarian ID Authoriza tion(s) No Information Social History [...]
--- NOTE | ~2025-03-05 | XR_ITS ---
EXAMINATION: XR chest 2V, 03/05/2025 17:03 CDT HISTORY: R06.89 - Other abnormalities of breathing COMPARISON: No comparisons available. Technique: 2 views obtained. Findings: Scattered small basilar interstitial air space opacities. Mild pulmonary venous congestion. No pneumothorax. Mild cardiomegaly. Mediastinal and hilar contours are within normal limits. Bony thorax no acute abnormality. Impression: Mild CHF. Superimposed early pneumonia suspected Reviewed, dictated and finalized at location A. Impression: Mild CHF. Superimposed early pneumonia suspected
--- OUTSIDE RECORDS SUMMARY | 2025-03-05 16:59 | XMS_ITS | Clinical Summary ---
Author Organization [facility] Recorded Future Address [address] [place] [address] Care Team Providers Care New Client Banking Services Clerk Name Role Phone Davide Navarro Primary Care Provider Unavaila ble Source Comments [facility] Recorded Future,non-owned Affiliates and Associated Physician Practices is amultiple site organization consisting of ambulatory clinics and hospital sitesin [place], [place], [place] and [place]. This disclosure is being madepursuant to the Care Everywhere program and may not contain all information available regarding this patient. Last updated 18.[facility] Recorded Future Allergies No known active allergies Medications * Be aware that medications may not be up to date on this document. Alwaysverify current medications with the patient. metFORMIN (GLUCOPHAGE) 500 MG tablet Take 500 mg by mouth once daily. 5 Active glyBURIDE (DIABETA; MICRONASE) 5 MG tablet Take 5 mg by mouth 2 times daily. Take with a meal. 5 Active metoprolol tartrate (LOPRESSOR) 50 MG tablet Take 50 mg by mouth 2 times daily. 5 Active warfarin (COUMADIN) 5 MG tablet Take 5 mg by mouth. 5 Active simvastatin (ZOCOR) 40 MG tablet Take 40 mg by mouth at bedtime. 5 Active allopurinol (ZYLOPRIM) 300 MG tablet Take 300 mg by mouth once daily. 5 Active tamsulosin (FLOMAX) 0.4 MG capsule Take 0.4 mg by mouth once daily. Take 30 minutes after a meal at the same time each day. 5 Active dilTIAZem coated beads 24hr (CARDIZEM CD) 240 MG capsule Take 240 mg by mouth once daily. 5 Active Other invarkana 5 Active TESTOSTERONE CYPIONATE 250MG INJ 400mg 5 Active Exenatide (BYETTA 10 MCG PEN SC) Inject subcutaneously. 5 Active codeine-guaiFE Nesin (ROBITUSSIN-AC ) 100-10 MG/5ML solution Take 5 mL by mouth every 4 hours as needed for Cough. 100 mL 0 5 Active Additional Information Patient not taking.Reported on [...] at Not on file Legal Sex Male 7:33 AM CDT Gender Identity Not on file Sexual [...] yrs (1 - 1-dose 75+ series) 2018 DEPRESSION SCREENING 06/24/2024 COVID-19 VACCINE (3 - 2024-2 6 season) 2025 09/01/2020, 08/04/2020 INFLUENZA VACCINE (#1) 2025 04/07/2020 HEPATITIS B VACCINE Aged Out No longe [...] on patient's age to complete this topic Insurance [facility] MEDICARE ADV Care Teams New Client Banking Services Clerk Relationship Specialty Start Date End Date Davide Navarro Update Information PCP - General 11/06/20
--- OUTSIDE RECORDS SUMMARY | 2025-03-05 16:59 | XMS_ITS | Clinical Summary ---
Author Organization [facility] Address [address] [place] [id number] Care Team Providers Care Field Training Manager Name Role Phone Nabila Sanon MD Primary Care Provider [phone] Allergies No known active allergies Medications allopurinoL [...] (12/01/2021): Added automatically from request for surgery [id number] Abnormal stress test 12/01/2021 Overview (12/01/2021): Added automatically from request for surgery [id number] Surgical History Surgery Date Site/Laterality Comments PROSTATE BIOPSY CIRCUMCISION TONSILLECTOMY/ADENOIDECTOMY Medical History Medical History Date Comments Sleep apnea C pap recalled Hypertension HLD (hyperlipidemia) Abnormal cardiovascular stress test CAD (coronary artery disease) CHF (congestive heart failure) (HCC) Prostate cancer (HCC) Type 2 diabetes mellitus Stroke (HCC) X 5 Gout Family History [...] Risk Assessment 12/22/2022 12/22/2021 Influenza Vaccine (#1) 2025 Medical Devices Implanted Type Area Sales Representative Publications Device Identifier Shelf Expiration Date Model / Serial / Lot [employer] Device 10ml 5fr Closure Mynx Control 2 Mode Balloon Catheter [id number] - [id number] Implanted:Qty: 1 on 12/22/2021 by Jose Elias Garcia MD at [facility] [employer] 11/22/2023 [id number] / / [id number] Insurance [facility] MEDICARE ADVANTAGE Care Teams Field Training Manager Relationship Specialty Start Date End Date Nabila Sanon MD PCP - General 12/22/21
== END 2025-03-05 16:56 | disposition home or self-care (01) ==
LOC: ANHIMG 16:58
PROVIDERS: PCP Family Medicine; Visit Provider Family Medicine
DX: R06.89 Other abnormalities of breathing (principal); I50.9 Heart failure, unspecified
CPT/HCPCS: 71046

== ENCOUNTER 2025-03-19 12:26 | Outpatient (CLI) | payer MEDICARE, SELFPAY ==
--- OUTSIDE RECORDS SUMMARY | 2000-06-12 04:15 | XMS_ITS | Continuity of Care Document ---
Author Organization [facility] Address [id number] [place] [address] [address] [place] [address] Phone Care Team Providers Care Dresser Tender Name Role Phone Christian, Edrom Unavailable Unavailable Advance Directives Directive Yes / No Effective Date File Name No Information Encounters Encounter Description Practice Location Reason(s) For Visit Diagnoses Date Provider Providers Copied on Encounter [facility], [address], [place], [place], [id number], [place] tel:[phone] [facility] No Information Dec-2 0-200 0 Doisy Edward. [address] , [address], [place], [address], [place]. tel:[phone] Family History Family Member Type Diagnosis Age At Onset No Information Payers Payer name Insurance type Covered constitution party ID Authoriza tion(s) No Information Social History Type Description Quantity Date Captured Comments Sex Male Smoking Status No Information Chief Complaint And Reason For Visit No Information Reason For Referral Reason For Referral No Information History Of Present Illness Encounter Date Complaint History Of Prese nt Illness No Information Functional Status Date Functional Assessmen t No Information Instructions Date Instruction Additional Infor mation No Information Assessments Type Assessment Date No Information Patient Care Teams Name Effective Dates (start - stop) Status Members No Information
--- NOTE | ~2025-03-19 | XR_ITS ---
Examination: XR chest 2V Clinical History: I50.9 - Heart failure, unspecified Comparison: 03/05/2025 Technique: PA and Lateral Findings: Heart size upper limit of normal. Chronic elevation right hemidiaphragm, associated basilar atelectasis or scarring. Streaky bibasilar atelectasis. Lungs otherwise clear No acute bony abnormality. IMPRESSION: 1. No acute cardiopulmonary findings. Reviewed, dictated and finalized at location R.
--- OUTSIDE RECORDS SUMMARY | 2025-03-19 12:31 | XMS_ITS | Clinical Summary ---
Author Organization [facility] Address [address] [place] [id number] Care Team Providers Care Inspector Machine Cut Glass Name Role Phone Nabila Sanon MD Primary Care Provider [phone] Allergies No known active allergies Medications allopurinoL [...] (12/01/2021): Added automatically from request for surgery [id number] Abnormal stress test 12/01/2021 Overview (12/01/2021): Added automatically from request for surgery [id number] Surgical History Surgery Date Site/Laterality Comments PROSTATE [...] (#1) 2025 Medical Devices Implanted Type Area Drain Tiler Device Identifier Shelf Expiration Date Model / Serial / Lot [employer] Device 10ml 5fr Closure Mynx Control 2 Mode Balloon Catheter [id number] - [id number] Implanted:Qty: 1 on 12/22/2021 by Jose Elias Garcia MD at [facility] [employer] 11/22/2023 [id number] / / [id number] Insurance [facility] MEDIC[facility]ANTAGE [facility] Address: [facility] [address] [place] [address] Care Teams Inspector Machine Cut Glass Relationship Specialty Start Date End Date Nabila Sanon MD PCP - General 12/22/21
--- OUTSIDE RECORDS SUMMARY | 2025-03-19 12:31 | XMS_ITS | Clinical Summary ---
Author Organization [facility] [employer] Address [address] [place] [address] Care Team Providers Care Clinical Genetics Laboratory Chief Name Role Phone Davide Navarro Primary Care Provider Unavaila ble Source Comments [facility] [employer],non-owned Affiliates and Associated Physician Practices is amultiple site organization consisting of ambulatory clinics and hospital sitesin [place], [place], [place] and [place]. This disclosure is being madepursuant to the Care Everywhere program and may not contain all information available regarding this patient. Last updated 18.[facility] [employer] Allergies No known active allergies Medications * [...] patient's age to complete this topic Insurance [facility] MEDICARE ADV Care Teams Clinical Genetics Laboratory Chief Relationship Specialty Start Date End Date Davide Navarro Update Information PCP - General 11/06/20
== END 2025-03-19 12:27 | disposition home or self-care (01) ==
PROVIDERS: PCP Family Medicine; Visit Provider Student in an Organized Health Care Education/Training Program
DX: I50.9 Heart failure, unspecified (principal); R06.00 Dyspnea, unspecified
CPT/HCPCS: 71046